=== PATIENT | male | born 1970 | race African-American/Black ===

== ENCOUNTER 2018-02-03 09:57 | Inpatient (IN) | payer MEDICAID ==
[~2018-02-03] VITALS: Ht 170.2 cm; Wt 79.4 kg
--- NOTE | 2018-02-03 10:49 | Emergency Room Report ---
History of Present Illness General Chief Complaint: Lower Extremity Injury Source: Patient Present Illness HPI Patient initially presents for complaints of pain to the left knee 2 days ago he was getting out of a car when he turned He felt a pop in the left knee However while here the patient also reports that he has had swelling in the left calf area over the past 3 weeks He reports he had extensive blood work and x-ray imaging recently at [facility] Denies any chest pain or shortness of breath Denies any other fall or other trauma Allergies: Coded Allergies: PENICILLINS (Verified Allergy, Unknown, 02/03/18) Patient History Past Medical History: see triage record Pertinent Family History: none Reviewed Nursing Documentation: PMH: Agreed; PSxH: Agreed Nursing Documentation-PMH Past Medical History: No Stated History Review of Systems All Other Systems: negative except mentioned in HPI Physical Exam Vital Signs Date Time Temp Pulse Resp B/P (MAP) Pulse Ox O2 Delivery O2 Flow Rate FiO2 02/03/18 10:06 98.7 93 18 142/96 97 Room Air 98.8 Sp02 EP Interpretation: reviewed, normal General Appearance: well appearing, no apparent distress Head: normocephalic, atraumatic Eyes: bilateral eye PERRL, bilateral eye EOMI ENT: normal pharynx, no angioedema Neck: supple Respiratory: lungs clear, normal breath sounds Cardiovascular #1: regular rate, rhythm Gastrointestinal: non tender, soft Musculoskeletal: back normal, other - Some tenderness palpated to the left knee , no obvious effusion, swelling is noted with dependent edema to the left ankle calf Is nontender Neurologic: alert, oriented x3, responsive Skin: other - As above Lymphatic: no adenopathy Medical Decision Making Diagnostic Impression: Primary Impression: DVT (deep venous thrombosis) ER Course Multiple differentials considered Given the patient's swelling in the leg ultrasound was obtained It does show evidence of posterior tibial blood clot this is a deep vein However given the distal aspect below the knee Treatment is controversial given the patient's lack of any obvious appropriate outpatient follow-up Lovenox was provided and patient admitted for further inpatient care and consultation Labs Test 02/03/18 12:13 White Blood Count 6.2 K/UL (4.8-10.8) Red Blood Count 4.64 M/UL (4.70-6.10) Hemoglobin 13.1 G/DL (14.2-18.0) Hematocrit 38.5 % (42.0-52.0) Mean Corpuscular Volume 83 FL (80-99) Mean Corpuscular Hemoglobin 28.3 PG (27.0-31.0) Mean Corpuscular Hemoglobin Concent 34.1 G/DL (32.0-36.0) Red Cell Distribution Width 11.9 % (11.6-14.8) Platelet Count 217 K/UL (150-450) Mean Platelet Volume 7.3 FL (6.5-10.1) Neutrophils (%) (Auto) 75.1 % (45.0-75.0) Lymphocytes (%) (Auto) 16.9 % (20.0-45.0) Monocytes (%) (Auto) 6.2 % (1.0-10.0) Eosinophils (%) (Auto) 1.1 % (0.0-3.0) Basophils (%) (Auto) 0.7 % (0.0-2.0) Prothrombin Time 10.6 SEC (9.30-11.50) Prothromb Time International Ratio 1.0 (0.9-1.1) Activated Partial Thromboplast Time 29 SEC (23-33) Sodium Level 139 MMOL/L (136-145) Potassium Level 4.5 MMOL/L (3.5-5.1) Chloride Level 105 MMOL/L (98-107) Carbon Dioxide Level 26 MMOL/L (21-32) Anion Gap 8 mmol/L (5-15) Blood Urea Nitrogen 13 mg/dL (7-18) Creatinine 1.1 MG/DL (0.55-1.30) Estimat Glomerular Filtration Rate > 60 mL/min (>60) Glucose Level 98 MG/DL (74-106) Calcium Level 9.3 MG/DL (8.5-10.1) Rhythm Strip Diag. Results EP Interpretation: yes Rate: 77 Rhythm: NSR, no PVC's, no ectopy Other X-Ray Diagnostic Results Other X-Ray Diagnostic Results : X-Ray ordered: Left knee # of Views/Limited Vs Complete: 3 View Indication: Pain EP Interpretation: Yes Interpretation: no dislocation, no soft tissue swelling, no fractures Impression: No acute disease Electronically Signed by: Saranya Dockery, DO CT/MRI/US Diagnostic Results CT/MRI/US Diagnostic Results : Impression venous ultrasound: evidence of DVT left posterior tibial vein Last Vital Signs Date Time Temp Pulse Resp B/P (MAP) Pulse Ox O2 Delivery O2 Flow Rate FiO2 02/03/18 10:06 98.7 93 18 142/96 97 Room Air 98.8 Status: improved Disposition: ADMITTED INPATIENT Condition: Serious Referrals: NOT CHOSEN IPA/,REFERRING (PCP) Saranya Dockery DO February 03, 2018 10:49
[2018-02-03] MEDS ORDERED: Enoxaparin 80mg Inj SUBQ ONE (12:00)
[2018-02-03 12:25] LABS: BASOPHILS % (AUTO) 0.7 % (0.0-2.0); EOSINOPHILS % (AUTO) 1.1 % (0.0-3.0); HEMATOCRIT 38.5 % (42.0-52.0); HEMOGLOBIN 13.1 G/DL (14.2-18.0); LYMPHOCYTES % (AUTO) 16.9 % (20.0-45.0); MEAN CORPUSCULAR VOLUME 83 FL (80-99); MONOCYTES % (AUTO) 6.2 % (1.0-10.0); NEUTROPHILS % (AUTO) 75.1 % (45.0-75.0); PLATELET COUNT 217 K/UL (150-450); RED BLOOD COUNT 4.64 M/UL (4.70-6.10); RED CELL DISTRIBUTION WIDTH 11.9 % (11.6-14.8); WHITE BLOOD COUNT 6.2 K/UL (4.8-10.8)
[2018-02-03 12:33] LABS: ANION GAP 8 mmol/L (5-15); BLOOD UREA NITROGEN 13 mg/dL (7-18); CALCIUM 9.3 MG/DL (8.5-10.1); CARBON DIOXIDE 26 MMOL/L (21-32); CHLORIDE 105 MMOL/L (98-107); CREATININE 1.1 MG/DL (0.55-1.30); POTASSIUM 4.5 MMOL/L (3.5-5.1); SODIUM 139 MMOL/L (136-145)
[2018-02-03] MEDS ORDERED: NAPROXEN500 M2 ORAL (13:08)
[2018-02-03] MEDS ORDERED: CYCLOBENZAPRINE10 MG ORAL (13:08)
[2018-02-03] MEDS ORDERED: TYLENOL EXTRA500 MG ORAL (13:08)
[2018-02-03] MEDS ORDERED: METHOCARBAMOL500 MG ORAL (13:08)
[2018-02-03 13:27] VITALS: BP 132/86
[2018-02-03 16:00] VITALS: BP 150/86
[2018-02-03 20:00] VITALS: BP 137/86
[2018-02-03] MEDS: Miralax 17gm pkt ORAL SCH (22:04)
[2018-02-03] MEDS: Enoxaparin 80mg Inj SUBQ SCH (22:05)
[2018-02-04 04:00] VITALS: BP 129/80
[2018-02-04 08:00] VITALS: BP 136/87
[2018-02-04] MEDS: Enoxaparin 80mg Inj SUBQ SCH ×2 (08:28→20:56)
[2018-02-04 12:00] VITALS: BP 128/86
--- NOTE | 2018-02-04 15:00 | History and Physical Report ---
DATE OF ADMISSION: 02/03/2018 TIME: 2 p.m. CONSULTANTS: 1. Mitchell Soriano M.D. 2. Cecil Salguero M.D. CHIEF COMPLAINT: Left leg DVT. BRIEF HISTORY: This is a 47-year-old male, who lives at home, presents with left leg swelling and pain for three weeks increasingly, came to [place], diagnosed with left leg DVT, admitted to medical floor for further treatment. Currently, calm in bed, complaining of slight left leg pain. No complaint. REVIEW OF SYSTEMS: No chest pain. No shortness of breath. No nausea, vomiting, or diarrhea. PAST MEDICAL HISTORY: Nothing. PAST SURGICAL HISTORY: Hemorrhoidectomy. MEDICATIONS: Include Lovenox, MiraLAX, Dulcolax, and Tylenol. ALLERGIES: Penicillin. SOCIAL HISTORY: No smoke. Occasional alcohol. No intravenous drug abuse. FAMILY HISTORY: Noncontributory. PHYSICAL EXAMINATION: GENERAL: Calm in bed, oriented x3, in no acute distress. VITAL SIGNS: Temperature 97, pulse 82, respirations 21, and blood pressure 120/86. CARDIOVASCULAR: No murmurs. LUNGS: Distant and clear. ABDOMEN: Bowel sounds positive. Nontender. Nondistended. EXTREMITIES: No cyanosis, clubbing, or edema. Left calf slightly tender. No swelling. No redness. NEUROLOGIC: The patient moves all extremities slightly weak. LABORATORY DATA: Labs at this time show hemoglobin 13.1, otherwise CBC is normal. BMP shows they are normal. INR is 1.0. PTT 29. ASSESSMENT: Left leg DVT and anemia. PLAN: 1. Continue premeds. 2. Anticoagulate. 3. CBC and BMP in the morning. 4. Check INR and PTT per Hematology. 5. We will continue to follow this patient. Jarret Ge D.O. DR: KEN JOB#: [id number] CC:
[2018-02-04 16:00] VITALS: BP 126/78
[2018-02-04 20:00] VITALS: BP 135/83
[2018-02-04] MEDS: Miralax 17gm pkt ORAL SCH (20:52)
[2018-02-05] VITALS: BP 140/87
--- NOTE | 2018-02-05 00:15 | Consultation ---
DATE OF CONSULTATION: 02/03/2018 NOTE: POOR AUDIO HEMATOLOGY/ONCOLOGY CONSULTATION ATTENDING PHYSICIAN: Jarret Ge D.O. REASON FOR CONSULTATION: Management of lower extremity DVT. IDENTIFICATION DATA: Dear Dr. Jarret Ge: The patient is a pleasant 47-year-old male with past medical history significant for history of leg swelling, who has had recent blood work completed. At this time, presents with leg ultrasound, which shows DVT. Hematology/Oncology Service consulted as well as Pulmonary team. He fell off on his left knee DVT. The patient is currently on Lovenox 100 mg b.i.d dosing. PAST MEDICAL HISTORY: As noted above. PAST SURGICAL HISTORY: None reported. ALLERGIES: No known drug allergies besides penicillin. FAMILY HISTORY: Noncontributory. REVIEW OF SYSTEMS: CONSTITUTIONAL: No fevers, chills, or night sweats. SKIN: No rashes, bumps, or itching. HEENT: No headache, hearing, or vision change. BREASTS: No lumps, pain, or discharge. PULMONARY: No cough, sputum, or shortness of breath. GASTROINTESTINAL: No nausea, vomiting, or diarrhea. GENITOURINARY: No dysuria, frequency, or urgency. MUSCULOSKELETAL: No joint swelling, muscle pain, or trauma. PHYSICAL EXAMINATION: VITAL SIGNS: Reviewed. GENERAL: No distress. PULMONARY: Decreased breath sounds. CARDIOVASCULAR: Regular rate. No S3 or S4. ABDOMEN: Soft, nontender, and nondistended. EXTREMITIES: Sometimes the left knee. Moderate effusion is noted. LABORATORY AND DIAGNOSTIC DATA: CBC shows hemoglobin platelet count 217,000. ASSESSMENT AND RECOMMENDATIONS: 1. Left lower extremity deep venous thrombosis. 2. Left posterior deep venous thrombosis. This is deep vein, however, is distal below the knee. Currently, the patient has been restarted on Lovenox b.i.d. dosing. Consider change to Coumadin once . 3. Anemia due to underlying chronic disease. Continue to closely monitor. 4. Left lower extremity pain due to underlying deep venous thrombosis. 5. Hypertension. Systolic blood pressure goal is less than 140. 6. . I appreciate the consultation. Mitchell Selma Soriano DR: Airam JOB#: [id number] CC:
[2018-02-05 04:00] VITALS: BP 114/80
--- NOTE | 2018-02-05 07:15 | General Progress Note ---
Subjective Date patient seen: February 04, 2018 Constitutional: Denies: no symptoms, chills, diaphoresis, fever, malaise, weakness, other HEENT: Denies: no symptoms, eye pain, blurred vision, tearing, double vision, ear pain, ear discharge, nose pain, nose congestion, throat pain, throat swelling, mouth pain, mouth swelling, other Cardiovascular: Denies: no symptoms, chest pain, edema, irregular heart rate, lightheadedness, palpitations, syncope, other Respiratory: Denies: no symptoms, cough, orthopnea, shortness of breath, SOB with excertion, SOB at rest, sputum, stridor, wheezing, other Gastrointestinal/Abdominal: Denies: no symptoms, abdomen distended, abdominal pain, black stools, tarry stools, blood in stool, constipated, diarrhea, difficulty swallowing, nausea, poor appetite, poor fluid intake, rectal bleeding , vomiting, other Genitourinary: Denies: no symptoms, burning, discharge, frequency, flank pain, hematuria, incontinence, pain, urgency, other Neurologic/Psychiatric: Denies: no symptoms, anxiety, depressed, emotional problems, headache, numbness, paresthesia, pre-existing deficit, seizure, tingling, tremors, weakness, other Endocrine: Denies: no symptoms, excessive sweating, flushing, intolerance to cold, intolerance to heat, increased hunger, increased thirst, increased urine, unexplained weight gain, unexplained weight loss, other Hematologic/Lymphatic: Denies: no symptoms, anemia, easy bleeding, easy bruising, other Allergies: Coded Allergies: PENICILLINS (Verified Allergy, Unknown, 02/03/18) Subjective ASSESSMENT AND RECOMMENDATIONS: 1. Left lower extremity deep venous thrombosis of the left posterior deep venous thrombosis. This is deep vein, however, is distal below the knee. --> Currently, the patient has been restarted on Lovenox b.i.d. dosing. Consider change to Coumadin or apixaban depending on insurance --> Will d/w casework supervisor 3. Anemia due to underlying chronic disease. Continue to closely monitor. 4. Left lower extremity pain due to underlying deep venous thrombosis. 5. Hypertension. Systolic blood pressure goal is less than 140. --> improved Objective Last 24 Hour Vital Signs Date Time Temp Pulse Resp B/P (MAP) Pulse Ox O2 Delivery O2 Flow Rate FiO2 02/05/18 04:00 98.1 82 20 114/80 97 98.1 02/05/18 00:00 98.9 77 20 140/87 99 98.9 02/04/18 20:00 98.6 86 20 135/83 99 98.6 02/04/18 16:00 98.1 87 20 126/78 99 Room Air 98.1 02/04/18 12:00 97.5 82 21 128/86 99 Room Air 97.5 02/04/18 08:00 97.5 93 20 136/87 98 Room Air 97.5 Intake and Output 02/04/18 02/05/18 19:00 07:00 Intake Total 800 ml 660 ml Balance 800 ml 660 ml Intake Oral 800 ml 660 ml # Voids 3 Height (Feet): 5 Height (Inches): 7.00 Weight (Pounds): 175 Mitchell Soriano MD February 05, 2018 07:15
[2018-02-05 08:00] VITALS: BP 134/89
[2018-02-05] MEDS: Enoxaparin 80mg Inj SUBQ SCH ×2 (08:53→20:59)
[2018-02-05 09:38] LABS: BASOPHILS % (AUTO) 0.8 % (0.0-2.0); EOSINOPHILS % (AUTO) 3.3 % (0.0-3.0); HEMATOCRIT 38.4 % (42.0-52.0); HEMOGLOBIN 13.4 G/DL (14.2-18.0); LYMPHOCYTES % (AUTO) 24.4 % (20.0-45.0); MEAN CORPUSCULAR VOLUME 83 FL (80-99); MONOCYTES % (AUTO) 5.6 % (1.0-10.0); NEUTROPHILS % (AUTO) 65.9 % (45.0-75.0); PLATELET COUNT 236 K/UL (150-450); RED BLOOD COUNT 4.65 M/UL (4.70-6.10); WHITE BLOOD COUNT 5.2 K/UL (4.8-10.8)
[2018-02-05 09:50] LABS: ANION GAP 8 mmol/L (5-15); BLOOD UREA NITROGEN 13 mg/dL (7-18); CALCIUM 9.4 MG/DL (8.5-10.1); CARBON DIOXIDE 26 MMOL/L (21-32); CHLORIDE 103 MMOL/L (98-107); CREATININE 1.2 MG/DL (0.55-1.30); POTASSIUM 4.1 MMOL/L (3.5-5.1); SODIUM 137 MMOL/L (136-145)
[2018-02-05 12:00] VITALS: BP 130/84
--- NOTE | 2018-02-05 15:06 | General Progress Note ---
Assessment/Plan Problem List: (1) Injury of lower extremity ICD Codes: S89.90XA - Unspecified injury of unspecified lower leg, initial encounter SNOMED: 087212554 (2) DVT (deep venous thrombosis) ICD Codes: I82.409 - Acute embolism and thrombosis of unspecified deep veins of unspecified lower extremity SNOMED: 233857029 (3) Acute deep vein thrombosis ICD Codes: I82.409 - Acute embolism and thrombosis of unspecified deep veins of unspecified lower extremity SNOMED: 057273215953975 Status: stable, progressing, tolerating diet Assessment/Plan o2 prn pain control anticoag heme f/u cbc bmp am Subjective Constitutional: Reports: weakness Allergies: Coded Allergies: PENICILLINS (Verified Allergy, Unknown, 02/03/18) All Systems: reviewed and negative except above Subjective sl l calf pain Objective Last 24 Hour Vital Signs Date Time Temp Pulse Resp B/P (MAP) Pulse Ox O2 Delivery O2 Flow Rate FiO2 02/05/18 12:00 97.1 79 16 130/84 98 Room Air 97.1 02/05/18 08:00 97.9 88 16 134/89 97 Room Air 97.9 02/05/18 04:00 98.1 82 20 114/80 97 98.1 02/05/18 00:00 98.9 77 20 140/87 99 98.9 02/04/18 20:00 98.6 86 20 135/83 99 98.6 02/04/18 16:00 98.1 87 20 126/78 99 Room Air 98.1 Intake and Output 02/04/18 02/05/18 19:00 07:00 Intake Total 800 ml 660 ml Balance 800 ml 660 ml Intake Oral 800 ml 660 ml # Voids 3 Laboratory Tests 02/05/18 07:10: White Blood Count 5.2, Red Blood Count 4.65L, Hemoglobin 13.4L, Hematocrit 38.4L , Mean Corpuscular Volume 83, Mean Corpuscular Hemoglobin 28.8, Mean Corpuscular Hemoglobin Concent 34.9, Red Cell Distribution Width 12.0, Platelet Count 236, Mean Platelet Volume 7.4, Neutrophils (%) (Auto) 65.9, Lymphocytes (% ) (Auto) 24.4, Monocytes (%) (Auto) 5.6, Eosinophils (%) (Auto) 3.3H, Basophils (%) (Auto) 0.8, Sodium Level 137, Potassium Level 4.1, Chloride Level 103, Carbon Dioxide Level 26, Anion Gap 8, Blood Urea Nitrogen 13, Creatinine 1.2, Estimat Glomerular Filtration Rate > 60, Glucose Level 114H, Calcium Level 9.4 Height (Feet): 5 Height (Inches): 7.00 Weight (Pounds): 175 General Appearance: alert EENT: normal ENT inspection Neck: normal alignment Cardiovascular: normal peripheral pulses, normal rate, regular rhythm Respiratory/Chest: chest wall non-tender, lungs clear, normal breath sounds Abdomen: normal bowel sounds, non tender, soft Extremities: normal inspection Edema: no edema noted Arm (L), no edema noted Arm (R), no edema noted Leg (L), no edema noted Leg (R), no edema noted Pedal (L), no edema noted Pedal (R), no edema noted Generalized Neurologic: responsive, motor weakness Skin: normal pigmentation, warm/dry Objective le l calf tender CHATO MARSHALL February 05, 2018 15:06
[2018-02-05 16:00] VITALS: BP 146/95
[2018-02-05 20:00] VITALS: BP 132/97
[2018-02-05] MEDS: Miralax 17gm pkt ORAL SCH (20:49)
--- NOTE | 2018-02-05 23:39 | General Progress Note ---
Assessment/Plan Assessment/Plan ASSESSMENT AND RECOMMENDATIONS: #. Left lower extremity deep venous thrombosis of the left posterior deep venous thrombosis. --> This is deep vein, however, is distal below the knee. --> Currently, the patient has been restarted on Lovenox b.i.d. dosing. --> Consider change to Coumadin or apixaban depending on insurance --> Will d/w case finishing machine adjuster #. Anemia due to underlying chronic disease. Continue to closely monitor. --> H/H stable. --> Blood transfusion not required unless symptomatic or drops below 7 #. Left lower extremity pain due to underlying deep venous thrombosis. #. Hypertension. Systolic blood pressure goal is less than 140. --> improved Subjective Date patient seen: February 05, 2018 Constitutional: Denies: no symptoms, chills, diaphoresis, fever, malaise, weakness, other HEENT: Denies: no symptoms, eye pain, blurred vision, tearing, double vision, ear pain, ear discharge, nose pain, nose congestion, throat pain, throat swelling, mouth pain, mouth swelling, other Cardiovascular: Denies: no symptoms, chest pain, edema, irregular heart rate, lightheadedness, palpitations, syncope, other Respiratory: Denies: no symptoms, cough, orthopnea, shortness of breath, SOB with excertion, SOB at rest, sputum, stridor, wheezing, other Gastrointestinal/Abdominal: Denies: no symptoms, abdomen distended, abdominal pain, black stools, tarry stools, blood in stool, constipated, diarrhea, difficulty swallowing, nausea, poor appetite, poor fluid intake, rectal bleeding , vomiting, other Genitourinary: Denies: no symptoms, burning, discharge, frequency, flank pain, hematuria, incontinence, pain, urgency, other Neurologic/Psychiatric: Denies: no symptoms, anxiety, depressed, emotional problems, headache, numbness, paresthesia, pre-existing deficit, seizure, tingling, tremors, weakness, other Endocrine: Denies: no symptoms, excessive sweating, flushing, intolerance to cold, intolerance to heat, increased hunger, increased thirst, increased urine, unexplained weight gain, unexplained weight loss, other Allergies: Coded Allergies: PENICILLINS (Verified Allergy, Unknown, 02/03/18) Subjective H/H stable. No acute events. Objective Last 24 Hour Vital Signs Date Time Temp Pulse Resp B/P (MAP) Pulse Ox O2 Delivery O2 Flow Rate FiO2 02/05/18 20:00 98.4 91 20 132/97 97 98.4 02/05/18 16:00 98.6 92 20 146/95 99 Room Air 98.6 02/05/18 12:00 97.1 79 16 130/84 98 Room Air 97.1 02/05/18 08:00 97.9 88 16 134/89 97 Room Air 97.9 02/05/18 04:00 98.1 82 20 114/80 97 98.1 02/05/18 00:00 98.9 77 20 140/87 99 98.9 Intake and Output 02/04/18 02/05/18 19:00 07:00 Intake Total 800 ml 660 ml Balance 800 ml 660 ml Intake Oral 800 ml 660 ml # Voids 3 Laboratory Tests 02/05/18 07:10: White Blood Count 5.2, Red Blood Count 4.65L, Hemoglobin 13.4L, Hematocrit 38.4L , Mean Corpuscular Volume 83, Mean Corpuscular Hemoglobin 28.8, Mean Corpuscular Hemoglobin Concent 34.9, Red Cell Distribution Width 12.0, Platelet Count 236, Mean Platelet Volume 7.4, Neutrophils (%) (Auto) 65.9, Lymphocytes (% ) (Auto) 24.4, Monocytes (%) (Auto) 5.6, Eosinophils (%) (Auto) 3.3H, Basophils (%) (Auto) 0.8, Sodium Level 137, Potassium Level 4.1, Chloride Level 103, Carbon Dioxide Level 26, Anion Gap 8, Blood Urea Nitrogen 13, Creatinine 1.2, Estimat Glomerular Filtration Rate > 60, Glucose Level 114H, Calcium Level 9.4 Height (Feet): 5 Height (Inches): 7.00 Weight (Pounds): 175 General Appearance: no apparent distress EENT: normal ENT inspection Cardiovascular: normal rate, regular rhythm Respiratory/Chest: lungs clear, normal breath sounds Abdomen: non tender, soft Mitchell Soriano MD February 05, 2018 23:39
[2018-02-06] VITALS: BP 135/87
[2018-02-06 04:00] VITALS: BP 121/78
[2018-02-06 08:00] VITALS: BP 129/80
[2018-02-06] MEDS: Enoxaparin 80mg Inj SUBQ SCH (08:29)
[2018-02-06 08:34] LABS: BASOPHILS % (AUTO) 0.6 % (0.0-2.0); HEMATOCRIT 38.4 % (42.0-52.0); HEMOGLOBIN 12.9 G/DL (14.2-18.0); LYMPHOCYTES % (AUTO) 29.2 % (20.0-45.0); MEAN CORPUSCULAR VOLUME 84 FL (80-99); NEUTROPHILS % (AUTO) 59.3 % (45.0-75.0); PLATELET COUNT 222 K/UL (150-450); RED BLOOD COUNT 4.58 M/UL (4.70-6.10); RED CELL DISTRIBUTION WIDTH 12.4 % (11.6-14.8); WHITE BLOOD COUNT 4.5 K/UL (4.8-10.8)
[2018-02-06 08:54] LABS: ANION GAP 7 mmol/L (5-15); BLOOD UREA NITROGEN 14 mg/dL (7-18); CALCIUM 9.5 MG/DL (8.5-10.1); CARBON DIOXIDE 28 MMOL/L (21-32); CHLORIDE 104 MMOL/L (98-107); CREATININE 1.1 MG/DL (0.55-1.30); POTASSIUM 4.4 MMOL/L (3.5-5.1); SODIUM 139 MMOL/L (136-145)
[2018-02-06 12:00] VITALS: BP 125/75
--- NOTE | 2018-02-06 14:36 | General Progress Note ---
Assessment/Plan Problem List: (1) Injury of lower extremity ICD Codes: S89.90XA - Unspecified injury of unspecified lower leg, initial encounter SNOMED: 514449212 (2) DVT (deep venous thrombosis) ICD Codes: I82.409 - Acute embolism and thrombosis of unspecified deep veins of unspecified lower extremity SNOMED: 463532975 (3) Acute deep vein thrombosis ICD Codes: I82.409 - Acute embolism and thrombosis of unspecified deep veins of unspecified lower extremity SNOMED: 423125390651351 Status: stable, progressing, tolerating diet Assessment/Plan o2 prn pain control anticoag heme f/u dc if clear Subjective Constitutional: Reports: weakness Allergies: Coded Allergies: PENICILLINS (Verified Allergy, Unknown, 02/03/18) All Systems: reviewed and negative except above Subjective sl l calf pain Objective Last 24 Hour Vital Signs Date Time Temp Pulse Resp B/P (MAP) Pulse Ox O2 Delivery O2 Flow Rate FiO2 02/06/18 12:00 98.1 84 21 125/75 98 Room Air 98.1 02/06/18 08:00 97.2 78 20 129/80 100 Room Air 97.2 02/06/18 04:00 98.5 83 20 121/78 98 98.5 02/06/18 00:00 98.2 89 20 135/87 98 98.2 02/05/18 20:00 98.4 91 20 132/97 97 98.4 02/05/18 16:00 98.6 92 20 146/95 99 Room Air 98.6 Intake and Output 02/05/18 02/06/18 19:00 07:00 Intake Total 1000 ml 420 ml Balance 1000 ml 420 ml Intake Oral 1000 ml 420 ml # Voids 5 Laboratory Tests 02/06/18 07:00: White Blood Count 4.5L, Red Blood Count 4.58L, Hemoglobin 12.9L, Hematocrit 38.4L, Mean Corpuscular Volume 84, Mean Corpuscular Hemoglobin 28.2, Mean Corpuscular Hemoglobin Concent 33.6, Red Cell Distribution Width 12.4, Platelet Count 222, Mean Platelet Volume 7.2, Neutrophils (%) (Auto) 59.3, Lymphocytes (% ) (Auto) 29.2, Monocytes (%) (Auto) 6.0, Eosinophils (%) (Auto) 5.0H, Basophils (%) (Auto) 0.6, Sodium Level 139, Potassium Level 4.4, Chloride Level 104, Carbon Dioxide Level 28, Anion Gap 7, Blood Urea Nitrogen 14, Creatinine 1.1, Estimat Glomerular Filtration Rate > 60, Glucose Level 113H, Calcium Level 9.5 Height (Feet): 5 Height (Inches): 7.00 Weight (Pounds): 175 General Appearance: alert EENT: normal ENT inspection Neck: normal alignment Cardiovascular: normal peripheral pulses, normal rate, regular rhythm Respiratory/Chest: chest wall non-tender, lungs clear, normal breath sounds Abdomen: normal bowel sounds, non tender, soft Extremities: normal inspection Edema: no edema noted Arm (L), no edema noted Arm (R), no edema noted Leg (L), no edema noted Leg (R), no edema noted Pedal (L), no edema noted Pedal (R), no edema noted Generalized Neurologic: responsive, motor weakness Skin: normal pigmentation, warm/dry Objective le l calf tender CHATO MARSHALL February 06, 2018 14:36
[2018-02-06] MEDS ORDERED: XARELTO10 MG ORAL ×2 (15:49)
[2018-02-06 15:59] VITALS: BP 137/87
--- NOTE | 2018-02-06 23:05 | General Progress Note ---
Assessment/Plan Assessment/Plan ASSESSMENT AND RECOMMENDATIONS: #. Left lower extremity deep venous thrombosis of the left posterior deep venous thrombosis. --> This is deep vein, however, is distal below the knee. --> Currently, the patient has been restarted on Lovenox b.i.d. dosing. --> Consider change to Coumadin or apixaban depending on insurance --> Will d/w case packer and sealer. Monitor closely. #. Anemia due to underlying chronic disease. Continue to closely monitor. --> H/H stable. --> Blood transfusion not required unless symptomatic or drops below 7 #. Left lower extremity pain due to underlying deep venous thrombosis. #. Hypertension. Systolic blood pressure goal is less than 140. --> improved DC planning. Subjective Date patient seen: February 06, 2018 Constitutional: Denies: no symptoms, chills, diaphoresis, fever, malaise, weakness, other HEENT: Denies: no symptoms, eye pain, blurred vision, tearing, double vision, ear pain, ear discharge, nose pain, nose congestion, throat pain, throat swelling, mouth pain, mouth swelling, other Cardiovascular: Denies: no symptoms, chest pain, edema, irregular heart rate, lightheadedness, palpitations, syncope, other Respiratory: Denies: no symptoms, cough, orthopnea, shortness of breath, SOB with excertion, SOB at rest, sputum, stridor, wheezing, other Gastrointestinal/Abdominal: Denies: no symptoms, abdomen distended, abdominal pain, black stools, tarry stools, blood in stool, constipated, diarrhea, difficulty swallowing, nausea, poor appetite, poor fluid intake, rectal bleeding , vomiting, other Genitourinary: Denies: no symptoms, burning, discharge, frequency, flank pain, hematuria, incontinence, pain, urgency, other Neurologic/Psychiatric: Denies: no symptoms, anxiety, depressed, emotional problems, headache, numbness, paresthesia, pre-existing deficit, seizure, tingling, tremors, weakness, other Hematologic/Lymphatic: Reports: anemia Allergies: Coded Allergies: PENICILLINS (Verified Allergy, Unknown, 02/03/18) Subjective H/H stable. No acute medical distress. Pending discharge today. Objective Last 24 Hour Vital Signs Date Time Temp Pulse Resp B/P (MAP) Pulse Ox O2 Delivery O2 Flow Rate FiO2 02/06/18 15:59 98.2 92 21 137/87 96 Room Air 98.2 02/06/18 12:00 98.1 84 21 125/75 98 Room Air 98.1 02/06/18 08:00 97.2 78 20 129/80 100 Room Air 97.2 02/06/18 04:00 98.5 83 20 121/78 98 98.5 02/06/18 00:00 98.2 89 20 135/87 98 98.2 Intake and Output 02/05/18 02/06/18 19:00 07:00 Intake Total 1000 ml 420 ml Balance 1000 ml 420 ml Intake Oral 1000 ml 420 ml # Voids 5 Laboratory Tests 02/06/18 07:00: White Blood Count 4.5L, Red Blood Count 4.58L, Hemoglobin 12.9L, Hematocrit 38.4L, Mean Corpuscular Volume 84, Mean Corpuscular Hemoglobin 28.2, Mean Corpuscular Hemoglobin Concent 33.6, Red Cell Distribution Width 12.4, Platelet Count 222, Mean Platelet Volume 7.2, Neutrophils (%) (Auto) 59.3, Lymphocytes (% ) (Auto) 29.2, Monocytes (%) (Auto) 6.0, Eosinophils (%) (Auto) 5.0H, Basophils (%) (Auto) 0.6, Sodium Level 139, Potassium Level 4.4, Chloride Level 104, Carbon Dioxide Level 28, Anion Gap 7, Blood Urea Nitrogen 14, Creatinine 1.1, Estimat Glomerular Filtration Rate > 60, Glucose Level 113H, Calcium Level 9.5 Height (Feet): 5 Height (Inches): 7.00 Weight (Pounds): 175 General Appearance: no apparent distress EENT: normal ENT inspection Neck: normal alignment, supple Cardiovascular: normal rate, regular rhythm Respiratory/Chest: chest wall non-tender, lungs clear Abdomen: normal bowel sounds, non tender Mitchell Soriano MD February 06, 2018 23:05
--- NOTE | 2018-02-07 16:21 | Discharge Summary ---
Discharge Summary Hospital Course Date of Admission February 03, 2018 at 12:36 Date of Discharge February 06, 2018 at 17:15 Admitting Diagnosis ACUTE DVT HPI Vernon Espinosa is a 47 year old male who was admitted on February 03, 2018 at 12:36 for Acute Deep Vein Thrombosis Hospital Course [id number] Discharge Discharge Disposition Patient was discharged to Home (01) Vidya Gomez NP February 07, 2018 16:21
--- NOTE | 2018-02-08 04:30 | Discharge Summary 2 SIG ---
DATE OF ADMISSION: 02/03/2018 DATE OF DISCHARGE: 02/06/2018 SHADE BANDER: Mitchell Soriano M.D. HOSPITAL COURSE: The patient is a 47-year-old male, who lives at home, presented to ED complaining of left leg swelling and pain for three weeks that has been increasing. He denied chest pain or shortness of breath. Denied any fall or trauma. He stated he was getting out of the car and when he turned, felt a pop in the left knee pain. On evaluation at ED, blood work was stable. X-ray of the left knee showed no dislocation, no soft tissue swelling, and no fractures. Venous ultrasound showed evidence of DVT on the left posterior tibial vein. He was then admitted for evaluation of acute DVT. He was given Lovenox subcutaneous. He was seen by link trainer operator. Deep vein, however, is distal [id number]. He had anemia, however, H and H was stable. He was eventually cleared for discharge home. Advised to take Xarelto 15 mg b.i.d. for 21 days, then 20 mg daily. After, he was discharged home. FINAL DIAGNOSES: 1. Acute deep venous thrombosis on the left leg. 2. Anemia due to underlying chronic disease. 3. Lower extremity pain due to underlying deep venous thrombosis. 4. Hypertension. DISPOSITION: The patient was discharged home. DISCHARGE MEDICATIONS: Refer to medication list. DISCHARGE INSTRUCTIONS: Follow up with PCP in a week. Jarret Ge D.O. I have been assigned to dictate discharge summary on this account and I was not involved in the patient's management. Vidya Gomez N.P. DR: TIMMY JOB#: [id number] CC:
--- NOTE | 2018-02-08 15:32 | Diagnostic Imaging Report ---
Indication: Pain 3 views of the left knee were obtained. Findings: No acute fracture, malalignment, or joint effusion are identified. Joint space is relatively well-maintained. Impression: Negative for acute injury
== END 2018-02-06 17:15 | disposition home or self-care (01) | DRG 197 ==
LOC: EMR 10:40 → 4E 12:36 → EDBEDREQ 12:39
DX: I82.4Z2 Acute embolism and thrombosis of unspecified deep veins of left distal lower extremity (principal); I10 Essential (primary) hypertension; D63.8 Anemia in other chronic diseases classified elsewhere; Z88.0 Allergy status to penicillin
CPT/HCPCS: 36415; 80048; 82140; 82378; 85025; 85300; 85303; 85305; 85610; 85613; 85730; 86147; 93971; 99285

== ENCOUNTER 2018-03-29 10:24 | Inpatient (IN) | payer MEDICAID ==
[~2018-03-29] VITALS: Ht 170.2 cm; Wt 77.1 kg
[~2018-03-29 10:24] MED LIST: CYCLOBENZAPRINE10 MG ORAL; METHOCARBAMOL500 MG ORAL; NAPROXEN500 M2 ORAL; TYLENOL EXTRA500 MG ORAL; XARELTO10 MG ORAL
[2018-03-29] MEDS ORDERED: LACTULOSE20 GM/301 ORAL (10:38)
[2018-03-29] MEDS ORDERED: VITAMIN D1000 UNI1 ORAL (10:38)
[2018-03-29 10:39] VITALS: BP 146/87
--- NOTE | 2018-03-29 11:32 | Emergency Room Report ---
History of Present Illness General Chief Complaint: Pain Source: Patient Present Illness HPI 47-year-old male presents ED complaining of left leg pain. Started one day ago. Notes history of DVT in that leg. Is currently on Xarelto. States he is compliant with the medication. Pain is 6 out of 10, cramping, nonradiating. Denies any recent injury. No other aggravating relieving factors. Denies any other associated symptoms Allergies: Coded Allergies: PENICILLINS (Verified Allergy, Unknown, 02/03/18) Patient History Past Medical History: none Past Surgical History: none Pertinent Family History: none Social History: Denies: smoking, alcohol use, drug use Immunizations: UTD Reviewed Nursing Documentation: PMH: Agreed; PSxH: Agreed Nursing Documentation-PMH Past Medical History: No History, Except For Hx Cardiac Problems: No - left leg blood clott Hx Cancer: No Hx Neurological Problems: No Review of Systems All Other Systems: negative except mentioned in HPI Physical Exam Vital Signs Date Time Temp Pulse Resp B/P (MAP) Pulse Ox O2 Delivery O2 Flow Rate FiO2 03/29/18 10:31 98.1 89 18 146/87 99 Room Air 98.1 Sp02 EP Interpretation: reviewed, normal General Appearance: no apparent distress, alert, GCS 15, non-toxic Head: normocephalic Eyes: bilateral eye normal inspection, bilateral eye PERRL ENT: normal ENT inspection Neck: normal inspection Respiratory: normal inspection Cardiovascular #1: normal inspection Gastrointestinal: normal inspection Rectal: deferred Genitourinary: no CVA tenderness Musculoskeletal: calf tenderness Neurologic: alert, oriented x3, responsive, motor strength/tone normal, sensory intact, speech normal Psychiatric: judgement/insight normal, memory normal, mood/affect normal, no suicidal/homicidal ideation Skin: normal color, no rash, warm/dry, well hydrated Lymphatic: normal inspection Medical Decision Making Diagnostic Impression: Primary Impression: Acute deep vein thrombosis Qualified Codes: I82.4Y2 - Acute embolism and thrombosis of unspecified deep veins of left proximal lower extremity ER Course Hospital Course 47-year-old male presents ED with left leg pain and swelling. Differential diagnoses include: DVT, cellulitis, contusion, abscess Clinical course Patient placed on stretcher after initial history and physical I ordered labs, pain medication and DVT ultrasound. Labs reviewed-noted leukocytosis, hb/hct stable, electrolytes ok, INR 1.2 Ultrasound shows acute dvt in proximal segments of posterior tibial veins Patient currently on Xarelto. Not short of breath. We will withhold heparin or Lovenox at this time. Dr. Soriano consulted. patient will be admitted to Dr Joo Fierro. I feel this is a highly complex case requiring extensive working including EKG/Rhythm strip, Xray/CT/US, Blood/urine lab work, repeat exams while in ED, and administration of strong opiates/narcotics for pain control, admission to hospital or close patient follow up. Diagnosis - DVT admitted to floor in serious condition Labs Test 03/29/18 11:50 White Blood Count 7.6 K/UL (4.8-10.8) Red Blood Count 5.23 M/UL (4.70-6.10) Hemoglobin 13.9 G/DL (14.2-18.0) Hematocrit 42.9 % (42.0-52.0) Mean Corpuscular Volume 82 FL (80-99) Mean Corpuscular Hemoglobin 26.6 PG (27.0-31.0) Mean Corpuscular Hemoglobin Concent 32.5 G/DL (32.0-36.0) Red Cell Distribution Width 12.6 % (11.6-14.8) Platelet Count 225 K/UL (150-450) Mean Platelet Volume 7.4 FL (6.5-10.1) Neutrophils (%) (Auto) 82.3 % (45.0-75.0) Lymphocytes (%) (Auto) 11.1 % (20.0-45.0) Monocytes (%) (Auto) 5.0 % (1.0-10.0) Eosinophils (%) (Auto) 1.1 % (0.0-3.0) Basophils (%) (Auto) 0.5 % (0.0-2.0) Prothrombin Time 12.7 SEC (9.30-11.50) Prothromb Time International Ratio 1.2 (0.9-1.1) Activated Partial Thromboplast Time 36 SEC (23-33) Sodium Level 139 MMOL/L (136-145) Potassium Level 3.7 MMOL/L (3.5-5.1) Chloride Level 102 MMOL/L (98-107) Carbon Dioxide Level 29 MMOL/L (21-32) Anion Gap 8 mmol/L (5-15) Blood Urea Nitrogen 10 mg/dL (7-18) Creatinine 1.2 MG/DL (0.55-1.30) Estimat Glomerular Filtration Rate > 60 mL/min (>60) Glucose Level 60 MG/DL (74-106) Calcium Level 8.9 MG/DL (8.5-10.1) Total Bilirubin 0.3 MG/DL (0.2-1.0) Aspartate Amino Transf (AST/SGOT) 10 U/L (15-37) Alanine Aminotransferase (ALT/SGPT) 19 U/L (12-78) Alkaline Phosphatase 99 U/L (46-116) Total Protein 8.7 G/DL (6.4-8.2) Albumin 3.6 G/DL (3.4-5.0) Globulin 5.1 g/dL Albumin/Globulin Ratio 0.7 (1.0-2.7) CT/MRI/US Diagnostic Results CT/MRI/US Diagnostic Results : Imaging Test Ordered: Doppler US Impression subacute to acute DVT in proximal segments of posterior tibial veins Last Vital Signs Date Time Temp Pulse Resp B/P (MAP) Pulse Ox O2 Delivery O2 Flow Rate FiO2 03/29/18 10:39 98.1 18 146/87 99 Room Air 98.1 03/29/18 10:31 89 Status: improved Disposition: ADMITTED INPATIENT Condition: Serious Referrals: NOT CHOSEN IPA/,REFERRING (PCP) Pedro Zarate MD Mar 29, 2018 11:32
[2018-03-29 12:00] VITALS: BP 149/89
[2018-03-29 12:12] LABS: BASOPHILS % (AUTO) 0.5 % (0.0-2.0); EOSINOPHILS % (AUTO) 1.1 % (0.0-3.0); HEMATOCRIT 42.9 % (42.0-52.0); HEMOGLOBIN 13.9 G/DL (14.2-18.0); LYMPHOCYTES % (AUTO) 11.1 % (20.0-45.0); MEAN CORPUSCULAR VOLUME 82 FL (80-99); NEUTROPHILS % (AUTO) 82.3 % (45.0-75.0); PLATELET COUNT 225 K/UL (150-450); RED BLOOD COUNT 5.23 M/UL (4.70-6.10); RED CELL DISTRIBUTION WIDTH 12.6 % (11.6-14.8); WHITE BLOOD COUNT 7.6 K/UL (4.8-10.8)
[2018-03-29 12:19] LABS: ANION GAP 8 mmol/L (5-15); BLOOD UREA NITROGEN 10 mg/dL (7-18); CALCIUM 8.9 MG/DL (8.5-10.1); CARBON DIOXIDE 29 MMOL/L (21-32); CHLORIDE 102 MMOL/L (98-107); CREATININE 1.2 MG/DL (0.55-1.30); POTASSIUM 3.7 MMOL/L (3.5-5.1); SODIUM 139 MMOL/L (136-145)
[2018-03-29 12:22] LABS: INR 1.2 (0.9-1.1)
[2018-03-29 12:30] LABS: ALANINE AMINOTRANSFERASE 19 U/L (12-78); ALBUMIN 3.6 G/DL (3.4-5.0); ALBUMIN/GLOBULIN RATIO 0.7 (1.0-2.7); ALKALINE PHOSPHATASE 99 U/L (46-116); ASPARTATE AMINO TRANSFERASE 10 U/L (15-37); BILIRUBIN,TOTAL 0.3 MG/DL (0.2-1.0)
[2018-03-29] MEDS ORDERED: Mylanta II UD 30ml ORAL PRN (15:00)
[2018-03-29] MEDS ORDERED: Morphine Sulfate 2mg/ml Inj IVP PRN (15:00)
[2018-03-29] MEDS ORDERED: LORazepam Inj 2mg/ml 1ml IV PRN (15:00)
[2018-03-29] MEDS ORDERED: Lactulose 20gm/30ml UDC ORAL PRN (15:15)
[2018-03-29 16:00] VITALS: BP 116/75
[2018-03-29 20:00] VITALS: BP 124/84
[2018-03-29] MEDS ORDERED: Zolpidem 5mg tab ORAL PRN (21:00)
[2018-03-29] MEDS ORDERED: Miralax 17gm pkt ORAL PRN (21:00)
--- NOTE | 2018-03-29 22:01 | History and Physical Report ---
DATE OF ADMISSION: 03/29/2018 TIME: At 3 p.m. CONSULTANTS: 1. Cecil Salguero M.D. 2. Mitchell Soriano M.D. CHIEF COMPLAINT: Left leg swelling, pain, DVT. BRIEF HISTORY: This is a 47-year-old male, who lives at home, presents with increased leg pain since last night and also swelling. The patient noticed this morning that it is getting worse, came to [place], diagnosed with left lower extremity DVT and being admitted to medical floor for further treatment. Currently, calm in bed. No complaint. No chest pain. No shortness of breath. No nausea, vomiting, or diarrhea. Last episode similar was about a month ago where he was started treatment and was taking Xarelto. PAST MEDICAL HISTORY: DVT one month ago. PAST SURGICAL HISTORY: None. MEDICATIONS: I will obtain list shortly. ALLERGIES: Penicillin. SOCIAL HISTORY: No smoking. Positive alcohol. No intravenous drug abuse. FAMILY HISTORY: Noncontributory. PHYSICAL EXAMINATION: GENERAL: Calm in bed, oriented x3, in no acute distress. VITAL SIGNS: Temperature is 98 degrees, pulse 93, respiratory rate 22, and blood pressure 139/88. CARDIOVASCULAR: No murmur. LUNGS: Distant and clear. ABDOMEN: Bowel sounds positive. Nontender. Nondistended. EXTREMITIES: No cyanosis, clubbing, or edema. There is minimal swelling of the left calf, slightly tender. No warmth noted. NEUROLOGIC: The patient moves all extremities, slightly weak. LABORATORY DATA: Labs at this time show CBC is normal. BMP show glucose 60, AST 10, otherwise normal. INR is 1.2 and PTT 36. ASSESSMENT: History of DVT. PLAN: 1. Continue premedications. 2. Anticoagulate. 3. IV fluids. 4. Dietary. 5. Resume home medications. 6. Dr. Salguero and Dr. Soriano to consult. 7. We will continue to follow this patient. Jarret Ge D.O. DR: SLY JOB#: [id number] CC:
--- NOTE | 2018-03-29 22:10 | Consultation ---
History of Present Illness General Date patient seen: Mar 29, 2018 Chief Complaint: Pain Present Illness HPI 47-year-old male presents ED complaining of left leg pain. Started one day ago. Notes history of DVT in that leg. Is currently on Xarelto. States he is compliant with the medication. Pain is 6 out of 10, cramping, nonradiating. Denies any recent injury. No other aggravating relieving factors. Denies any other associated symptoms Allergies: Coded Allergies: PENICILLINS (Verified Allergy, Unknown, 02/03/18) Medication History Scheduled Cholecalciferol (Vitamin D3)* (Vitamin D*), 2,000 UNITS ORAL DAILY, (Reported) Cyclobenzaprine Hcl* (Flexeril*), 10 MG ORAL THREE TIMES A DAY, (Reported) Enoxaparin Sodium (Lovenox), 120 MG SUBQ DAILY, (Reported) Naproxen* (Naproxen*), 500 MG ORAL TWICE A DAY, (Reported) Rivaroxaban (Xarelto*), 15 MG ORAL BID, (Reported) Warfarin Sod* (Warfarin Sod*), 5 MG ORAL DAILY, (Reported) Scheduled PRN Acetaminophen* (Tylenol Extra Strength*), 500 MG ORAL Q8H PRN for Prn Headache/ Temp > 101, (Reported) Methocarbamol* (Methocarbamol*), 500 MG ORAL BID PRN for For Pain, (Reported) Miscellaneous Medications Lactulose (Lactulose*), 30 ML ORAL, (Reported) Discontinued Medications Rivaroxaban (Xarelto*), 20 MG ORAL DAILY, (Reported) Discontinued Reason: discontinued med Patient History Healthcare decision maker Resuscitation status Full Code Advanced Directive on File Review of Systems All Other Systems: negative except mentioned in HPI Physical Exam General Appearance: WD/WN Lines, tubes and drains: peripheral HEENT: normocephalic Neck: non-tender, normal alignment Breasts: no masses Cardiovascular/Chest: normal peripheral pulses Abdomen: non tender, soft Last 24 Hour Vital Signs Date Time Temp Pulse Resp B/P (MAP) Pulse Ox O2 Delivery O2 Flow Rate FiO2 03/29/18 20:00 99.0 83 19 124/84 99 Room Air 99.0 03/29/18 16:00 99.3 85 22 116/75 97 Room Air 99.3 03/29/18 13:44 92 22 139/88 100 Room Air 03/29/18 12:00 94 16 149/89 99 Room Air 03/29/18 10:39 98.1 18 146/87 99 Room Air 98.1 03/29/18 10:31 98.1 89 18 146/87 99 Room Air 98.1 Laboratory Tests Test 03/29/18 11:50 White Blood Count 7.6 K/UL (4.8-10.8) Red Blood Count 5.23 M/UL (4.70-6.10) Hemoglobin 13.9 G/DL (14.2-18.0) L Hematocrit 42.9 % (42.0-52.0) Mean Corpuscular Volume 82 FL (80-99) Mean Corpuscular Hemoglobin 26.6 PG (27.0-31.0) L Mean Corpuscular Hemoglobin Concent 32.5 G/DL (32.0-36.0) Red Cell Distribution Width 12.6 % (11.6-14.8) Platelet Count 225 K/UL (150-450) Mean Platelet Volume 7.4 FL (6.5-10.1) Neutrophils (%) (Auto) 82.3 % (45.0-75.0) H Lymphocytes (%) (Auto) 11.1 % (20.0-45.0) L Monocytes (%) (Auto) 5.0 % (1.0-10.0) Eosinophils (%) (Auto) 1.1 % (0.0-3.0) Basophils (%) (Auto) 0.5 % (0.0-2.0) Prothrombin Time 12.7 SEC (9.30-11.50) H Prothromb Time International Ratio 1.2 (0.9-1.1) H Activated Partial Thromboplast Time 36 SEC (23-33) H Sodium Level 139 MMOL/L (136-145) Potassium Level 3.7 MMOL/L (3.5-5.1) Chloride Level 102 MMOL/L (98-107) Carbon Dioxide Level 29 MMOL/L (21-32) Anion Gap 8 mmol/L (5-15) Blood Urea Nitrogen 10 mg/dL (7-18) Creatinine 1.2 MG/DL (0.55-1.30) Estimat Glomerular Filtration Rate > 60 mL/min (>60) Glucose Level 60 MG/DL (74-106) L Calcium Level 8.9 MG/DL (8.5-10.1) Total Bilirubin 0.3 MG/DL (0.2-1.0) Aspartate Amino Transf (AST/SGOT) 10 U/L (15-37) L Alanine Aminotransferase (ALT/SGPT) 19 U/L (12-78) Alkaline Phosphatase 99 U/L (46-116) Total Protein 8.7 G/DL (6.4-8.2) H Albumin 3.6 G/DL (3.4-5.0) Globulin 5.1 g/dL Albumin/Globulin Ratio 0.7 (1.0-2.7) L Height (Feet): 5 Height (Inches): 7.00 Weight (Pounds): 170 Medications Current Medications Medications (Trade) Dose Ordered Sig/Mickie Route PRN Reason Start Time Stop Time Status Last Admin Dose Admin Acetaminophen (Tylenol) 650 mg Q4H PRN ORAL fever 03/29/18 15:00 04/28/18 14:59 Al Hydroxide/Mg Hydroxide (Mylanta II) 30 ml Q6H PRN ORAL dyspepsia 03/29/18 15:00 04/28/18 14:59 Dextrose (Dextrose 50%) STAT PRN IV Hypoglycemia 03/29/18 15:00 04/28/18 14:59 Lactulose (Cephulac) 20 gm DAILY PRN ORAL Constipation 03/29/18 15:15 04/28/18 15:14 Lorazepam (Ativan 2mg/ml 1ml) 0.5 mg Q4H PRN IV For Anxiety 03/29/18 15:00 04/05/18 14:59 Morphine Sulfate (Morphine Sulfate) 1 mg Q4H PRN IVP For Pain 03/29/18 15:00 04/05/18 14:59 Ondansetron HCl (Zofran) 4 mg Q6H PRN IVP Nausea & Vomiting 03/29/18 15:00 04/28/18 14:59 Polyethylene Glycol (Miralax) 17 gm HSPRN PRN ORAL Constipation 03/29/18 21:00 04/28/18 20:59 Rivaroxaban (Xarelto) 20 mg DAILY ORAL 03/30/18 09:00 04/29/18 08:59 Zolpidem Tartrate (Ambien) 5 mg HSPRN PRN ORAL Insomnia 03/29/18 21:00 04/05/18 20:59 Assessment/Plan Problem List: (1) Acute deep vein thrombosis ICD Codes: I82.409 - Acute embolism and thrombosis of unspecified deep veins of unspecified lower extremity SNOMED: 409171491397147 Qualifiers: Qualified Codes: I82.4Y2 - Acute embolism and thrombosis of unspecified deep veins of left proximal lower extremity Assessment/Plan anticoagulants symptomatic treatment hematology evaluation Cecil Salguero MD Mar 29, 2018 22:10
[2018-03-30 00:17] VITALS: BP 120/80
[2018-03-30 04:00] VITALS: BP 128/81
[2018-03-30 07:21] LABS: BASOPHILS % (AUTO) 0.5 % (0.0-2.0); EOSINOPHILS % (AUTO) 2.3 % (0.0-3.0); HEMATOCRIT 38.2 % (42.0-52.0); HEMOGLOBIN 13.2 G/DL (14.2-18.0); LYMPHOCYTES % (AUTO) 15.9 % (20.0-45.0); MEAN CORPUSCULAR VOLUME 83 FL (80-99); MONOCYTES % (AUTO) 7.3 % (1.0-10.0); NEUTROPHILS % (AUTO) 73.9 % (45.0-75.0); PLATELET COUNT 198 K/UL (150-450); RED BLOOD COUNT 4.63 M/UL (4.70-6.10); RED CELL DISTRIBUTION WIDTH 12.8 % (11.6-14.8); WHITE BLOOD COUNT 5.3 K/UL (4.8-10.8)
[2018-03-30 07:31] LABS: ALANINE AMINOTRANSFERASE 17 U/L (12-78); ALBUMIN 3.1 G/DL (3.4-5.0); ALBUMIN/GLOBULIN RATIO 0.7 (1.0-2.7); ALKALINE PHOSPHATASE 83 U/L (46-116); ANION GAP 3 mmol/L (5-15); ASPARTATE AMINO TRANSFERASE 12 U/L (15-37); BILIRUBIN,TOTAL 0.3 MG/DL (0.2-1.0); BLOOD UREA NITROGEN 8 mg/dL (7-18); CALCIUM 8.9 MG/DL (8.5-10.1); CARBON DIOXIDE 30 MMOL/L (21-32); CHLORIDE 104 MMOL/L (98-107); CHOLESTEROL 174 MG/DL (< 200); CREATININE 1.2 MG/DL (0.55-1.30); HDL CHOLESTEROL 39 MG/DL (40-60); POTASSIUM 4.2 MMOL/L (3.5-5.1); SODIUM 137 MMOL/L (136-145); TRIGLYCERIDES 87 MG/DL (30-150)
[2018-03-30 08:00] VITALS: BP 131/63
[2018-03-30] MEDS: Xarelto 10mg tab ORAL SCH (08:15)
--- NOTE | 2018-03-30 08:52 | General Progress Note ---
Assessment/Plan Problem List: (1) Injury of lower extremity ICD Codes: S89.90XA - Unspecified injury of unspecified lower leg, initial encounter SNOMED: 021701034 (2) Acute deep vein thrombosis ICD Codes: I82.409 - Acute embolism and thrombosis of unspecified deep veins of unspecified lower extremity SNOMED: 615521172163963 Qualifiers: Qualified Codes: I82.4Y2 - Acute embolism and thrombosis of unspecified deep veins of left proximal lower extremity Status: unchanged Assessment/Plan anticoag pain control cbc bmp am Subjective Constitutional: Reports: weakness Allergies: Coded Allergies: PENICILLINS (Verified Allergy, Unknown, 02/03/18) All Systems: reviewed and negative except above Subjective calm in bed Objective Last 24 Hour Vital Signs Date Time Temp Pulse Resp B/P (MAP) Pulse Ox O2 Delivery O2 Flow Rate FiO2 03/30/18 08:00 98.2 78 20 131/63 99 Room Air 98.2 03/30/18 04:00 98.6 75 19 128/81 99 Room Air 98.6 03/30/18 00:17 98.9 82 19 120/80 99 Room Air 98.9 03/29/18 20:00 99.0 83 19 124/84 99 Room Air 99.0 03/29/18 16:00 99.3 85 22 116/75 97 Room Air 99.3 03/29/18 13:44 92 22 139/88 100 Room Air 03/29/18 12:00 94 16 149/89 99 Room Air 03/29/18 10:39 98.1 18 146/87 99 Room Air 98.1 03/29/18 10:31 98.1 89 18 146/87 99 Room Air 98.1 Intake and Output 03/29/18 03/30/18 19:00 07:00 Intake Total 480 ml 450 ml Balance 480 ml 450 ml Intake Oral 480 ml 450 ml # Voids 2 Laboratory Tests 03/29/18 11:50: White Blood Count 7.6, Red Blood Count 5.23, Hemoglobin 13.9L, Hematocrit 42.9, Mean Corpuscular Volume 82, Mean Corpuscular Hemoglobin 26.6L, Mean Corpuscular Hemoglobin Concent 32.5, Red Cell Distribution Width 12.6, Platelet Count 225, Mean Platelet Volume 7.4, Neutrophils (%) (Auto) 82.3H, Lymphocytes (%) (Auto) 11.1L, Monocytes (%) (Auto) 5.0, Eosinophils (%) (Auto) 1.1, Basophils (%) (Auto ) 0.5, Prothrombin Time 12.7H, Prothromb Time International Ratio 1.2H, Activated Partial Thromboplast Time 36H, Sodium Level 139, Potassium Level 3.7, Chloride Level 102, Carbon Dioxide Level 29, Anion Gap 8, Blood Urea Nitrogen 10 , Creatinine 1.2, Estimat Glomerular Filtration Rate > 60, Glucose Level 60L, Calcium Level 8.9, Total Bilirubin 0.3, Aspartate Amino Transf (AST/SGOT) 10L, Alanine Aminotransferase (ALT/SGPT) 19, Alkaline Phosphatase 99, Total Protein 8.7H, Albumin 3.6, Globulin 5.1, Albumin/Globulin Ratio 0.7L 03/30/18 05:45: White Blood Count 5.3, Red Blood Count 4.63L, Hemoglobin 13.2L, Hematocrit 38.2L , Mean Corpuscular Volume 83, Mean Corpuscular Hemoglobin 28.5, Mean Corpuscular Hemoglobin Concent 34.6, Red Cell Distribution Width 12.8, Platelet Count 198, Mean Platelet Volume 7.7, Neutrophils (%) (Auto) 73.9, Lymphocytes (% ) (Auto) 15.9L, Monocytes (%) (Auto) 7.3, Eosinophils (%) (Auto) 2.3, Basophils (%) (Auto) 0.5, Sodium Level 137, Potassium Level 4.2, Chloride Level 104, Carbon Dioxide Level 30, Anion Gap 3L, Blood Urea Nitrogen 8, Creatinine 1.2, Estimat Glomerular Filtration Rate > 60, Glucose Level 101, Calcium Level 8.9, Total Bilirubin 0.3, Aspartate Amino Transf (AST/SGOT) 12L, Alanine Aminotransferase (ALT/SGPT) 17, Alkaline Phosphatase 83, Total Protein 7.8, Albumin 3.1L, Globulin 4.7, Albumin/Globulin Ratio 0.7L, Triglycerides Level 87 , Cholesterol Level 174, LDL Cholesterol 128H, HDL Cholesterol 39L, Cholesterol/ HDL Ratio 4.5H, Thyroid Stimulating Hormone (TSH) 0.759 Height (Feet): 5 Height (Inches): 7.00 Weight (Pounds): 170 General Appearance: alert EENT: normal ENT inspection Neck: normal alignment Cardiovascular: normal peripheral pulses, normal rate, regular rhythm Respiratory/Chest: chest wall non-tender, lungs clear, normal breath sounds Abdomen: normal bowel sounds, non tender, soft Extremities: normal inspection Edema: no edema noted Arm (L), no edema noted Arm (R), no edema noted Leg (L), no edema noted Leg (R), no edema noted Pedal (L), no edema noted Pedal (R), no edema noted Generalized Neurologic: responsive, motor weakness Skin: normal pigmentation, warm/dry Jarret Ge DO Mar 30, 2018 08:52
[2018-03-30 12:00] VITALS: BP 118/67
[2018-03-30 16:00] VITALS: BP 121/89
[2018-03-30 20:00] VITALS: BP 119/74
[2018-03-31] VITALS: BP 121/87
--- NOTE | 2018-03-31 01:45 | Consultation ---
DATE OF CONSULTATION: 03/30/2018 NOTE: POOR AUDIO HEMATOLOGY/ONCOLOGY CONSULTATION CONSULTING PHYSICIAN: Mitchell Soriano M.D. REQUESTING PHYSICIAN: Jarret Ge D.O. REASON FOR CONSULTATION: Evaluation of deep vein thrombosis. IDENTIFYING DATA: Dear Dr. Jarret Ge, The patient is a pleasant 47-year-old male who presents left lower extremity DVT. Hematology Service was consulted. The patient required anticoagulation, recently was diagnosed with DVT currently continues to be on Xarelto 20 mg daily. Imaging has been reviewed, compared to prior scan, the report at this time is available. The patient has acute thrombus and left calf pain. Imaging within normal limits. The patient has some proximal posterior tibial vein DVT. Prior imaging reviewed from 02/03/2018 and . The patient continue to tolerate well. PAST MEDICAL HISTORY: DVT history one month ago. PAST SURGICAL HISTORY: None noted. MEDICATIONS: . ALLERGIES: Penicillin. SOCIAL HISTORY: No alcohol or tobacco use at this time. Does have history of alcohol before. FAMILY HISTORY: Noncontributory. REVIEW OF SYSTEMS: Otherwise negative. PHYSICAL EXAMINATION: VITAL SIGNS: Reviewed. GENERAL: No distress. LUNGS: Decreased breath sounds. CARDIOVASCULAR: Regular rate. No S3 or S4. ABDOMEN: Soft. Nontender. Nondistended. EXTREMITIES: A 1+ edema. LABORATORY AND DIAGNOSTIC DATA: Reviewed. , hemoglobin 13.3, and platelet count 198,000. INR 1.2. BUN 58 and creatinine 1.2. ASSESSMENT AND RECOMMENDATIONS: 1. Deep vein thrombosis of the left lower extremity, potentially secondary to either poor compliance and/or the patient has not been consistent with the use of anticoagulants. At this time, continue Xarelto . Obtain patient's has been reviewed. Antithrombin III normal, protein C and protein S normal, prothrombin gene mutation normal, anticardiolipin IgM is negative. . 2. Anemia due to underlying of chronic disease. Continue to closely monitor. 3. Left lower extremity pain due to deep vein thrombosis, on anticoagulation. I appreciate the consultation. Mitchell Soriano M.D. DR: NIKA JOB#: [id number] CC:
[2018-03-31 04:00] VITALS: BP 124/88
[2018-03-31 07:10] LABS: BASOPHILS % (AUTO) 0.8 % (0.0-2.0); EOSINOPHILS % (AUTO) 4.2 % (0.0-3.0); HEMATOCRIT 39.7 % (42.0-52.0); HEMOGLOBIN 13.2 G/DL (14.2-18.0); LYMPHOCYTES % (AUTO) 22.3 % (20.0-45.0); MEAN CORPUSCULAR VOLUME 83 FL (80-99); MONOCYTES % (AUTO) 6.2 % (1.0-10.0); NEUTROPHILS % (AUTO) 66.5 % (45.0-75.0); PLATELET COUNT 210 K/UL (150-450); RED BLOOD COUNT 4.79 M/UL (4.70-6.10); RED CELL DISTRIBUTION WIDTH 12.7 % (11.6-14.8); WHITE BLOOD COUNT 4.2 K/UL (4.8-10.8)
[2018-03-31 07:18] LABS: ANION GAP 5 mmol/L (5-15); BLOOD UREA NITROGEN 10 mg/dL (7-18); CALCIUM 9.1 MG/DL (8.5-10.1); CARBON DIOXIDE 29 MMOL/L (21-32); CHLORIDE 104 MMOL/L (98-107); CREATININE 1.2 MG/DL (0.55-1.30); POTASSIUM 3.6 MMOL/L (3.5-5.1); SODIUM 138 MMOL/L (136-145)
[2018-03-31 08:00] VITALS: BP 135/83
[2018-03-31] MEDS: Xarelto 10mg tab ORAL SCH (08:59)
--- NOTE | 2018-03-31 09:02 | General Progress Note ---
Assessment/Plan Problem List: (1) Injury of lower extremity ICD Codes: S89.90XA - Unspecified injury of unspecified lower leg, initial encounter SNOMED: [id number] (2) Acute deep vein thrombosis ICD Codes: I82.409 - Acute embolism and thrombosis of unspecified deep veins of unspecified lower extremity SNOMED: 373426147090978 Qualifiers: Qualified Codes: I82.4Y2 - Acute embolism and thrombosis of unspecified deep veins of left proximal lower extremity Status: stable, progressing, tolerating diet Assessment/Plan anticoag pain control dc plan if clear Subjective Allergies: Coded Allergies: PENICILLINS (Verified Allergy, Unknown, 02/03/18) All Systems: reviewed and negative except above Subjective calm in bed Objective Last 24 Hour Vital Signs Date Time Temp Pulse Resp B/P (MAP) Pulse Ox O2 Delivery O2 Flow Rate FiO2 03/31/18 04:00 98.2 78 20 124/88 99 Room Air 98.2 03/31/18 00:00 97.7 77 20 121/87 100 Room Air 97.7 03/30/18 20:00 98.8 76 20 119/74 99 Room Air 98.8 03/30/18 16:00 98.0 79 20 121/89 100 Room Air 98.0 03/30/18 12:00 98.5 78 20 118/67 100 Room Air 98.5 Intake and Output 03/30/18 03/31/18 19:00 07:00 Intake Total 600 ml 760 ml Balance 600 ml 760 ml Intake Oral 600 ml 760 ml # Voids 3 Laboratory Tests 03/31/18 05:30: White Blood Count 4.2L, Red Blood Count 4.79, Hemoglobin 13.2L, Hematocrit 39.7L , Mean Corpuscular Volume 83, Mean Corpuscular Hemoglobin 27.5, Mean Corpuscular Hemoglobin Concent 33.2, Red Cell Distribution Width 12.7, Platelet Count 210, Mean Platelet Volume 7.8, Neutrophils (%) (Auto) 66.5, Lymphocytes (% ) (Auto) 22.3, Monocytes (%) (Auto) 6.2, Eosinophils (%) (Auto) 4.2H, Basophils (%) (Auto) 0.8, Sodium Level 138, Potassium Level 3.6, Chloride Level 104, Carbon Dioxide Level 29, Anion Gap 5, Blood Urea Nitrogen 10, Creatinine 1.2, Estimat Glomerular Filtration Rate > 60, Glucose Level 112H, Calcium Level 9.1 Height (Feet): 5 Height (Inches): 7.00 Weight (Pounds): 170 General Appearance: lethargic EENT: normal ENT inspection Neck: normal alignment Cardiovascular: normal peripheral pulses, normal rate, regular rhythm Respiratory/Chest: chest wall non-tender, lungs clear, normal breath sounds Abdomen: normal bowel sounds, non tender, soft Extremities: normal inspection Edema: no edema noted Arm (L), no edema noted Arm (R), no edema noted Leg (L), no edema noted Leg (R), no edema noted Pedal (L), no edema noted Pedal (R), no edema noted Generalized Neurologic: responsive, motor weakness Skin: normal pigmentation, warm/dry Jarret Ge DO Mar 31, 2018 09:02
--- NOTE | 2018-03-31 09:50 | General Progress Note ---
Assessment/Plan Assessment/Plan ASSESSMENT AND RECOMMENDATIONS: 1. 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 --> coumadin and lovenox as outpatient and prescript inr goal 2-3 2. Anemia due to underlying of chronic disease. Continue to closely monitor. 3. Left lower extremity pain due to deep vein thrombosis, on anticoagulation. 4. DC today Subjective Allergies: Coded Allergies: PENICILLINS (Verified Allergy, Unknown, 02/03/18) All Systems: reviewed and negative except above Subjective no events, no fev, chills Objective Last 24 Hour Vital Signs Date Time Temp Pulse Resp B/P (MAP) Pulse Ox O2 Delivery O2 Flow Rate FiO2 03/31/18 08:00 97.2 74 18 135/83 99 Room Air 97.2 03/31/18 04:00 98.2 78 20 124/88 99 Room Air 98.2 03/31/18 00:00 97.7 77 20 121/87 100 Room Air 97.7 03/30/18 20:00 98.8 76 20 119/74 99 Room Air 98.8 03/30/18 16:00 98.0 79 20 121/89 100 Room Air 98.0 03/30/18 12:00 98.5 78 20 118/67 100 Room Air 98.5 Intake and Output 03/30/18 03/31/18 19:00 07:00 Intake Total 600 ml 760 ml Balance 600 ml 760 ml Intake Oral 600 ml 760 ml # Voids 3 Laboratory Tests 03/31/18 05:30: White Blood Count 4.2L, Red Blood Count 4.79, Hemoglobin 13.2L, Hematocrit 39.7L , Mean Corpuscular Volume 83, Mean Corpuscular Hemoglobin 27.5, Mean Corpuscular Hemoglobin Concent 33.2, Red Cell Distribution Width 12.7, Platelet Count 210, Mean Platelet Volume 7.8, Neutrophils (%) (Auto) 66.5, Lymphocytes (% ) (Auto) 22.3, Monocytes (%) (Auto) 6.2, Eosinophils (%) (Auto) 4.2H, Basophils (%) (Auto) 0.8, Sodium Level 138, Potassium Level 3.6, Chloride Level 104, Carbon Dioxide Level 29, Anion Gap 5, Blood Urea Nitrogen 10, Creatinine 1.2, Estimat Glomerular Filtration Rate > 60, Glucose Level 112H, Calcium Level 9.1 Height (Feet): 5 Height (Inches): 7.00 Weight (Pounds): 170 General Appearance: no apparent distress EENT: TMs normal Neck: supple Cardiovascular: regular rhythm Respiratory/Chest: normal breath sounds Abdomen: soft Extremities: non-tender Edema: 1+ Leg (L), 1+ Leg (R) Edema: mild edema Neurologic: alert Skin: warm/dry Mitchell Soriano MD Mar 31, 2018 09:50
[2018-03-31 11:04] LABS: INR 1.1 (0.9-1.1)
[2018-03-31] MEDS: Enoxaparin 120 mg inj SUBQ SCH (11:28)
[2018-03-31 12:00] VITALS: BP 131/72
[2018-03-31 16:00] VITALS: BP 135/84
[2018-03-31] MEDS ORDERED: Warfarin Sodium 5mg ORAL SCH (17:00)
[2018-03-31 20:00] VITALS: BP 119/89
[2018-04-01] VITALS: BP 135/77
[2018-04-01 04:00] VITALS: BP 132/78
[2018-04-01 08:00] VITALS: BP 122/84
[2018-04-01] MEDS ORDERED: Isovue-300 100ml vial INJ PRN ×2 (08:45)
[2018-04-01] MEDS: Enoxaparin 120 mg inj SUBQ SCH (09:44)
--- NOTE | 2018-04-01 10:06 | Diagnostic Imaging Report ---
APPROVED REPORT CPT Code: 26226 Past History DVT :Left LEFT LEG: Venous imaging reveals acute thrombus in the calf vein (proximal posterior tibial). Imaging also reveals patency of the common femoral, popliteal and calf veins (anterior tibial and peroneal). The greater saphenous vein is also within normal limits. Dr. Zarate was notified of abnormal results at 1200 hours.
--- NOTE | 2018-04-01 10:06 | Diagnostic Imaging Report ---
APPROVED REPORT CPT Code: 45081 Present Symptoms Comments: R/O DVT Past History DVT :Left LEFT LEG: Venous imaging reveals a patent deep venous system. There is no evidence of thrombus within the femoral, popliteal or tibial segments. The greater saphenous vein is also within normal limits. Doppler indicates normal spontaneous flow within these segments.
--- NOTE | 2018-04-01 11:21 | General Progress Note ---
Assessment/Plan Status: stable Assessment/Plan ASSESSMENT AND RECOMMENDATIONS: 1. 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 --> coumadin and lovenox as outpatient and prescript inr goal 2-3 2. Anemia due to underlying of chronic disease. Continue to closely monitor. 3. Left lower extremity pain due to deep vein thrombosis, on anticoagulation. Subjective Date patient seen: Apr 01, 2018 ROS Limited/Unobtainable: Yes Allergies: Coded Allergies: PENICILLINS (Verified Allergy, Unknown, 02/03/18) All Systems: reviewed and negative except above Subjective No acute events. Pt a/o x4. Vitals are stable. Objective Last 24 Hour Vital Signs Date Time Temp Pulse Resp B/P (MAP) Pulse Ox O2 Delivery O2 Flow Rate FiO2 04/01/18 08:00 99.0 77 20 122/84 99 99.0 04/01/18 04:00 97.3 79 20 132/78 97 Room Air 97.3 04/01/18 00:00 97.5 80 20 135/77 97 Room Air 97.5 03/31/18 20:00 97.2 79 20 119/89 97 Room Air 97.2 03/31/18 16:00 97.3 77 20 135/84 99 Room Air 97.3 03/31/18 12:00 97.3 19 131/72 97 Room Air 97.3 Intake and Output 03/31/18 04/01/18 19:00 07:00 Intake Total 240 ml 730 ml Balance 240 ml 730 ml Intake Oral 240 ml 730 ml # Voids 4 3 Laboratory Tests 04/01/18 06:00: Prothrombin Time 10.4, Prothromb Time International Ratio 1.0, Lactate Dehydrogenase 132, Alpha Fetoprotein [Pending], Carcinoembryonic Antigen [ Pending] Height (Feet): 5 Height (Inches): 7.00 Weight (Pounds): 170 General Appearance: no apparent distress, alert EENT: PERRL/EOMI Neck: normal alignment, supple Cardiovascular: normal rate Respiratory/Chest: normal breath sounds, no respiratory distress Abdomen: normal bowel sounds, soft Kleynberg,Mitchell L. MD Apr 01, 2018 11:21
--- NOTE | 2018-04-01 11:44 | General Progress Note ---
Assessment/Plan Problem List: (1) Injury of lower extremity ICD Codes: S89.90XA - Unspecified injury of unspecified lower leg, initial encounter SNOMED: 452744913 (2) Acute deep vein thrombosis ICD Codes: I82.409 - Acute embolism and thrombosis of unspecified deep veins of unspecified lower extremity SNOMED: 949081215196452 Qualifiers: Qualified Codes: I82.4Y2 - Acute embolism and thrombosis of unspecified deep veins of left proximal lower extremity Status: stable, progressing Assessment/Plan anticoag pain control dc if clear Subjective Constitutional: Reports: weakness Allergies: Coded Allergies: PENICILLINS (Verified Allergy, Unknown, 02/03/18) All Systems: reviewed and negative except above Subjective calm in bed Objective Last 24 Hour Vital Signs Date Time Temp Pulse Resp B/P (MAP) Pulse Ox O2 Delivery O2 Flow Rate FiO2 04/01/18 08:00 99.0 77 20 122/84 99 99.0 04/01/18 04:00 97.3 79 20 132/78 97 Room Air 97.3 04/01/18 00:00 97.5 80 20 135/77 97 Room Air 97.5 03/31/18 20:00 97.2 79 20 119/89 97 Room Air 97.2 03/31/18 16:00 97.3 77 20 135/84 99 Room Air 97.3 03/31/18 12:00 97.3 19 131/72 97 Room Air 97.3 Intake and Output 03/31/18 04/01/18 19:00 07:00 Intake Total 240 ml 730 ml Balance 240 ml 730 ml Intake Oral 240 ml 730 ml # Voids 4 3 Laboratory Tests 04/01/18 06:00: Prothrombin Time 10.4, Prothromb Time International Ratio 1.0, Lactate Dehydrogenase 132, Alpha Fetoprotein [Pending], Carcinoembryonic Antigen [ Pending] Height (Feet): 5 Height (Inches): 7.00 Weight (Pounds): 170 General Appearance: alert EENT: normal ENT inspection Neck: normal alignment Cardiovascular: normal peripheral pulses, normal rate, regular rhythm Respiratory/Chest: chest wall non-tender, lungs clear, normal breath sounds Abdomen: normal bowel sounds, non tender, soft Extremities: normal inspection Edema: no edema noted Arm (L), no edema noted Arm (R), no edema noted Leg (L), no edema noted Leg (R), no edema noted Pedal (L), no edema noted Pedal (R), no edema noted Generalized Neurologic: responsive, motor weakness Skin: normal pigmentation, warm/dry Jarret Ge DO Apr 01, 2018 11:44
[2018-04-01 12:00] VITALS: BP 133/92
[2018-04-01] MEDS ORDERED: WARFARIN SODIUM5 MG ORAL (12:13)
[2018-04-01] MEDS ORDERED: LOVENOX120 MG/0.8 SUBQ (12:14)
--- NOTE | 2018-04-01 13:39 | Pulmonology Progress Note ---
Assessment/Plan Problems: (1) Acute deep vein thrombosis Assessment/Plan f/u hematology recommendations dc planning Subjective ROS Limited/Unobtainable: No Constitutional: Reports: no symptoms HEENT: Repors: no symptoms Respiratory: Reports: no symptoms Allergies: Coded Allergies: PENICILLINS (Verified Allergy, Unknown, 02/03/18) Objective Last 24 Hour Vital Signs Date Time Temp Pulse Resp B/P (MAP) Pulse Ox O2 Delivery O2 Flow Rate FiO2 04/01/18 12:00 97.4 78 20 133/92 97 Room Air 97.4 78 04/01/18 08:00 99.0 77 20 122/84 99 99.0 04/01/18 04:00 97.3 79 20 132/78 97 Room Air 97.3 04/01/18 00:00 97.5 80 20 135/77 97 Room Air 97.5 03/31/18 20:00 97.2 79 20 119/89 97 Room Air 97.2 03/31/18 16:00 97.3 77 20 135/84 99 Room Air 97.3 Intake and Output 03/31/18 04/01/18 19:00 07:00 Intake Total 240 ml 730 ml Balance 240 ml 730 ml Intake Oral 240 ml 730 ml # Voids 4 3 General Appearance: WD/WN HEENT: normocephalic Respiratory/Chest: chest wall non-tender, lungs clear Cardiovascular: normal peripheral pulses, normal rate Abdomen: normal bowel sounds, soft, non tender Extremities: no cyanosis Neurologic/Psychiatric: distribution supervisor II-XII grossly normal Lymphatic: no neck adenopathy Laboratory Tests 04/01/18 06:00: Prothrombin Time 10.4, Prothromb Time International Ratio 1.0, Lactate Dehydrogenase 132, Alpha Fetoprotein [Pending], Carcinoembryonic Antigen [ Pending] Current Medications Medications (Trade) Dose Ordered Sig/Mickie Route PRN Reason Start Time Stop Time Status Last Admin Dose Admin Acetaminophen (Tylenol) 650 mg Q4H PRN ORAL fever 03/29/18 15:00 04/28/18 14:59 Al Hydroxide/Mg Hydroxide (Mylanta II) 30 ml Q6H PRN ORAL dyspepsia 03/29/18 15:00 04/28/18 14:59 Dextrose (Dextrose 50%) STAT PRN IV Hypoglycemia 03/29/18 15:00 04/28/18 14:59 Enoxaparin Sodium (Lovenox) 120 mg DAILY SUBQ 03/31/18 11:00 04/30/18 10:59 04/01/18 09:44 Iopamidol (Isovue-300 100ml) 100 ml NOW PRN INJ Radiology Procedure 04/01/18 08:45 04/03/18 08:35 Lactulose (Cephulac) 20 gm DAILY PRN ORAL Constipation 03/29/18 15:15 04/28/18 15:14 Lorazepam (Ativan 2mg/ml 1ml) 0.5 mg Q4H PRN IV For Anxiety 03/29/18 15:00 04/05/18 14:59 Morphine Sulfate (Morphine Sulfate) 1 mg Q4H PRN IVP For Pain 03/29/18 15:00 04/05/18 14:59 Ondansetron HCl (Zofran) 4 mg Q6H PRN IVP Nausea & Vomiting 03/29/18 15:00 04/28/18 14:59 Polyethylene Glycol (Miralax) 17 gm HSPRN PRN ORAL Constipation 03/29/18 21:00 04/28/18 20:59 Warfarin Sodium (Coumadin per pharmacy) 1 ea DAILY PRN MISC Per rx protocol 03/31/18 12:30 04/30/18 12:29 Warfarin Sodium (Coumadin) 7.5 mg COUMADIN ORAL 04/01/18 17:00 04/01/18 18:01 Zolpidem Tartrate (Ambien) 5 mg HSPRN PRN ORAL Insomnia 03/29/18 21:00 04/05/18 20:59 Cecil Salguero MD Apr 01, 2018 13:39
[2018-04-01 16:00] VITALS: BP 131/74
--- NOTE | 2018-04-01 16:49 | Diagnostic Imaging Report ---
Indication: Chest and abdominal pain Technique: Continuous helical transaxial imaging of the chest, abdomen and pelvis was obtained from the lung bases to the pubic symphysis during intravenous contrast administration. Multiple phases of enhancement obtained. Coronal 2-D reformats were also obtained. Study obtained in a Siemens sensation [address] Automatic Exposure Control was utilized. Total Dose length Product (DLP): [address] Dose Index Volume (CTDIvol): 20.38 mGy Comparison: None Findings: Small patch of the density at the peripheral margin left lower lobe likely atelectasis. Lungs are clear otherwise. No pleural effusion identified. No pneumothorax or abnormal fluid collections or adenopathy identified. Aorta is unremarkable. Heart is unremarkable. Axilla appear clear bilaterally. Calcified granuloma noted within the spleen. Gallbladder, liver, pancreas, adrenal glands, kidneys are unremarkable. The appendix is normal. No free fluid, free air identified. There is no evidence of bowel obstruction. The bladder is mostly nondistended. IMPRESSION: Calcified splenic granuloma. Small patch of atelectasis versus scarring at the left lung base. Normal appendix The CT scanner at [facility] is accredited by the [employer] and the scans are performed using dose optimization techniques as appropriate to a performed exam including Automatic Exposure control.
[2018-04-01] MEDS ORDERED: Warfarin Sodium 7.5mg ORAL SCH (17:00)
--- NOTE | 2018-04-02 13:30 | Discharge Summary ---
Discharge Summary Discharge Summary _ DATE OF ADMISSION: 03/29/2018 DATE OF DISCHARGE: 04/01/2018 REASON FOR ADMISSION: 47 years old male with past medical history of DVT , on Xarelto, presented to emergency room complaining of left low leg pain for one day. Patient reported being compliant with medication. Pain described as cramping,nonradiating, 6 out of 10 on a scale 1-10 Patient denied any recent injury or trauma to the leg. Vital signs were stable. Venous duplex revealed acute thrombosis in the calf vein( proximal posterior tibial) left leg. . Patient admitted for further management with diagnosis of acute DVT left lower extremity CONSULTANTS: pulmonary Dr. Salguero wood setter/oncologist Dr. Soriano [facility] COURSE: Patient admitted to medical surgical floor. Hematology and pulmonology consults were requested. Patient was started on Lovenox and Coumadin to bridge INR to therapeutic window. Director Of Teenage Activities closely followed. Per wood setter, DVT potentially secondary to either poor compliance versus the fact that he drives long distances. Hypercoagulability profile revealed normal antithrombin III ,protein C and protein S normal ,prothrombin gene mutation normal, anticardiolipin IgM negative. INR still subtherapeutic. Director Of Teenage Activities recommended continue Coumadin and Lovenox as outpatient to reach therapeutic INR. Patient with mild anemia likely due to underlying chronic disease. Counts were closely monitored with goal to keep hemoglobin above 7. Prior to discharge hemoglobin 13.2 hematocrit 39.7. Pain management provided. Supplemental oxygen provided as needed to keep pulse oximetry above 92% . Pulse oximetry stable on room air. CT of the chest, abdomen, and pelvis was essentially unremarkable except noted calcified splenic granuloma. Patient was clinically improving. pain controlled. No shortness of breath. Patient was stable for discharge home. Continue Lovenox and Coumadin to bridge IN to therapeutic window 2-3 . Follow-up with the primary care provider/wood setter in few days . FINAL DIAGNOSES: Acute deep vein thrombosis of the lower lower extremity Anemia of underlying chronic disease Left lower extremity pain, secondary to acute DVT DISCHARGE MEDICATIONS: See Medication Reconciliation list. DISCHARGE INSTRUCTIONS: Patient was discharged home onLvenox and Coumadin. Follow-up with the primary care provider/wood setter in few days . I have been assigned to dictate discharge summary for this account. I was not involved in the patient's management. Jeannette Jones NP Apr 02, 2018 13:30
== END 2018-04-01 18:50 | disposition home or self-care (01) | DRG 197 ==
LOC: EMR 11:11 → 4E 11:46 → EDBEDREQ 12:48
DX: I82.442 Acute embolism and thrombosis of left tibial vein (principal); D63.8 Anemia in other chronic diseases classified elsewhere; Z88.0 Allergy status to penicillin; Z79.01 Long term (current) use of anticoagulants; M79.662 Pain in left lower leg
CPT/HCPCS: 36415; 71260; 74177; 80048; 80053; 80061; 82105; 82378; 83615; 84443; 85025; 85610; 85730; 93971; 99285

== ENCOUNTER 2018-09-21 12:08 | Emergency (ER) | payer MEDICAID ==
[~2018-09-21] VITALS: Ht 170.2 cm; Wt 77.1 kg
[~2018-09-21 12:08] MED LIST changes: +LACTULOSE20 GM/301 ORAL; +LOVENOX120 MG/0.8 SUBQ; +VITAMIN D1000 UNI1 ORAL; +WARFARIN SODIUM5 MG ORAL
[2018-09-21] MEDS ORDERED: ROBAXIN-750750 MG PO (12:33)
[2018-09-21] MEDS ORDERED: TYLENOL EXTRA500 MG ORAL (12:33)
[2018-09-21 12:43] VITALS: BP 148/85
--- NOTE | 2018-09-21 17:43 | Emergency Room Report ---
History of Present Illness General Chief Complaint: Neck Pain Source: Patient Present Illness HPI Patient is a 47-year-old male presenting for left sided neck pain which began 2 days prior after sleeping. He states that pain has gradually become worse and is now a 9 out of 10 dull ache. Pain radiates from the left neck to the left shoulder. Worse with arm and neck movements. He denies any injury to the area. He has not tried any pain medications for this yet. He denies any other symptoms including nausea, vomiting, fever, chills, photophobia, rash, SOB, CP He denies recent travel Allergies: Coded Allergies: PENICILLINS (Verified Allergy, Unknown, 09/21/18) Patient History Past Medical History: see triage record Pertinent Family History: none Reviewed Nursing Documentation: PMH: Agreed; PSxH: Agreed Nursing Documentation-PM Past Medical History: No Stated History Hx Cardiac Problems: No Hx Cancer: No Hx Gastrointestinal Problems: No Hx Neurological Problems: No Review of Systems All Other Systems: negative except mentioned in HPI Physical Exam Vital Signs Date Time Temp Pulse Resp B/P (MAP) Pulse Ox O2 Delivery O2 Flow Rate FiO2 09/21/18 12:14 98.1 91 18 152/96 96 Room Air Sp02 EP Interpretation: reviewed, normal General Appearance: no apparent distress, alert, GCS 15, non-toxic Head: normocephalic, atraumatic ENT: hearing grossly normal, normal pharynx, no angioedema, normal voice Neck: full range of motion, no meningismus, no bony tend, tender - L trapezius Respiratory: chest non-tender, lungs clear, normal breath sounds, speaking full sentences Cardiovascular #1: regular rate, rhythm, no edema Musculoskeletal: normal inspection, normal range of motion, tender - TTP over the L trapezius Neurologic: alert, oriented x3, responsive, motor strength/tone normal, sensory intact, speech normal Psychiatric: judgement/insight normal, memory normal, mood/affect normal, no suicidal/homicidal ideation Skin: normal color, no rash, warm/dry, well hydrated Medical Decision Making PA Attestation Dr. Dockery is my supervising physician. Patient management was discussed with my supervising physician Diagnostic Impression: Primary Impression: Trapezius muscle strain Qualified Codes: S46.812A - Strain of other muscles, fascia and tendons at shoulder and upper arm level, left arm, initial encounter ER Course Patient is a 47-year-old male presenting for left sided neck pain which began 2 days prior after sleeping. Ddx considered include but not limited to sprain/strain, muscle spasm, meningitis, among others PE: Afebrile. NAD There is tenderness to palpation over the left trapezius. No midline cervical tenderness or step-offs. Left trapezius muscle is hardened to touch. Full active range of motion of the neck is intact. Negative kernig and Brudzinski sign The patient is driving so he will not be able to take first dose of medication here. He is given prescription for muscle relaxer and pain medication. He is told to use heat therapy at home. He is told to follow-up with his primary doctor as soon as possible. ER precautions given including if he develops fever, continue to worsening pain , neck stiffness Last Vital Signs Date Time Temp Pulse Resp B/P (MAP) Pulse Ox O2 Delivery O2 Flow Rate FiO2 09/21/18 12:43 98.1 87 18 148/85 99 Room Air Status: improved Disposition: HOME, SELF-CARE Condition: Improved Scripts Acetaminophen* (TYLENOL EXTRA STRENGTH*) 500 Mg Tablet 500 MG ORAL Q8H PRN for Prn Headache/Temp > 101, #30 TAB 0 Refills Prov: JIMMY FROST.Kathrine 09/21/18 Methocarbamol* (ROBAXIN-750*) 750 Mg Tablet 750 MG PO TID, #21 TAB 0 Refills Prov: JIMMY FROST.A. 09/21/18 Referrals: NOT CHOSEN IPA/MD,REFERRING (PCP) Patient Instructions: Heat Therapy, Muscle Strain Additional Instructions: I discussed my findings with the patient. All questions and concerns have been answered. Treatment and medication compliance have been addressed. I advised the patient that they need to follow up with PMD in 3-5 days. Return to ED if pain remains or worsens, numbness or tingling occurs, new rash is noticed, fever is noticed, or if needed for any reason. Patient verbalized understanding of discharge instructions. JIMMY FROST Sep 21, 2018 17:43
== END 2018-09-21 12:43 | disposition home or self-care (01) ==
LOC: EMR 12:38
DX: S46.812A Strain of other muscles, fascia and tendons at shoulder and upper arm level, left arm, initial encounter (principal); Y93.84 Activity, sleeping
CPT/HCPCS: 99283

== ENCOUNTER 2018-09-25 09:21 | Emergency (ER) | payer MEDICAID ==
[~2018-09-25] VITALS: Ht 170.2 cm; Wt 77.1 kg
[~2018-09-25 09:21] MED LIST changes: +ROBAXIN-750750 MG PO
[2018-09-25 09:26] VITALS: BP 148/88
[2018-09-25] MEDS ORDERED: COUMADIN7.5 MG ORAL (09:30)
--- NOTE | 2018-09-25 09:55 | Emergency Room Report ---
History of Present Illness General Chief Complaint: Neck Pain Source: Patient Present Illness HPI Patient is a 47-year-old male presented after increased neck pain. Patient reports having increased difficulty moving his neck. This had occurred for several days. Patient had prior similar symptoms in the past. He is previously been on anticoagulation with Coumadin for deep venous thrombosis. Patient was noted to have Allergies: Coded Allergies: PENICILLINS (Verified Allergy, Unknown, 09/21/18) Patient History Past Medical History: see triage record Reviewed Nursing Documentation: PMH: Agreed; PSxH: Agreed Nursing Documentation-PMH Past Medical History: No History, Except For Hx Cardiac Problems: No - blood clott Hx Cancer: No Hx Gastrointestinal Problems: No Hx Neurological Problems: No Review of Systems All Other Systems: negative except mentioned in HPI Physical Exam Vital Signs Date Time Temp Pulse Resp B/P (MAP) Pulse Ox O2 Delivery O2 Flow Rate FiO2 09/25/18 09:26 98.8 108 18 148/88 98 Sp02 EP Interpretation: reviewed, normal General Appearance: normal inspection, well appearing, no apparent distress, alert, GCS 15 Head: atraumatic ENT: normal ENT inspection, hearing grossly normal, normal voice Neck: normal inspection, full range of motion, supple, no bony tend Respiratory: normal inspection, lungs clear, normal breath sounds, no respiratory distress, no retraction, no wheezing Cardiovascular #1: regular rate, rhythm, no edema Gastrointestinal: normal inspection, normal bowel sounds, non tender, soft, no guarding, no hernia Genitourinary: no CVA tenderness Musculoskeletal: normal inspection, back normal, normal range of motion Neurologic: normal inspection, alert, responsive, speech normal Psychiatric: normal inspection, judgement/insight normal, mood/affect normal Skin: normal inspection, normal color, no rash Medical Decision Making Diagnostic Impression: Primary Impression: Torticollis, acute ER Course Patient presented for neck pain. Differential diagnosis included vertebral artery dissection, myocardial infarction, cervical fracture, arthritis, spondylolithises. Because of complexity of imaging studies were ordered. CT of cervical spine was ordered due to patient's anticoagulation history. CT read by radiology showed no evidence of acute hematoma or fracture or malalignment. Patient was given prescription for muscle relaxant. The patient is advised to follow up with primary care doctor in 1-2 days. Patient is advised to return if any worsening condition or if any changes in status that are concerning. This report is dictated with [employer] camera repairman software which may occasionally lead to discrepancies related to use of this software. Last Vital Signs Date Time Temp Pulse Resp B/P (MAP) Pulse Ox O2 Delivery O2 Flow Rate FiO2 09/25/18 09:26 98.8 18 148/88 98 09/25/18 09:26 108 Status: improved Disposition: HOME, SELF-CARE Condition: Stable Scripts Diazepam* (VALIUM*) 5 Mg Tablet 5 MG ORAL TID PRN for spasm, #30 TAB 0 Refills Prov: Olivier Beltre MD 09/25/18 Referrals: NON PHYSICIAN (PCP) Olivier Beltre MD Sep 25, 2018 09:55
--- NOTE | 2018-09-25 10:42 | Diagnostic Imaging Report ---
Indication: Pain Technique: CT cervical spine was performed utilizing automated exposure control without intravenous contrast material. Axial sagittal coronal images were generated. CT dose: Total DLP 537.13 mGycm; CTDI vol 21.06 mGy Comparison: None Findings: No acute cervical spine fractures identified. There is mild nonspecific straightening of the cervical lordosis. No evidence of spondylolisthesis. Vertebral body heights are maintained. Mild degenerative changes with small osteophytes at multiple levels as well as small disc bulges. These results in mild indentation of the thecal sac in the lower cervical spine without focus of severe central canal stenosis. No CT evidence of obvious foraminal narrowing. Please note that the cord, disks and nerve roots are better evaluated on MRI, which can be obtained for more sensitive evaluation as clinically indicated. There is nonspecific thickening of the tectorial membrane/posterior longitudinal ligament. No definite epidural fluid collection. No paraspinal soft tissue abnormality is appreciated. Imaged thyroid unremarkable. Imaged lung apices grossly clear. Imaged mastoid air cells and paranasal sinuses are grossly clear. Impression: Mild degenerative change of the cervical spine without evidence of acute fracture. The CT scanner at [facility] is accredited by the [employer] and the scans are performed using protocols designed to limit radiation exposure to as low as reasonably achievable to attain images of sufficient resolution adequate for diagnostic evaluation.
[2018-09-25] MEDS ORDERED: VALIUM5 MG ORAL (11:11)
[2018-09-25 11:18] VITALS: BP 139/80
== END 2018-09-25 11:18 | disposition home or self-care (01) ==
LOC: EMR 09:51
DX: M54.2 Cervicalgia (principal); Z88.0 Allergy status to penicillin
CPT/HCPCS: 72125; 99284

== ENCOUNTER 2018-11-26 18:23 | Emergency (ER) | payer MEDICAID ==
[~2018-11-26] VITALS: Ht 170.2 cm; Wt 74.8 kg
[~2018-11-26 18:23] MED LIST changes: +COUMADIN7.5 MG ORAL; +VALIUM5 MG ORAL
[2018-11-26 18:35] VITALS: BP 151/83
--- NOTE | 2018-11-26 18:35 | NUR ---
ED Nurse Note: PT WALKED IN TO ER TODAY FROM HOME. AOX4. PT C/O NOT BEING ABLE TO HAVE REGULAR BOWEL MOVEMENTS AFTER HAVING COLONOSCOPY ON 11/01/18. PT CANNOT RECALL LAST BM. PT STATES HE IS STILL ABLE TO PASS STOOL BUT NOT REGULARLY AND MUCH BEFORE. ABDOMEN NONDISTENDED AND NONTENDER TO PALPATION. PT DENIES ABDOMINAL PAIN. ACTIVE BOWEL SOUNDS IN ALL QUADRANTS.
--- NOTE | 2018-11-26 19:05 | NUR ---
ED Nurse Note: REPORT GIVEN TO JENNIE MULLINS RN
[2018-11-26 19:25] LABS: EOSINOPHILS % (AUTO) 0.2 % (0.0-3.0); HEMATOCRIT 31.1 % (42.0-52.0); HEMOGLOBIN 10.3 G/DL (14.2-18.0); MEAN CORPUSCULAR VOLUME 80 FL (80-99); NEUTROPHILS % (AUTO) 76.7 % (45.0-75.0); PLATELET COUNT 230 K/UL (150-450); RED CELL DISTRIBUTION WIDTH 13.1 % (11.6-14.8); WHITE BLOOD COUNT 8.3 K/UL (4.8-10.8)
[2018-11-26 19:35] LABS: ANION GAP 8 mmol/L (5-15); BLOOD UREA NITROGEN 12 mg/dL (7-18); CALCIUM 9.1 MG/DL (8.5-10.1); CARBON DIOXIDE 29 MMOL/L (21-32); CHLORIDE 98 MMOL/L (98-107); CREATININE 1.2 MG/DL (0.55-1.30); POTASSIUM 3.5 MMOL/L (3.5-5.1); SODIUM 135 MMOL/L (136-145)
[2018-11-26 19:40] LABS: ALANINE AMINOTRANSFERASE 21 U/L (12-78); ALBUMIN 2.7 G/DL (3.4-5.0); ALBUMIN/GLOBULIN RATIO 0.5 (1.0-2.7); ALKALINE PHOSPHATASE 85 U/L (46-116); ASPARTATE AMINO TRANSFERASE 17 U/L (15-37); BILIRUBIN,TOTAL 0.3 MG/DL (0.2-1.0)
[2018-11-26] MEDS ORDERED: Isovue-370 150ml vial INJ PRN (19:45)
--- NOTE | 2018-11-26 20:45 | NUR ---
ED Nurse Note: Urine collected; sent down to lab. Ultra sound at bedside.
[2018-11-26 21:14] LABS: APPEARANCE,URINE CLEAR; BILIRUBIN, URINE NEGATIVE (NEGATIVE); COLOR,URINE PALE YELLOW; GLUCOSE, URINE (UA) NEGATIVE (NEGATIVE); KETONES,URINE NEGATIVE (NEGATIVE); LEUKOCYTE ESTERASE ,URINE NEGATIVE (NEGATIVE); NITRITE,URINE NEGATIVE (NEGATIVE); PH,URINE 7 (4.5-8.0); PROTEIN,URINE 1+ (NEGATIVE); UROBILINOGEN,URINE 1 MG/DL (0.0-1.0)
--- NOTE | 2018-11-26 21:27 | NUR ---
ED Nurse Note: PT PTT drawn; sent down to lab.
[2018-11-26] MEDS ORDERED: Albuterol ud Inhalation HHN ONE (21:45)
[2018-11-26 21:54] LABS: INR 1.4 (0.9-1.1)
--- NOTE | 2018-11-26 22:08 | Emergency Room Report ---
History of Present Illness General Chief Complaint: General Complaint Source: Patient Present Illness HPI This patient complains of allover fatigue and body aches. He also states that he has had a cough and a sensation of shortness of breath. He denies recent illness. Denies fever or chills. He does note that he has a history of left lower extremity DVT. He states that as of August 2018 the DVT had resolved. He is still on Coumadin. He denies chest pain. He denies sputum production. He states that when he coughs he has pain into his head. He has no other complaints. Allergies: Coded Allergies: PENICILLINS (Verified Allergy, Unknown, 09/21/18) Patient History Past Medical History: see triage record, other - Hx of DVT in LLE Social History: Denies: smoking, alcohol use, drug use Reviewed Nursing Documentation: PMH: Agreed; PSxH: Agreed Nursing Documentation-PMH Past Medical History: No History, Except For Hx Cardiac Problems: No - blood clott Hx Cancer: No Hx Gastrointestinal Problems: No Hx Neurological Problems: No Review of Systems All Other Systems: negative except mentioned in HPI Physical Exam Vital Signs Date Time Temp Pulse Resp B/P (MAP) Pulse Ox O2 Delivery O2 Flow Rate FiO2 11/26/18 18:30 102.4 106 20 133/87 96 Room Air 11/26/18 21:57 21 Sp02 EP Interpretation: reviewed, normal General Appearance: no apparent distress, alert, GCS 15, non-toxic Head: normocephalic, atraumatic Eyes: bilateral eye normal inspection, bilateral eye PERRL ENT: hearing grossly normal, normal pharynx, no angioedema, normal voice Neck: full range of motion, supple/symm/no masses Respiratory: chest non-tender, lungs clear, normal breath sounds, no respiratory distress, no retraction, no accessory muscle use, speaking full sentences Cardiovascular #1: regular rate, rhythm, no edema Gastrointestinal: normal bowel sounds, non tender, soft, non-distended, no guarding, no rebound Rectal: deferred Musculoskeletal: back normal, gait/station normal, normal range of motion, non- tender Neurologic: alert, oriented x3, responsive, motor strength/tone normal, sensory intact, speech normal Psychiatric: judgement/insight normal, memory normal, mood/affect normal, no suicidal/homicidal ideation Skin: normal color, no rash, warm/dry, well hydrated Medical Decision Making Diagnostic Impression: Primary Impression: Influenza Additional Impression: Viral syndrome ER Course This patient has a clinical presentation consistent with viral syndrome. Patient overall is nontoxic with no evidence of pneumonia on chest x-ray. There does not appear to be any emergency complications. I did obtain a CTA of the chest and an ultrasound of the left lower extremity given the patient's history of DVT. These were both clear. There is no evidence of PE on CTA and there is no DVT in the left lower extremity. This is very reassuring. The patient was febrile in the emergency department. I did not identify a bacterial etiology. I suspect this patient has a viral syndrome. Do not feel this patient needs admission at this time. The patient given close return precautions and followup instructions. Laboratory Tests Test 11/26/18 18:58 11/26/18 20:45 11/26/18 21:15 White Blood Count 8.3 K/UL (4.8-10.8) Red Blood Count 3.90 M/UL (4.70-6.10) L Hemoglobin 10.3 G/DL (14.2-18.0) L Hematocrit 31.1 % (42.0-52.0) L Mean Corpuscular Volume 80 FL (80-99) Mean Corpuscular Hemoglobin 26.4 PG (27.0-31.0) L Mean Corpuscular Hemoglobin Concent 33.1 G/DL (32.0-36.0) Red Cell Distribution Width 13.1 % (11.6-14.8) Platelet Count 230 K/UL (150-450) Mean Platelet Volume 6.1 FL (6.5-10.1) L Neutrophils (%) (Auto) 76.7 % (45.0-75.0) H Lymphocytes (%) (Auto) 12.0 % (20.0-45.0) L Monocytes (%) (Auto) 10.0 % (1.0-10.0) Eosinophils (%) (Auto) 0.2 % (0.0-3.0) Basophils (%) (Auto) 1.0 % (0.0-2.0) Sodium Level 135 MMOL/L (136-145) L Potassium Level 3.5 MMOL/L (3.5-5.1) Chloride Level 98 MMOL/L (98-107) Carbon Dioxide Level 29 MMOL/L (21-32) Anion Gap 8 mmol/L (5-15) Blood Urea Nitrogen 12 mg/dL (7-18) Creatinine 1.2 MG/DL (0.55-1.30) Estimate Glomerular Filtration Rate > 60 mL/min (>60) Glucose Level 102 MG/DL (74-106) Calcium Level 9.1 MG/DL (8.5-10.1) Total Bilirubin 0.3 MG/DL (0.2-1.0) Aspartate Amino Transferase (AST) 17 U/L (15-37) Alanine Aminotransferase (ALT) 21 U/L (12-78) Alkaline Phosphatase 85 U/L (46-116) Total Protein 8.0 G/DL (6.4-8.2) Albumin 2.7 G/DL (3.4-5.0) L Globulin 5.3 g/dL Albumin/Globulin Ratio 0.5 (1.0-2.7) L Urine Color Pale yellow Urine Appearance Clear Urine pH 7 (4.5-8.0) Urine Specific [place] 1.005 (1.005-1.035) Urine Protein 1+ (NEGATIVE) H Urine Glucose (UA) Negative (NEGATIVE) Urine Ketones Negative (NEGATIVE) Urine Blood 1+ (NEGATIVE) H Urine Nitrite Negative (NEGATIVE) Urine Bilirubin Negative (NEGATIVE) Urine Urobilinogen 1 MG/DL (0.0-1.0) H Urine Leukocyte Esterase Negative (NEGATIVE) Urine RBC 0-2 /HPF (0 - 0) H Urine WBC 0-2 /HPF (0 - 0) Urine Squamous Epithelial Cells None /LPF (NONE/OCC) Urine Bacteria None /HPF (NONE) Prothrombin Time 14.7 SEC (9.30-11.50) H Prothrombin Time INR 1.4 (0.9-1.1) H PTT 36 SEC (23-33) H Chest X-Ray Diagnostic Results Chest X-Ray Diagnostic Results : Chest X-Ray Ordered: Yes # of Views/Limited/Complete: 1 View Indication: Shortness of Breath Interpretation: no consolidation, no effusion, no pneumothorax, no acute cardiopulmonary disease Impression: No acute disease Electronically Signed by: Chelsea Colon DO CT/MRI/US Diagnostic Results CT/MRI/US Diagnostic Results : Imaging Test Ordered: CTA Chest Impression No central pulmonary embolus. No consolidation. Subpleural nodularity and scarring at the left lung base. Last Vital Signs Date Time Temp Pulse Resp B/P (MAP) Pulse Ox O2 Delivery O2 Flow Rate FiO2 11/26/18 21:57 102 19 100 Room Air 21 11/26/18 18:35 101.0 151/83 Status: improved Disposition: HOME, SELF-CARE Condition: Improved Scripts Docusate Sodium* (COLACE*) 100 Mg Capsule 100 MG ORAL TWICE A DAY, #20 CAP Prov: Olivier Beltre MD 11/27/18 Oseltamivir Phosphate (Tamiflu) 75 Mg Capsule 75 MG ORAL TWICE A DAY, #10 CAP Prov: Olivier Beltre MD 11/27/18 Referrals: NON PHYSICIAN (PCP) Chelsea Colon DO Nov 26, 2018 22:08
[2018-11-26] MEDS ORDERED: Acetaminophen 500mg (ES) tab ORAL ONE (22:15)
[2018-11-27] MEDS ORDERED: COLACE100 MG ORAL (00:41)
[2018-11-27] MEDS ORDERED: TAMIFLU75 MG ORAL (00:41)
[2018-11-27 00:44] VITALS: BP 116/69
[2018-11-27 01:00] VITALS: BP 116/69
--- NOTE | 2018-11-27 01:00 | NUR ---
ED Nurse Note: Patient cleared cleared for discharge per ERMD. AO4. NAD. VSS; temp 97.3. Patient given prescriptions and discharge instructions; verbalized understanding. IV and ID removed. Patient ambulated steady out of ED with all belongings.
--- NOTE | 2018-11-27 09:26 | Diagnostic Imaging Report ---
Indication: Chest pain Technique: Continuous helical transaxial imaging of the chest was obtained from the thoracic inlet to the upper abdomen during rapid intravenous contrast administration. Arterial phase of enhancement obtained. Coronal 2-D reformats were also obtained and maximum intensity projection images in multiple planes. Study obtained in a Siemens sensation [address] Automatic Exposure Control was utilized. Total Dose length Product (DLP): 778.[address] Dose Index Volume (CTDIvol): 25.79 mGy Comparison: None Findings: The pulmonary artery is well opacified and shows no filling defects. There is no adenopathy, pleural or pericardial effusions are identified. There is no aortic dissection or aneurysm identified within the chest. Small patchy density at the periphery of the left lung base demonstrated. This may be a small area of atelectasis or scarring. Visualized part of the upper abdomen is unremarkable. Impression: No evidence of pulmonary embolus, aortic dissection or aneurysm. Small focus of scarring versus atelectasis left lung base. [facility] has communicated the preliminary results to the Emergency Department. Their findings are largely concordant with this report. The CT scanner at [facility] is accredited by the [employer] and the scans are performed using dose optimization techniques as appropriate to a performed exam including Automatic Exposure control.
--- NOTE | 2018-11-27 09:54 | Diagnostic Imaging Report ---
Indication: Left lower extremity pain and swelling. Technique: Duplex Doppler imaging performed from the left common femoral vein to the popliteal vein. FINDINGS: Normal compressibility demonstrated from the common femoral vein to the popliteal vein. Respiratory phasicity and good augmentation demonstrated on waveform analysis. There is no evidence of thrombosis. IMPRESSION: No evidence of deep venous thrombosis within the left lower extremity.
--- NOTE | 2018-11-27 11:00 | Diagnostic Imaging Report ---
Indication: Cough Comparison: None A single view chest radiograph was obtained. Findings: Cardiomediastinal appearance is within normal limits for age. The lungs are clear. Pulmonary vascularity is appropriate. The diaphragmatic contour is smooth and costophrenic angles are sharp. No pleural effusions are identified. The bones are unremarkable. Impression: No acute findings
== END 2018-11-27 01:00 | disposition home or self-care (01) ==
LOC: EMR 18:51
DX: J11.1 Influenza due to unidentified influenza virus with other respiratory manifestations (principal); Z88.0 Allergy status to penicillin
CPT/HCPCS: 36415; 71045; 71275; 80053; 81003; 85025; 85610; 85730; 86710; 93971; 94640; 94664; 96360; 96361; 99284; Q9967

== ENCOUNTER 2018-12-15 15:28 | Emergency (ER) | payer MEDICAID ==
[~2018-12-15] VITALS: Ht 170.2 cm; Wt 72.6 kg
[~2018-12-15 15:28] MED LIST changes: +COLACE100 MG ORAL; +TAMIFLU75 MG ORAL
[2018-12-15] MEDS ORDERED: PRILOSEC OTC20 MG ORAL (15:42)
--- NOTE | 2018-12-15 15:55 | Emergency Room Report ---
History of Present Illness General Chief Complaint: Flu Like Symptoms Source: Patient Present Illness HPI Patient presents with 4-5 days of cough. He's also felt weak. He's been taking fluids. Before coming in his took his heart rate was 126. He has had fevers, somewhat controlled by Tylenol. He took some Tylenol before coming in and he is doing better at this time. Denies any vomiting or nausea. He hasn 't heard himself wheezing. He also has a headache. The pain is 3/10, throbbing , generalized, not radiating. No neck stiffness. The patient was diagnosed with influenza here this year. He was treated for that. (Review shows Influenza swab was negative.) It feels similar although he doesn't have a sore throat at this time. Stools loose - liquid - no melena. Patient has a history of DVT and is on Coumadin at this time. No recent leg pain or edema. (Anticardiolipin IGM was intermediate in past. 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 Nursing Documentation: PMH: Agreed; PSxH: Agreed Nursing Documentation-PMH Past Medical History: No History, Except For Hx Cardiac Problems: Yes - DVT Hx Hypertension: No Hx Pacemaker: No Hx Asthma: No Hx COPD: No Hx Diabetes: No Hx Cancer: No Hx Gastrointestinal Problems: No Hx Dialysis: No History Of Psychiatric Problem: No Hx Neurological Problems: No Hx Cerebrovascular Accident: No Hx Seizures: No Review of Systems All Other Systems: negative except mentioned in HPI Physical Exam Vital Signs Date Time Temp Pulse Resp B/P (MAP) Pulse Ox O2 Delivery O2 Flow Rate FiO2 12/15/18 15:36 98.4 97 14 118/80 96 Room Air Sp02 EP Interpretation: reviewed, normal General Appearance: well appearing, no apparent distress, GCS 15 Head: normocephalic Eyes: bilateral eye normal inspection, bilateral eye PERRL, bilateral eye EOMI ENT: moist mucus membranes, pharyngeal erythema Neck: supple Respiratory: lungs clear, normal breath sounds Cardiovascular #1: regular rate, rhythm, no edema Cardiovascular #2: 2+ radial (R) Gastrointestinal: normal inspection, normal bowel sounds, non tender, no mass, non-distended, scaphoid Musculoskeletal: back normal, gait/station normal, normal range of motion, no calf tenderness, Josemanuel's Sign negative Neurologic: alert, oriented x3, grossly normal Psychiatric: mood/affect normal Skin: normal inspection, warm/dry Medical Decision Making Diagnostic Impression: Primary Impression: Atypical pneumonia Additional Impressions: Bronchospasm Anticoagulation adequate ER Course Patient on Coumadin presents with upper respiratory symptomatology with fever and tachycardia at home. Differential includes pneumonia, bronchitis, viral syndrome, different strain of influenza others. Evaluation will be with EKG, chest x-ray and labs. The patient will be treated with IV hydration. He is denying any calf pain at this time. He just took Tylenol before coming in. EKG NSR and normal. CXR no infiltrate but inc perihilar morales. WBC elevated. INR 2.0. Mild renal insufficiency. Some improvement with breathing treatments. Given the clinical picture, diagnosis is atypical pneumonia. Azithromycin and prednisone given. Discussed treatment plan. Also advised that antibiotics might change INR - needs to have this rechecked. Patient stable for outpatient observation and treatment. Laboratory Tests Test 12/15/18 16:15 12/15/18 16:38 White Blood Count 11.2 K/UL (4.8-10.8) H Red Blood Count 4.05 M/UL (4.70-6.10) L Hemoglobin 10.7 G/DL (14.2-18.0) L Hematocrit 31.2 % (42.0-52.0) L Mean Corpuscular Volume 77 FL (80-99) L Mean Corpuscular Hemoglobin 26.4 PG (27.0-31.0) L Mean Corpuscular Hemoglobin Concent 34.3 G/DL (32.0-36.0) Red Cell Distribution Width 14.0 % (11.6-14.8) Platelet Count 196 K/UL (150-450) Mean Platelet Volume 5.9 FL (6.5-10.1) L Neutrophils (%) (Auto) 83.8 % (45.0-75.0) H Lymphocytes (%) (Auto) 7.5 % (20.0-45.0) L Monocytes (%) (Auto) 7.7 % (1.0-10.0) Eosinophils (%) (Auto) 0.1 % (0.0-3.0) Basophils (%) (Auto) 0.9 % (0.0-2.0) Prothrombin Time 20.4 SEC (9.30-11.50) H Prothrombin Time INR 2.0 (0.9-1.1) H Sodium Level 132 MMOL/L (136-145) L Potassium Level 3.5 MMOL/L (3.5-5.1) Chloride Level 96 MMOL/L (98-107) L Carbon Dioxide Level 29 MMOL/L (21-32) Anion Gap 7 mmol/L (5-15) Blood Urea Nitrogen 14 mg/dL (7-18) Creatinine 1.4 MG/DL (0.55-1.30) H Estimate Glomerular Filtration Rate > 60 mL/min (>60) Glucose Level 105 MG/DL (74-106) Calcium Level 9.3 MG/DL (8.5-10.1) Total Bilirubin 0.6 MG/DL (0.2-1.0) Aspartate Amino Transferase (AST) 18 U/L (15-37) Alanine Aminotransferase (ALT) 24 U/L (12-78) Alkaline Phosphatase 77 U/L (46-116) Troponin I 0.048 ng/mL (0.000-0.056) Pro-B-Type Natriuretic Peptide 69 pg/mL (0-125) Total Protein 8.3 G/DL (6.4-8.2) H Albumin 2.9 G/DL (3.4-5.0) L Globulin 5.4 g/dL Albumin/Globulin Ratio 0.5 (1.0-2.7) L Urine Color Yellow Urine Appearance Clear Urine pH 5 (4.5-8.0) Urine Specific [place] 1.015 (1.005-1.035) Urine Protein 2+ (NEGATIVE) H Urine Glucose (UA) Negative (NEGATIVE) Urine Ketones Negative (NEGATIVE) Urine Blood 4+ (NEGATIVE) H Urine Nitrite Negative (NEGATIVE) Urine Bilirubin Negative (NEGATIVE) Urine Urobilinogen 1 MG/DL (0.0-1.0) H Urine Leukocyte Esterase Negative (NEGATIVE) Urine RBC 5-10 /HPF (0 - 0) H Urine WBC 2-4 /HPF (0 - 0) Urine Squamous Epithelial Cells None /LPF (NONE/OCC) Urine Amorphous Sediment Few /LPF (NONE) H Urine Bacteria Few /HPF (NONE) Microbiology Date/Time Source Procedure Growth Status 12/15/18 16:25 Nasal Nares Influenza Types A,B Antigen (ROCIO) - Final Complete EKG Diagnostic Results Rate: normal Rhythm: NSR ST Segments: no acute changes Rhythm Strip Diag. Results EP Interpretation: yes Rhythm: NSR, no PVC's, no ectopy Chest X-Ray Diagnostic Results Chest X-Ray Diagnostic Results : Chest X-Ray Ordered: Yes # of Views/Limited/Complete: 1 View Indication: Other EP Interpretation: Yes Interpretation: no consolidation, no effusion, no pneumothorax, other - inc perihilar morales Impression: Other Electronically Signed by: Electronically signed by Wild Millan MD Last Vital Signs Date Time Temp Pulse Resp B/P (MAP) Pulse Ox O2 Delivery O2 Flow Rate FiO2 12/15/18 19:11 98.4 92 19 125/83 99 Room Air 21 Status: improved Disposition: HOME, SELF-CARE Condition: Improved Scripts Albuterol Sulfate* (ALBUTEROL SULFATE MDI*) 8.5 Gm Hfa.aer.ad 2 PUFF INH Q6H, #1 EA 0 Refills Prov: Wild Millan MD 12/15/18 Azithromycin* (ZITHROMAX*) 250 Mg Tablet 250 MG ORAL DAILY, #4 TAB Prov: Wild Millan MD 12/15/18 Guaifenesin/Codeine Phos* (ROBITUSSIN AC*) 118 Ml Liquid 5 ML ORAL Q6H PRN for For Cough, #118 ML 0 Refills Prov: Wild Millan MD 12/15/18 Prednisone* (PREDNISONE*) 20 Mg Tablet 40 MG ORAL DAILY, #6 TAB Prov: Wild Millan MD 12/15/18 Wild Millan MD Dec 15, 2018 15:55
[2018-12-15] MEDS ORDERED: Albuterol ud Inhalation HHN ONE (16:00)
[2018-12-15 16:06] VITALS: BP 118/80
--- NOTE | 2018-12-15 16:08 | NUR ---
ED Nurse Note:pt. 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
[2018-12-15 16:52] LABS: BASOPHILS % (AUTO) 0.9 % (0.0-2.0); EOSINOPHILS % (AUTO) 0.1 % (0.0-3.0); HEMATOCRIT 31.2 % (42.0-52.0); HEMOGLOBIN 10.7 G/DL (14.2-18.0); LYMPHOCYTES % (AUTO) 7.5 % (20.0-45.0); MEAN CORPUSCULAR VOLUME 77 FL (80-99); MONOCYTES % (AUTO) 7.7 % (1.0-10.0); NEUTROPHILS % (AUTO) 83.8 % (45.0-75.0); PLATELET COUNT 196 K/UL (150-450); RED BLOOD COUNT 4.05 M/UL (4.70-6.10); WHITE BLOOD COUNT 11.2 K/UL (4.8-10.8)
--- NOTE | 2018-12-15 17:00 | NUR ---
ED Nurse Note:orthostatic VS was taken and it's with in normal limits
[2018-12-15 17:13] LABS: APPEARANCE,URINE CLEAR; BILIRUBIN, URINE NEGATIVE (NEGATIVE); GLUCOSE, URINE (UA) NEGATIVE (NEGATIVE); KETONES,URINE NEGATIVE (NEGATIVE); LEUKOCYTE ESTERASE ,URINE NEGATIVE (NEGATIVE); NITRITE,URINE NEGATIVE (NEGATIVE); PH,URINE 5 (4.5-8.0); PROTEIN,URINE 2+ (NEGATIVE); UROBILINOGEN,URINE 1 MG/DL (0.0-1.0)
[2018-12-15 17:15] LABS: COLOR,URINE YELLOW
[2018-12-15 17:20] LABS: ANION GAP 7 mmol/L (5-15); BLOOD UREA NITROGEN 14 mg/dL (7-18); CALCIUM 9.3 MG/DL (8.5-10.1); CARBON DIOXIDE 29 MMOL/L (21-32); CHLORIDE 96 MMOL/L (98-107); CREATININE 1.4 MG/DL (0.55-1.30); POTASSIUM 3.5 MMOL/L (3.5-5.1); SODIUM 132 MMOL/L (136-145)
[2018-12-15 17:30] LABS: ALANINE AMINOTRANSFERASE 24 U/L (12-78); ALBUMIN 2.9 G/DL (3.4-5.0); ALBUMIN/GLOBULIN RATIO 0.5 (1.0-2.7); ALKALINE PHOSPHATASE 77 U/L (46-116); ASPARTATE AMINO TRANSFERASE 18 U/L (15-37); BILIRUBIN,TOTAL 0.6 MG/DL (0.2-1.0)
[2018-12-15] MEDS ORDERED: Azithromycin 250mg tab ORAL ONE (18:30)
[2018-12-15 19:10] VITALS: BP 125/83
[2018-12-15 19:11] VITALS: BP 125/83
--- NOTE | 2018-12-15 19:11 | NUR ---
ER DISCHARGE NOTE: Patient is cleared to be discharged per ERMD, pt is aox4, on room air, with stable vital signs. pt was given dc and prescription instructions, pt was able to verbalize understanding, pt id band and iv site removed without complications. pt is able to ambulate with steady gait. pt took all belongings.
[2018-12-15] MEDS ORDERED: GUAIFENESIN-CO118 M1 ORAL (19:27)
[2018-12-15] MEDS ORDERED: ZITHROMAX250 MG ORAL (19:27)
[2018-12-15] MEDS ORDERED: PREDNISONE20 MG ORAL (19:27)
[2018-12-15] MEDS ORDERED: ALBUTEROL SULF8.5 GM INH (19:31)
--- NOTE | 2018-12-16 12:10 | Diagnostic Imaging Report ---
Indication: Cough Technique: One view of the chest Comparison: 11/26/2018 Findings: Lungs and pleural spaces are clear. Heart size is normal. No significant interim change Impression: No acute process
== END 2018-12-15 19:11 | disposition home or self-care (01) ==
LOC: EMR 16:10
DX: J18.9 Pneumonia, unspecified organism (principal); J98.01 Acute bronchospasm; Z79.01 Long term (current) use of anticoagulants; R51 Headache; Z88.0 Allergy status to penicillin; Z86.718 Personal history of other venous thrombosis and embolism
CPT/HCPCS: 36415; 71045; 80053; 81003; 83880; 84484; 85025; 85610; 86710; 93005; 94640; 96360; 99284; J7512; Q0144

== ENCOUNTER 2019-05-11 04:04 | Emergency (ER) | payer MEDICAID ==
[~2019-05-11] VITALS: Ht 170.2 cm; Wt 73.9 kg
[~2019-05-11 04:04] MED LIST changes: +ALBUTEROL SULF8.5 GM INH; +GUAIFENESIN-CO118 M1 ORAL; +PREDNISONE20 MG ORAL; +PRILOSEC OTC20 MG ORAL; +ZITHROMAX250 MG ORAL
[2019-05-11 04:05] VITALS: BP 151/89
--- NOTE | 2019-05-11 04:22 | NUR ---
ED Nurse Note: PT WALKED IN C/O SEVER HEADACHE FOR 2 WEEKS WITH HX OF LUMBAR PUNCTURE, BLURRED VISION,MUSCLE ACHE, AND UNSTEADY GAIT. AAO X4, VSS, VERBAL, AND ALERT.
[2019-05-11] MEDS ORDERED: Ketorolac 30mg Inj IV ONE (04:30)
[2019-05-11] MEDS ORDERED: Metoclopramide 10mg/2ml Inj IVP ONE (04:30)
[2019-05-11] MEDS ORDERED: Dexamethasone 4mg/ml vial IVP ONE (04:30)
[2019-05-11] MEDS ORDERED: DiphenhydrAMINE 50mg/ml Inj IVP ONE (04:30)
--- NOTE | 2019-05-11 04:32 | Emergency Room Report ---
History of Present Illness General Chief Complaint: Headache Source: Patient Present Illness HPI This a 48-year-old male with recent history of sepsis and valley fever. He subsequently developed headache after getting a lumbar puncture. He received a blood patch that got better. Now has been having headache that is recurrent and been ongoing for about 2 weeks now. He went to the ER couple times already. He was just there yesterday. He said labs were unremarkable. CT head was negative. He was prescribed initially Fioricet and then [place]. Said is not helping. Pain is throbbing in nature. 10 out of 10. No focal deficit. No fever chills. Nothing made it better. Nothing made it worse. Has not seen a neurologist. Allergies: Coded Allergies: PENICILLINS (Verified Allergy, Unknown, 09/21/18) Patient History Past Medical History: see triage record, old chart reviewed Past Surgical History: other Pertinent Family History: none Social History: Denies: smoking Immunizations: other Reviewed Nursing Documentation: PMH: Agreed; PSxH: Agreed Nursing Documentation-PMH Hx Cardiac Problems: Yes - history of DVT left leg Hx Hypertension: No Hx Pacemaker: No Hx Asthma: No Hx COPD: No Hx Diabetes: No Hx Cancer: No Hx Gastrointestinal Problems: No Hx Dialysis: No Hx Neurological Problems: No Hx Cerebrovascular Accident: No Hx Seizures: No Review of Systems Eye: Denies: eye pain, blurred vision ENT: Denies: ear pain, nose congestion, throat swelling Respiratory: Denies: cough, shortness of breath Cardiovascular: Denies: chest pain, palpitations Gastrointestinal: Denies: abdominal pain, diarrhea, nausea, vomiting Musculoskeletal: Denies: back pain, joint pain Skin: Denies: rash Neurological: Reports: headache; Denies: numbness Endocrine: Denies: increased thirst, increased urine Hematologic/Lymphatic: Denies: easy bruising All Other Systems: negative except mentioned in HPI Physical Exam Vital Signs Date Time Temp Pulse Resp B/P (MAP) Pulse Ox O2 Delivery O2 Flow Rate FiO2 05/11/19 04:05 98.1 82 19 168/94 (118) 98 Room Air vitals with hypertension Sp02 EP Interpretation: reviewed, normal General Appearance: well appearing, no apparent distress, alert Head: normocephalic, atraumatic Eyes: bilateral eye PERRL, bilateral eye EOMI ENT: hearing grossly normal, normal pharynx Neck: full range of motion, supple, no meningismus Respiratory: chest non-tender, lungs clear, normal breath sounds Cardiovascular #1: regular rate, rhythm, no murmur Gastrointestinal: normal bowel sounds, non tender, no mass, no organomegaly, no bruit, non-distended Musculoskeletal: back normal, gait/station normal, normal range of motion Psychiatric: mood/affect normal Medical Decision Making Diagnostic Impression: Primary Impression: Headache Qualified Codes: R51 - Headache Additional Impression: Hypertension Qualified Codes: I10 - Essential (primary) hypertension ER Course Patient presents with headache. No evidence of meningitis, bleed, neoplastic process. He already had CT scan done yesterday. I see no need for repeat. His headache resolved after medication here. Blood pressure remained elevated however. We will put him on blood pressure medication. Last Vital Signs Date Time Temp Pulse Resp B/P (MAP) Pulse Ox O2 Delivery O2 Flow Rate FiO2 05/11/19 04:05 98.1 82 19 168/94 (118) 98 Room Air Status: improved Disposition: HOME, SELF-CARE Condition: Stable Scripts Sumatriptan Succinate* (IMITREX*) 50 Mg Tablet 50 MG ORAL DAILY PRN MIGRAINE for headache, #30 TAB Prov: Aleks Gregg MD 05/11/19 Amlodipine Besylate (Norvasc) 10 Mg Tablet 5 MG ORAL DAILY, #90 TAB Prov: Aleks Gregg MD 05/11/19 Amitriptyline HCl (ELAVIL*) 75 Mg Tablet 75 MG ORAL BEDTIME, #30 TAB Prov: Aleks Gregg MD 05/11/19 Referrals: NON PHYSICIAN (PCP) Patient Instructions: General Headache Without Cause Additional Instructions: Follow-up with your doctor within a week. You may need a referral to see a neurologist. Return if symptoms worsen. Aleks Gregg MD May 11, 2019 04:32
[2019-05-11 05:19] LABS: HEMATOCRIT 35.3 % (42.0-52.0); HEMOGLOBIN 11.5 G/DL (14.2-18.0); MEAN CORPUSCULAR VOLUME 79 FL (80-99); PLATELET COUNT 257 K/UL (150-450); RED BLOOD COUNT 4.46 M/UL (4.70-6.10); RED CELL DISTRIBUTION WIDTH 16.5 % (11.6-14.8); WHITE BLOOD COUNT 8.6 K/UL (4.8-10.8)
[2019-05-11 05:28] LABS: ANION GAP 4 mmol/L (5-15); BLOOD UREA NITROGEN 6 mg/dL (7-18); CALCIUM 9.6 MG/DL (8.5-10.1); CARBON DIOXIDE 32 MMOL/L (21-32); CHLORIDE 98 MMOL/L (98-107); POTASSIUM 3.4 MMOL/L (3.5-5.1); SODIUM 134 MMOL/L (136-145)
[2019-05-11] MEDS ORDERED: NORVASC10 MG ORAL (06:14)
[2019-05-11] MEDS ORDERED: IMITREX50 MG ORAL (06:14)
[2019-05-11] MEDS ORDERED: AMITRIPTYLINE75 MG ORAL (06:14)
[2019-05-11 06:25] VITALS: BP 158/99
== END 2019-05-11 06:25 | disposition home or self-care (01) ==
LOC: EMR 04:20
DX: R51 Headache (principal); I10 Essential (primary) hypertension; Z88.0 Allergy status to penicillin; Z86.718 Personal history of other venous thrombosis and embolism
CPT/HCPCS: 36415; 80048; 85007; 85025; 96361; 96374; 96375; 99284; J1100; J1200; J1885; J2765

== ENCOUNTER 2019-05-12 20:44 | Inpatient (IN) | payer MEDICAID ==
[~2019-05-12] VITALS: Ht 172.7 cm; Wt 74.4 kg
[~2019-05-12 20:44] MED LIST changes: +AMITRIPTYLINE75 MG ORAL; +IMITREX50 MG ORAL; +NORVASC10 MG ORAL
[2019-05-12 21:05] VITALS: BP 166/99
--- NOTE | 2019-05-12 21:05 | NUR ---
ED Nurse Note: patient ambulated to ed c/o dizziness and increasing headache x2 weeks. 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
--- NOTE | 2019-05-12 21:42 | NUR ---
ED Nurse Note: pt went to CT
--- NOTE | 2019-05-12 21:53 | Emergency Room Report ---
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 After that the patient was seen by infectious disease and had lumbar puncture performed Patient developed significant headaches after that And required a blood patch at [facility] reports that he was doing better for about 7 to 10 days after this however Several days ago again started having increased headaches Patient was seen here reports that he did have some relief with medications however this evening again the headache slowly started to progress denies any focal weakness denies any chest pain or shortness of breath Denies any lower extremity weakness Allergies: Coded Allergies: PENICILLINS (Verified Allergy, Unknown, 09/21/18) Patient History Past Medical History: see triage record Reviewed Nursing Documentation: PMH: Agreed; PSxH: Agreed Nursing Documentation-PMH Past Medical History: No History, Except For Hx Cardiac Problems: Yes - history of DVT left leg 2018 Hx Hypertension: No Hx Pacemaker: No Hx Asthma: No Hx COPD: No Hx Diabetes: No Hx Cancer: No Hx Gastrointestinal Problems: No Hx Dialysis: No Hx Neurological Problems: No Hx Cerebrovascular Accident: No Hx Seizures: No Review of Systems All Other Systems: negative except mentioned in HPI Physical Exam Vital Signs Date Time Temp Pulse Resp B/P (MAP) Pulse Ox O2 Delivery O2 Flow Rate FiO2 05/12/19 21:01 98.2 79 26 166/99 (121) 100 Room Air Sp02 EP Interpretation: reviewed, normal General Appearance: well appearing, no apparent distress Head: normocephalic, atraumatic Eyes: bilateral eye PERRL, bilateral eye EOMI ENT: hearing grossly normal, normal pharynx, TMs + canals normal, uvula midline Neck: full range of motion, supple, no meningismus, no bony tend Respiratory: lungs clear, normal breath sounds, no rhonchi, no respiratory distress, no retraction, no accessory muscle use Cardiovascular #1: normal peripheral pulses, regular rate, rhythm, no edema, no gallop, no JVD, no murmur Gastrointestinal: normal bowel sounds, non tender, soft, no mass, no organomegaly, non-distended, no guarding, no hernia, no pulsatile mass, no rebound Genitourinary: no CVA tenderness Musculoskeletal: normal inspection Neurologic: oriented x3, responsive, draft roller picker III-XII nml as tested, motor strength/ tone normal, sensory intact Psychiatric: mood/affect normal Skin: no rash Lymphatic: normal inspection, no adenopathy Medical Decision Making Diagnostic Impression: Primary Impression: Dizziness Additional Impressions: Malignant hypertension Headache ER Course Patient has a fairly complex medical history Multiple differentials are in consideration including but not limited to meningitis, viral syndrome Secondary pathology from previous LP, however this is less likely given the fact that the patient had blood patch and was asymptomatic for over [address] head does not show any acute disease patient's blood work is appropriate initial blood pressure was elevated and started to improve Given his multiple presentations and repeat evaluations Patient requires further inpatient care Labs Test 05/12/19 21:37 05/12/19 23:10 White Blood Count 7.1 K/UL (4.8-10.8) Red Blood Count 4.48 M/UL (4.70-6.10) Hemoglobin 11.7 G/DL (14.2-18.0) Hematocrit 34.8 % (42.0-52.0) Mean Corpuscular Volume 78 FL (80-99) Mean Corpuscular Hemoglobin 26.1 PG (27.0-31.0) Mean Corpuscular Hemoglobin Concent 33.5 G/DL (32.0-36.0) Red Cell Distribution Width 15.6 % (11.6-14.8) Platelet Count 266 K/UL (150-450) Mean Platelet Volume 6.0 FL (6.5-10.1) Neutrophils (%) (Auto) 78.9 % (45.0-75.0) Lymphocytes (%) (Auto) 13.2 % (20.0-45.0) Monocytes (%) (Auto) 6.6 % (1.0-10.0) Eosinophils (%) (Auto) 0.7 % (0.0-3.0) Basophils (%) (Auto) 0.6 % (0.0-2.0) Sodium Level 137 MMOL/L (136-145) Potassium Level 3.6 MMOL/L (3.5-5.1) Chloride Level 100 MMOL/L (98-107) Carbon Dioxide Level 30 MMOL/L (21-32) Anion Gap 7 mmol/L (5-15) Blood Urea Nitrogen 14 mg/dL (7-18) Creatinine 0.9 MG/DL (0.55-1.30) Estimat Glomerular Filtration Rate > 60 mL/min (>60) Glucose Level 112 MG/DL (74-106) Lactic Acid Level 1.30 mmol/L (0.4-2.0) Calcium Level 10.1 MG/DL (8.5-10.1) Total Bilirubin 0.3 MG/DL (0.2-1.0) Aspartate Amino Transf (AST/SGOT) 10 U/L (15-37) Alanine Aminotransferase (ALT/SGPT) 14 U/L (12-78) Alkaline Phosphatase 104 U/L (46-116) Total Creatine Kinase 38 U/L (26-308) Creatine Kinase MB < 0.5 NG/ML (0.0-3.6) Creatine Kinase MB Relative Index 1.3 Total Protein 9.1 G/DL (6.4-8.2) Albumin 3.6 G/DL (3.4-5.0) Globulin 5.5 g/dL Albumin/Globulin Ratio 0.7 (1.0-2.7) Lipase 160 U/L (73-393) Urine Color Pale yellow Urine Appearance Clear Urine pH 7 (4.5-8.0) Urine Specific [place] 1.010 (1.005-1.035) Urine Protein Negative (NEGATIVE) Urine Glucose (UA) Negative (NEGATIVE) Urine Ketones Negative (NEGATIVE) Urine Blood Negative (NEGATIVE) Urine Nitrite Negative (NEGATIVE) Urine Bilirubin Negative (NEGATIVE) Urine Urobilinogen Normal MG/DL (0.0-1.0) Urine Leukocyte Esterase Negative (NEGATIVE) Rhythm Strip Diag. Results EP Interpretation: yes Rate: 80 Rhythm: NSR, no PVC's, no ectopy Chest X-Ray Diagnostic Results Chest X-Ray Diagnostic Results : Chest X-Ray Ordered: Yes # of Views/Limited/Complete: 1 View Indication: Chest Pain EP Interpretation: Yes Interpretation: no consolidation, no effusion, no pneumothorax Impression: No acute disease Electronically Signed by: Saranya Dockery DO CT/MRI/US Diagnostic Results CT/MRI/US Diagnostic Results : Impression CT head no acute disease Last Vital Signs Date Time Temp Pulse Resp B/P (MAP) Pulse Ox O2 Delivery O2 Flow Rate FiO2 05/12/19 21:05 79 26 Room Air 05/12/19 21:05 98.2 166/99 100 Status: improved Disposition: ADMITTED INPATIENT Condition: Serious Saranya Dockery DO May 12, 2019 21:53
--- NOTE | 2019-05-12 21:59 | Diagnostic Imaging Report ---
CT HEAD WITHOUT CONTRAST INDICATION: Dizziness and headache Technique: Continuous helical CT scanning of the head was performed without intravenous contrast material. Axial and coronal 5 mm sections were generated. Radiation dose was minimized using automated exposure control DOSE: Total Dose Length Product - DLP 1344.[address] Dose Index - CTDIvol(s) 70.38 mGy. COMPARISON: None available FINDINGS: There is no acute intracranial hemorrhage, mass effect or cortical edema. The ventricles, cisterns and sulci are normal for age. Visualized mastoid air cells and paranasal sinuses are unremarkable. No focal lesions of the bony calvarium or soft tissues of the scalp are seen. IMPRESSION: No evidence of acute intracranial hemorrhage, mass effect or cortical edema. MRI may be obtained for more sensitive evaluation as clinically indicated. The CT scanner at [facility] is accredited by the [employer] and the scans are performed using protocols designed to limit radiation exposure to as low as reasonably achievable to attain images of sufficient resolution adequate for diagnostic evaluation.
[2019-05-12] MEDS ORDERED: Metoclopramide 10mg/2ml Inj IVP ONE (22:00)
[2019-05-12] MEDS ORDERED: Ketorolac 30mg Inj IV ONE (22:00)
[2019-05-12] MEDS ORDERED: DiphenhydrAMINE 50mg/ml Inj IVP ONE (22:00)
[2019-05-12 22:28] LABS: BASOPHILS % (AUTO) 0.6 % (0.0-2.0); EOSINOPHILS % (AUTO) 0.7 % (0.0-3.0); HEMATOCRIT 34.8 % (42.0-52.0); HEMOGLOBIN 11.7 G/DL (14.2-18.0); LYMPHOCYTES % (AUTO) 13.2 % (20.0-45.0); MEAN CORPUSCULAR VOLUME 78 FL (80-99); MONOCYTES % (AUTO) 6.6 % (1.0-10.0); NEUTROPHILS % (AUTO) 78.9 % (45.0-75.0); PLATELET COUNT 266 K/UL (150-450); RED BLOOD COUNT 4.48 M/UL (4.70-6.10); RED CELL DISTRIBUTION WIDTH 15.6 % (11.6-14.8); WHITE BLOOD COUNT 7.1 K/UL (4.8-10.8)
[2019-05-12 22:33] LABS: ANION GAP 7 mmol/L (5-15); BLOOD UREA NITROGEN 14 mg/dL (7-18); CALCIUM 10.1 MG/DL (8.5-10.1); CARBON DIOXIDE 30 MMOL/L (21-32); CHLORIDE 100 MMOL/L (98-107); CREATININE 0.9 MG/DL (0.55-1.30); POTASSIUM 3.6 MMOL/L (3.5-5.1); SODIUM 137 MMOL/L (136-145)
[2019-05-12 22:47] LABS: ALANINE AMINOTRANSFERASE 14 U/L (12-78); ALBUMIN 3.6 G/DL (3.4-5.0); ALBUMIN/GLOBULIN RATIO 0.7 (1.0-2.7); ALKALINE PHOSPHATASE 104 U/L (46-116); ASPARTATE AMINO TRANSFERASE 10 U/L (15-37); BILIRUBIN,TOTAL 0.3 MG/DL (0.2-1.0); CKMB < 0.5 NG/ML (0.0-3.6); CREATINE KINASE 38 U/L (26-308)
[2019-05-12] MEDS ORDERED: Morphine Sulfate 2mg/ml Inj(IV/IM USE ONLY) IVP PRN (23:00)
[2019-05-12] MEDS ORDERED: Miralax 17gm pkt ORAL PRN (23:00)
[2019-05-12] MEDS ORDERED: LORazepam Inj 2mg/ml 1ml IV PRN (23:00)
[2019-05-12] MEDS ORDERED: Zolpidem 5mg tab ORAL PRN (23:00)
--- NOTE | 2019-05-12 23:00 | NUR ---
ED Nurse Note: brother at bedside lokesh gaona [phone]
[2019-05-12 23:33] LABS: APPEARANCE,URINE CLEAR; BILIRUBIN, URINE NEGATIVE (NEGATIVE); COLOR,URINE PALE YELLOW; GLUCOSE, URINE (UA) NEGATIVE (NEGATIVE); KETONES,URINE NEGATIVE (NEGATIVE); LEUKOCYTE ESTERASE ,URINE NEGATIVE (NEGATIVE); NITRITE,URINE NEGATIVE (NEGATIVE); PH,URINE 7 (4.5-8.0); UROBILINOGEN,URINE NORMAL MG/DL (0.0-1.0)
[2019-05-12 23:35] VITALS: BP 153/95
[2019-05-12 23:35] LABS: PROTEIN,URINE NEGATIVE (NEGATIVE)
--- NOTE | 2019-05-12 23:49 | NUR ---
ED Nurse Note: TELEPHONE REPORT GIVEN TO RO QUEZADA
[2019-05-13] VITALS (7 sets, daily range): BP systolic 139–158; BP diastolic 92–100
--- NOTE | 2019-05-13 | NUR ---
NURSE NOTES: Pt received from ED, alert and oriented x4. In bed, locked, lowest position. PT placed ON WOOL WASHER FEEDER, running NSR. BP elevated. MD Salguero placed admitting orders, will follow. PT DENIES PAIN AT THIS TIME. PT SHOWS NO ACUTE SIGNS OF DISTRESS. PT BELONGINGS signed and accounted for upon transfer
--- NOTE | 2019-05-13 | NUR ---
ED Nurse Note: PT SENT UP WITH, RO SWANSON AND MILDRED EMT. PT ON WASTEWATER MANAGER. PT DENIES PAIN AT THIS TIME. PT SHOWS NO ACUTE SIGNS OF DISTRESS. PT BELONGINGS SENT UP WITH PT.
[2019-05-13 07:23] LABS: BASOPHILS % (AUTO) 0.6 % (0.0-2.0); EOSINOPHILS % (AUTO) 2.6 % (0.0-3.0); HEMOGLOBIN 11.1 G/DL (14.2-18.0); MEAN CORPUSCULAR VOLUME 80 FL (80-99); NEUTROPHILS % (AUTO) 68.8 % (45.0-75.0); PLATELET COUNT 228 K/UL (150-450); RED BLOOD COUNT 4.25 M/UL (4.70-6.10); RED CELL DISTRIBUTION WIDTH 16.7 % (11.6-14.8); WHITE BLOOD COUNT 5.4 K/UL (4.8-10.8)
[2019-05-13 07:43] LABS: ALANINE AMINOTRANSFERASE 10 U/L (12-78); ALBUMIN/GLOBULIN RATIO 0.6 (1.0-2.7); ALKALINE PHOSPHATASE 91 U/L (46-116); ANION GAP 8 mmol/L (5-15); ASPARTATE AMINO TRANSFERASE 9 U/L (15-37); BILIRUBIN,TOTAL 0.2 MG/DL (0.2-1.0); BLOOD UREA NITROGEN 12 mg/dL (7-18); CALCIUM 9.3 MG/DL (8.5-10.1); CARBON DIOXIDE 26 MMOL/L (21-32); CHLORIDE 105 MMOL/L (98-107); CHOLESTEROL 216 MG/DL (< 200); CREATININE 0.9 MG/DL (0.55-1.30); HDL CHOLESTEROL 47 MG/DL (40-60); POTASSIUM 3.5 MMOL/L (3.5-5.1); SODIUM 139 MMOL/L (136-145); TRIGLYCERIDES 126 MG/DL (30-150)
--- NOTE | 2019-05-13 08:01 | NUR ---
NURSE NOTES: Received from Marcia STARR. pT AO X4. Pt in bed awake and checking venous duplex. Bed locked in lowest position. Sinus rhythm noted on gambling monitor. C/o headache and 4-5/10 on pain scale. Will administer pain meds as ordered. No SOB noted. IV IN RAC 20G SL patent and asymptomatic. Will continue to plan of care.
--- NOTE | 2019-05-13 08:01 | NUR ---
HAND-OFF: Report given to RO Blsa.
[2019-05-13] MEDS ORDERED: NORVASC5 MG ORAL (11:30)
[2019-05-13] MEDS ORDERED: ACETAMINOPHEN-1 EAC1 ORAL (11:31)
--- NOTE | 2019-05-13 11:32 | History and Physical ---
History of Present Illness General Date patient seen: May 13, 2019 Reason for Hospitalization: Dizziness Present Illness HPI 48 year old male with hx of hypertension and apparently recent LP presented to ER to get checked out for his dizziness. His BP was mildly elevated. He is admitted for no Good reason at all. Allergies: Coded Allergies: PENICILLINS (Verified Allergy, Unknown, 09/21/18) Medication History Scheduled Amitriptyline HCl (Elavil*), 75 MG ORAL BEDTIME Amlodipine Besylate (Norvasc), 5 MG ORAL DAILY Sumatriptan Succinate* (Imitrex*), 50 MG ORAL DAILY PRN MIGRAINE Discontinued Medications Acetaminophen* (Tylenol Extra Strength*), 500 MG ORAL Q8H PRN for Prn Headache/ Temp > 101 Discontinued Reason: Therapy completed Albuterol Sulfate* (Albuterol Sulfate Mdi*), 2 PUFF INH Q6H Discontinued Reason: Therapy completed Azithromycin* (Zithromax*), 250 MG ORAL DAILY Discontinued Reason: Therapy completed Cholecalciferol (Vitamin D3)* (Vitamin D*), 2,000 UNITS ORAL DAILY, (Reported) Discontinued Reason: Therapy completed Docusate Sodium* (Colace*), 100 MG ORAL TWICE A DAY Discontinued Reason: Therapy completed Guaifenesin/Codeine Phos* (Robitussin Ac*), 5 ML ORAL Q6H PRN for For Cough Discontinued Reason: Therapy completed Lactulose (Lactulose*), 30 ML ORAL, (Reported) Discontinued Reason: Therapy completed Omeprazole Magnesium (Prilosec Otc), 20 MG ORAL DAILY, (Reported) Discontinued Reason: Therapy completed Oseltamivir Phosphate (Tamiflu), 75 MG ORAL TWICE A DAY Discontinued Reason: Therapy completed Prednisone* (Prednisone*), 40 MG ORAL DAILY Discontinued Reason: Therapy completed Warfarin Sod (Coumadin*), 7.5 MG ORAL DAILY, (Reported) Discontinued Reason: Therapy completed Warfarin Sod* (Warfarin Sod*), 2.5 MG ORAL THREE TIMES A WEEK, (Reported) Discontinued Reason: Therapy completed Patient History Healthcare decision maker SELF Resuscitation status Full Code Advanced Directive on File Past Medical/Surgical History Past Medical/Surgical History: (1) Headache (2) Viral syndrome Review of Systems All Other Systems: negative except mentioned in HPI Physical Exam General Appearance: WD/WN, no apparent distress Lines, tubes and drains: peripheral Neck: non-tender, normal alignment Respiratory/Chest: chest wall non-tender, lungs clear Breasts: no masses Cardiovascular/Chest: regular rhythm Abdomen: normal bowel sounds Genitourinary/Rectal: normal genital exam Last 24 Hour Vital Signs Date Time Temp Pulse Resp B/P (MAP) Pulse Ox O2 Delivery O2 Flow Rate FiO2 05/13/19 08:21 73 153/96 05/13/19 08:00 72 05/13/19 08:00 97.9 73 20 153/96 (115) 99 05/13/19 05:01 97.9 17 139/92 (108) 100 05/13/19 04:00 73 05/13/19 00:55 Room Air 05/13/19 00:00 98.7 74 22 157/96 99 Room Air 05/13/19 00:00 97.5 16 158/100 (119) 99 05/13/19 00:00 87 05/12/19 23:35 98.6 69 21 153/95 100 Room Air 05/12/19 22:44 98.2 05/12/19 21:05 79 26 Room Air 05/12/19 21:05 98.2 79 26 166/99 100 Room Air 05/12/19 21:01 98.2 79 26 166/99 (121) 100 Room Air Intake and Output 05/12/19 05/13/19 19:00 07:00 Intake Total 1000 ml Output Total 1 ml Balance 999 ml IV Total 1000 ml Output Urine Total 1 ml Laboratory Tests Test 05/12/19 21:37 05/12/19 23:10 05/13/19 06:05 White Blood Count 7.1 K/UL (4.8-10.8) 5.4 K/UL (4.8-10.8) Red Blood Count 4.48 M/UL (4.70-6.10) L 4.25 M/UL (4.70-6.10) L Hemoglobin 11.7 G/DL (14.2-18.0) L 11.1 G/DL (14.2-18.0) L Hematocrit 34.8 % (42.0-52.0) L 34.0 % (42.0-52.0) L Mean Corpuscular Volume 78 FL (80-99) L 80 FL (80-99) Mean Corpuscular Hemoglobin 26.1 PG (27.0-31.0) L 26.0 PG (27.0-31.0) L Mean Corpuscular Hemoglobin Concent 33.5 G/DL (32.0-36.0) 32.5 G/DL (32.0-36.0) Red Cell Distribution Width 15.6 % (11.6-14.8) H 16.7 % (11.6-14.8) H Platelet Count 266 K/UL (150-450) 228 K/UL (150-450) Mean Platelet Volume 6.0 FL (6.5-10.1) L 6.0 FL (6.5-10.1) L Neutrophils (%) (Auto) 78.9 % (45.0-75.0) H 68.8 % (45.0-75.0) Lymphocytes (%) (Auto) 13.2 % (20.0-45.0) L 19.0 % (20.0-45.0) L Monocytes (%) (Auto) 6.6 % (1.0-10.0) 9.0 % (1.0-10.0) Eosinophils (%) (Auto) 0.7 % (0.0-3.0) 2.6 % (0.0-3.0) Basophils (%) (Auto) 0.6 % (0.0-2.0) 0.6 % (0.0-2.0) Sodium Level 137 MMOL/L (136-145) 139 MMOL/L (136-145) Potassium Level 3.6 MMOL/L (3.5-5.1) 3.5 MMOL/L (3.5-5.1) Chloride Level 100 MMOL/L (98-107) 105 MMOL/L (98-107) Carbon Dioxide Level 30 MMOL/L (21-32) 26 MMOL/L (21-32) Anion Gap 7 mmol/L (5-15) 8 mmol/L (5-15) Blood Urea Nitrogen 14 mg/dL (7-18) 12 mg/dL (7-18) Creatinine 0.9 MG/DL (0.55-1.30) 0.9 MG/DL (0.55-1.30) Estimat Glomerular Filtration Rate > 60 mL/min (>60) > 60 mL/min (>60) Glucose Level 112 MG/DL (74-106) H 93 MG/DL (74-106) Lactic Acid Level 1.30 mmol/L (0.4-2.0) Calcium Level 10.1 MG/DL (8.5-10.1) 9.3 MG/DL (8.5-10.1) Total Bilirubin 0.3 MG/DL (0.2-1.0) 0.2 MG/DL (0.2-1.0) Aspartate Amino Transf (AST/SGOT) 10 U/L (15-37) L 9 U/L (15-37) L Alanine Aminotransferase (ALT/SGPT) 14 U/L (12-78) 10 U/L (12-78) L Alkaline Phosphatase 104 U/L (46-116) 91 U/L (46-116) Total Creatine Kinase 38 U/L (26-308) Creatine Kinase MB < 0.5 NG/ML (0.0-3.6) Creatine Kinase MB Relative Index 1.3 Total Protein 9.1 G/DL (6.4-8.2) H 7.8 G/DL (6.4-8.2) Albumin 3.6 G/DL (3.4-5.0) 3.0 G/DL (3.4-5.0) L Globulin 5.5 g/dL 4.8 g/dL Albumin/Globulin Ratio 0.7 (1.0-2.7) L 0.6 (1.0-2.7) L Lipase 160 U/L (73-393) Urine Color Pale yellow Urine Appearance Clear Urine pH 7 (4.5-8.0) Urine Specific [place] 1.010 (1.005-1.035) Urine Protein Negative (NEGATIVE) Urine Glucose (UA) Negative (NEGATIVE) Urine Ketones Negative (NEGATIVE) Urine Blood Negative (NEGATIVE) Urine Nitrite Negative (NEGATIVE) Urine Bilirubin Negative (NEGATIVE) Urine Urobilinogen Normal MG/DL (0.0-1.0) Urine Leukocyte Esterase Negative (NEGATIVE) Triglycerides Level 126 MG/DL (30-150) Cholesterol Level 216 MG/DL (< 200) H LDL Cholesterol 145 mg/dL (<100) H HDL Cholesterol 47 MG/DL (40-60) Cholesterol/HDL Ratio 4.6 (3.3-4.4) H Thyroid Stimulating Hormone (TSH) 2.555 uiU/mL (0.358-3.740) Height (Feet): 5 Height (Inches): 8.00 Weight (Pounds): 165 Medications Current Medications Medications (Trade) Dose Ordered Sig/Mickie Route PRN Reason Start Time Stop Time Status Last Admin Dose Admin Acetaminophen (Tylenol) 650 mg Q4H PRN ORAL fever 05/12/19 23:00 06/11/19 22:59 Amlodipine Besylate (Norvasc) 5 mg DAILY ORAL 05/13/19 09:00 06/12/19 08:59 05/13/19 08:21 Dextrose (Dextrose 50%) STAT PRN IV Hypoglycemia 05/12/19 23:00 06/11/19 22:59 Lorazepam (Ativan 2mg/ml 1ml) 0.5 mg Q4H PRN IV For Anxiety 05/12/19 23:00 05/19/19 22:59 Morphine Sulfate (Morphine Sulfate) 1 mg Q4H PRN IVP For Pain 05/12/19 23:00 05/19/19 22:59 05/13/19 08:22 Ondansetron HCl (Zofran) 4 mg Q6H PRN IVP Nausea & Vomiting 05/12/19 23:00 06/11/19 22:59 Polyethylene Glycol (Miralax) 17 gm HSPRN PRN ORAL Constipation 05/12/19 23:00 06/11/19 22:59 Zolpidem Tartrate (Ambien) 5 mg HSPRN PRN ORAL Insomnia 05/12/19 23:00 05/19/19 22:59 Assessment/Plan Problem List: (1) Uncontrolled hypertension ICD Codes: I10 - Essential (primary) hypertension SNOMED: 45458931, [id number] (2) Headache ICD Codes: R51 - Headache SNOMED: 87972245, [id number] Assessment/Plan: pts bp is around 150, can be fine tuned as outpatient. Cecil Salguero MD May 13, 2019 11:32
--- NOTE | 2019-05-13 11:36 | NUR ---
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 PT seen at [facility] 2 days ago for same reason. SI: Hypertensive malignancy/headache VS: BP: 166/99 HR: 79 RR 26 02 Sat 100% (RA) T: 98.2 NT: RBC 4.48 Total protein 9.1 AST/SGOT 10 CT head: negative IS: NS 1000ml Admitted to Telemetry Telemetry status DCP: Pending Hospital Stay
--- NOTE | 2019-05-13 12:16 | Diagnostic Imaging Report ---
Indication: Chest pain Technique: Single AP view of the chest. Comparison: Chest radiograph dated 12/15/2018 Findings: The cardiomediastinal silhouette is within normal limits. No new airspace consolidation. No pleural fluid. No pneumothorax. No acute osseous abnormality. IMPRESSION: No radiographic evidence of acute cardiopulmonary disease.
--- NOTE | 2019-05-13 12:25 | NUR ---
NURSE NOTES: Noted discharge order from Dr. Salguero but the pt still c/o headache / and does not want to discharge if headache and high bp not subsided. Dr. Salguero reported. Tylenol #3 1tab ordered for headache. and for bp 151/80 still okay to discharge home per dr. Salguero
[2019-05-13] MEDS ORDERED: Tylenol #3 tab (300mg/30mg) ORAL SCH (12:30)
--- NOTE | 2019-05-13 14:20 | NUR ---
NURSE NOTES: Patient still c/o headache 5/10 after Tylenol #[address] Salguero aware and Motrin 600mg pox1 ordered and carried out. His bp still 152/[address] Salguero it's okay to discharge home.
--- NOTE | 2019-05-13 17:00 | History and Physical Report ---
DATE OF ADMISSION: 05/12/2019 CONSULTANTS: 1. Bharat Thomas M.D. 2. Cecil Salguero M.D. CHIEF COMPLAINT: Headache and weakness. BRIEF HISTORY: This is a 48-year-old male, who lives at home, presented to [facility] last night with history of severe headache and weakness. He had nausea, but no vomiting. The patient is slightly weak all over and no chest pain or shortness of breath. The patient came to [facility], diagnosed with the above, admitted to telemetry for further care. Currently, slightly anxious in bed, complaining headache /, no complaint. REVIEW OF SYSTEMS: No chest pain. No shortness of breath. No nausea, vomiting, or diarrhea. PAST MEDICAL HISTORY: Nothing. PAST SURGICAL HISTORY: None. MEDICATIONS: Include ibuprofen, amlodipine, morphine, Zofran, zolpidem, lorazepam, ketorolac, and Reglan. ALLERGIES: Penicillin. SOCIAL HISTORY: No smoking. No alcohol. No intravenous drug abuse. FAMILY HISTORY: Noncontributory. PHYSICAL EXAMINATION: GENERAL: Calm in bed, oriented x3, in slight distress secondary to pain. VITAL SIGNS: Temperature 97 degrees, pulse 80, respirations 20, and blood pressure 153/97. CARDIOVASCULAR: No murmurs. LUNGS: Poor air exchange. ABDOMEN: Bowel sounds distant. EXTREMITIES: No cyanosis, clubbing, or edema. NEUROLOGIC: The patient moves all extremities, slightly weak. LABORATORY DATA: Labs, at this time, show hemoglobin 11, otherwise CBC is normal. BMP shows AST 9 and ALT 10, otherwise normal. Cholesterol is 216. Urinalysis is negative. ASSESSMENT: 1. Headache. 2. Weakness. 3. Anemia. 4. Hypertension. 5. Nausea. PLAN: 1. Pain control. 2. Antiemetics p.r.n. 3. Dietary followup. 4. Blood pressure control. 5. We will have Cardiology and Neurology, Dr. Vazquez and Dr. Thomas to evaluate. Jarret Ge D.O. DR: TIERNEY JOB#: [id number] CC:
--- NOTE | 2019-05-13 17:30 | NUR ---
NURSE NOTES: Pt still c/o headache 01/08 but he refused more pain meds for pain. Dr. Thomas came and cleared neurologically. Dr. Thomas ordered Motrin 400mg po TID PRN for headache for discharge meds.
[2019-05-13] MEDS ORDERED: IBUPROFEN400 MG ORAL ×2 (18:19→18:22)
--- NOTE | 2019-05-13 18:24 | Cardiology Progress Note ---
Assessment/Plan Assessment/Plan The patient is seen and examined, full consult note is dictated. Objective Last 24 Hour Vital Signs Date Time Temp Pulse Resp B/P (MAP) Pulse Ox O2 Delivery O2 Flow Rate FiO2 05/13/19 16:00 97.5 72 22 154/93 (113) 100 05/13/19 14:12 97.7 80 20 152/97 (115) 99 05/13/19 12:00 97.7 75 20 151/92 (111) 99 05/13/19 12:00 69 05/13/19 09:00 Room Air 05/13/19 08:21 73 153/96 05/13/19 08:00 72 05/13/19 08:00 97.9 73 20 153/96 (115) 99 05/13/19 05:01 97.9 17 139/92 (108) 100 05/13/19 04:00 73 05/13/19 00:55 Room Air 05/13/19 00:00 98.7 74 22 157/96 99 Room Air 05/13/19 00:00 97.5 16 158/100 (119) 99 05/13/19 00:00 87 05/12/19 23:35 98.6 69 21 153/95 100 Room Air 05/12/19 22:44 98.2 05/12/19 21:05 79 26 Room Air 05/12/19 21:05 98.2 79 26 166/99 100 Room Air 05/12/19 21:01 98.2 79 26 166/99 (121) 100 Room Air Intake and Output 05/12/19 05/13/19 19:00 07:00 Intake Total 1000 ml Output Total 1 ml Balance 999 ml IV Total 1000 ml Output Urine Total 1 ml Laboratory Tests Test 05/12/19 21:37 05/12/19 23:10 05/13/19 06:05 White Blood Count 7.1 K/UL (4.8-10.8) 5.4 K/UL (4.8-10.8) Red Blood Count 4.48 M/UL (4.70-6.10) L 4.25 M/UL (4.70-6.10) L Hemoglobin 11.7 G/DL (14.2-18.0) L 11.1 G/DL (14.2-18.0) L Hematocrit 34.8 % (42.0-52.0) L 34.0 % (42.0-52.0) L Mean Corpuscular Volume 78 FL (80-99) L 80 FL (80-99) Mean Corpuscular Hemoglobin 26.1 PG (27.0-31.0) L 26.0 PG (27.0-31.0) L Mean Corpuscular Hemoglobin Concent 33.5 G/DL (32.0-36.0) 32.5 G/DL (32.0-36.0) Red Cell Distribution Width 15.6 % (11.6-14.8) H 16.7 % (11.6-14.8) H Platelet Count 266 K/UL (150-450) 228 K/UL (150-450) Mean Platelet Volume 6.0 FL (6.5-10.1) L 6.0 FL (6.5-10.1) L Neutrophils (%) (Auto) 78.9 % (45.0-75.0) H 68.8 % (45.0-75.0) Lymphocytes (%) (Auto) 13.2 % (20.0-45.0) L 19.0 % (20.0-45.0) L Monocytes (%) (Auto) 6.6 % (1.0-10.0) 9.0 % (1.0-10.0) Eosinophils (%) (Auto) 0.7 % (0.0-3.0) 2.6 % (0.0-3.0) Basophils (%) (Auto) 0.6 % (0.0-2.0) 0.6 % (0.0-2.0) Sodium Level 137 MMOL/L (136-145) 139 MMOL/L (136-145) Potassium Level 3.6 MMOL/L (3.5-5.1) 3.5 MMOL/L (3.5-5.1) Chloride Level 100 MMOL/L (98-107) 105 MMOL/L (98-107) Carbon Dioxide Level 30 MMOL/L (21-32) 26 MMOL/L (21-32) Anion Gap 7 mmol/L (5-15) 8 mmol/L (5-15) Blood Urea Nitrogen 14 mg/dL (7-18) 12 mg/dL (7-18) Creatinine 0.9 MG/DL (0.55-1.30) 0.9 MG/DL (0.55-1.30) Estimat Glomerular Filtration Rate > 60 mL/min (>60) > 60 mL/min (>60) Glucose Level 112 MG/DL (74-106) H 93 MG/DL (74-106) Lactic Acid Level 1.30 mmol/L (0.4-2.0) Calcium Level 10.1 MG/DL (8.5-10.1) 9.3 MG/DL (8.5-10.1) Total Bilirubin 0.3 MG/DL (0.2-1.0) 0.2 MG/DL (0.2-1.0) Aspartate Amino Transf (AST/SGOT) 10 U/L (15-37) L 9 U/L (15-37) L Alanine Aminotransferase (ALT/SGPT) 14 U/L (12-78) 10 U/L (12-78) L Alkaline Phosphatase 104 U/L (46-116) 91 U/L (46-116) Total Creatine Kinase 38 U/L (26-308) Creatine Kinase MB < 0.5 NG/ML (0.0-3.6) Creatine Kinase MB Relative Index 1.3 Total Protein 9.1 G/DL (6.4-8.2) H 7.8 G/DL (6.4-8.2) Albumin 3.6 G/DL (3.4-5.0) 3.0 G/DL (3.4-5.0) L Globulin 5.5 g/dL 4.8 g/dL Albumin/Globulin Ratio 0.7 (1.0-2.7) L 0.6 (1.0-2.7) L Lipase 160 U/L (73-393) Urine Color Pale yellow Urine Appearance Clear Urine pH 7 (4.5-8.0) Urine Specific [place] 1.010 (1.005-1.035) Urine Protein Negative (NEGATIVE) Urine Glucose (UA) Negative (NEGATIVE) Urine Ketones Negative (NEGATIVE) Urine Blood Negative (NEGATIVE) Urine Nitrite Negative (NEGATIVE) Urine Bilirubin Negative (NEGATIVE) Urine Urobilinogen Normal MG/DL (0.0-1.0) Urine Leukocyte Esterase Negative (NEGATIVE) Triglycerides Level 126 MG/DL (30-150) Cholesterol Level 216 MG/DL (< 200) H LDL Cholesterol 145 mg/dL (<100) H HDL Cholesterol 47 MG/DL (40-60) Cholesterol/HDL Ratio 4.6 (3.3-4.4) H Thyroid Stimulating Hormone (TSH) 2.555 uiU/mL (0.358-3.740) Michael Vazquez MD May 13, 2019 18:24
--- NOTE | 2019-05-13 18:30 | Consultation ---
Consult Note Consult Note NEUROLOGY CONSULTATION: Full note dictated #[id number] 48-year-old, right-handed, black gentleman, with a relatively benign past history. Approximately 2 months ago he developed valley fever with a cough and generalized weakness. He was treated with fluconazole given for 2 months for it. When he was being evaluated for his illness a lumbar puncture was done and following the lumbar puncture he developed a low pressure headache. The low pressure headache did not go away with conservative treatment as a result of which a blood patch was placed. Then approximately 15 days ago he started to have progressively worsening headaches. The headaches would usually start off as neck tightness and then spread anteriorly to the forehead. At times the headache would be left-sided and at other times right-sided. He denies any associated nausea or vomiting. He also denies any other neurological symptoms. Yesterday his headache was much worse and as result of that he presented to the [facility] emergency room. His blood pressure was also significantly elevated when he was evaluated in the emergency room. ON EXAMINATION: G 1/4 cervical paraspinal muscle and trapezius spasm. Mild problems with memory. Cranial nerves normal. Motor examination normal. Sensory examination normal. Reflexes globally diminished. Coordination normal. Normal stance and gait. IMPRESSION: Recent coccidiomycosis Recent low pressure headache treated with blood patch. Present headaches seem to be muscle contraction headaches with possibly a component of hypertensive headaches. No significant neurological dysfunction. RECOMMENDATIONS: Ibuprofen 400 mg 3 times a day for the next 5 days. Blood pressure control in the equal to less than 120/80 range at all times. Bharat Thomas M.D., M.S.P.H. Bharat Thomas MD May 13, 2019 18:30
[2019-05-13] MEDS ORDERED: Losartan 25mg tab ORAL SCH ×2 (18:45→20:45)
--- NOTE | 2019-05-13 19:50 | NUR ---
NURSE NOTES: Received pt and report from RO Elizondo. Observed pt resting in bed with family member at bedside. Pt is ready for discharge. Belongings list checked and accounted. 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 Discharge paperwork and teachings completed by RO Elizondo. Will continue plan of care until pt discharge home.
--- NOTE | 2019-05-13 20:00 | NUR ---
HAND-OFF: Report given to Gena RN. Pt remains stable.
--- NOTE | 2019-05-13 20:15 | NUR ---
NURSE NOTES: Contacted Dr. Vazquez regarding pt's BP of 178/107. Dr. Vazquez ordered one time dose of Losartan 25mg PO now, Losartan 50mg PO daily, and Clonidine 0.1mg TID PRN for SBP >160
--- NOTE | 2019-05-13 20:18 | NUR ---
NURSE NOTES: Pt was ready for discharge and while walking to the elevator, pt felt dizzy. Made pt sit down and rechecked BP which was 178/107. Contacted Dr. Cui regarding pt's condition. Dr. cui cancelled discharged order and to contact Dr. Vazquez for orders.
--- NOTE | 2019-05-13 23:15 | Consultation ---
DATE OF CONSULTATION: 05/13/2019 NEUROLOGY CONSULTATION CONSULTING PHYSICIAN: Bharat Thomas M.D. REQUESTING PHYSICIAN: Jarret Ge D.O. HISTORY: Mr. Vernon Espinosa is a 48-year-old, right-handed, black gentleman, with a relatively benign past history. Approximately 2 months ago, he developed valley fever with a cough and generalized weakness. He was treated with fluconazole for approximately two months for it. While he was being evaluated for his illness, a lumbar puncture was done and following the lumbar puncture, he developed a low-pressure headache. The low-pressure headache did not go away with conservative treatment and as a result of which, a blood patch had to be placed. The lumbar puncture did not reveal any signs of meningitis. He did relatively well following his blood patch, but then approximately 15 days ago, he started to have progressively worsening headaches. The headaches would usually start of in the back of his head and neck in the form of tightness and would then spread anteriorly to his forehead. At times, the headaches would be left-sided and at other times, right-sided. From time to time, he would also have a generalized headache with some throbbing sensation. He denies any associated nausea or vomiting. He also denies any other neurological symptoms. He has not noticed any weakness, numbness, blurry vision, double vision, problems with speech, problems with language, or other neurological symptoms. On May 12, 2019, his headache was much worse and as a result of that, he presented to the [facility] emergency room. When he was evaluated in the emergency room, his blood pressure was significantly elevated. Since then, he has been started on treatment for blood pressure, but his blood pressures are still running in the 150s systolic. At this point in time, he does have mild generalized headache involving his occipital area more than his frontal area. He, however, does not have any change in his headache with change in his posture. 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 FAMILY HISTORY: High blood pressure runs in his family. His mother has significant high blood pressure. PERSONAL HISTORY: Home: He lives with his daughter. 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 Habits: He denies the use of alcohol, tobacco, or illicit drugs. PRESENT MEDICATIONS: Include Norvasc, Tylenol p.r.n., morphine p.r.n., MiraLAX p.r.n., Zofran p.r.n., Ambien p.r.n., and Ativan p.r.n. He did get ibuprofen earlier today. He also got Tylenol #3 earlier today. PHYSICAL EXAMINATION: GENERAL: He is a well-developed, well-nourished, pleasant black gentleman, lying in bed, in no acute distress. VITAL SIGNS: Pulse 72/minute, blood pressure 154/93 mmHg, respirations 22/minute, and temperature 97.5 degrees Fahrenheit. HEAD: Normocephalic and atraumatic. EENT: Examination benign. NECK: No neck rigidity was observed. He did have G 1/4 cervical paraspinal muscle and trapezius spasm. NEUROLOGICAL EXAMINATION: MENTAL STATUS EXAMINATION: He was awake and alert. He was oriented to person, place, and time with minimal hints. He was able to recall 3/3 words immediately after 1 minute, and after 3 minutes. He was able to remember presidents, Trump through [place]. His mathematical skills were fairly good. His visuospatial function was preserved. SPEECH: He had no dysarthria. LANGUAGE: He had no aphasia. CRANIAL NERVE EXAMINATION: II: The visual barajas were intact on confrontation testing. III, IV & : The external ocular movements were full and the pupils 3 mm in diameter, equal, round, regular, and reactive to light. V: He had normal facial sensations, and the temporales, masseters, and pterygoids functioned normally. VII: He had normal facial expressions and no facial asymmetry. VIII: He was able to hear well bilaterally and had no nystagmus. IX: The palate moved symmetrically on phonation. X: He had no hoarseness of voice. XI: The sternocleidomastoids and trapezii functioned normally. XII: The tongue was in the midline without any fasciculations or atrophy. MOTOR SYSTEM: The tone was normal in all four extremities. Examination of muscle mass revealed no focal wasting. Examination of power revealed G 5/5 power in all muscle groups tested. SENSORY EXAMINATION: He had intact sensations to pinprick, light touch, and graphesthesia. COORDINATION: He performed well on yqefvb-aj-jefe and cfwz-vh-lkqa testing. On Romberg test, he swayed, but did not fall to one side or the other. REFLEXES: 1+ and bilaterally symmetrical at the biceps, triceps, brachioradialis, and knees, trace+ at both ankles. The plantar responses were flexor bilaterally. STANCE: He had a normal stance. GAIT: He had a normal gait. DIAGNOSTIC IMPRESSION: 1. Mr. 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 A lumbar puncture at that time was benign, but following the lumbar puncture, he developed a low-pressure headache and had to be treated with a blood patch. Approximately 15 days ago, he started to have progressively worsening headaches. 2. On neurological examination at this time, he does have G 1/4 cervical paraspinal muscle and trapezius spasm, minimal memory problems, but the rest of his neurological examination is benign. His blood pressures, however, are significantly elevated. 3. A CT scan of the brain without contrast performed on May 12, 2019 is benign. 4. A CBC revealed that he is anemic with a hemoglobin of 11.1 G. His chemistry panel is relatively benign. His lipid panel reveals a dyslipidemia with a total cholesterol of 216 and LDL of 145. His TSH is normal at 2.55. His urinalysis is benign. 5. The patient's history, neurological examination, laboratory data, and imaging studies are most consistent with presently muscle contraction headaches with possibly a component of hypertensive headaches. RECOMMENDATIONS: 1. Agree with management thus far. 2. The patient's blood pressure should be brought down into the physiological range that is < 120/80 mmHg at all times. 3. He will be started on ibuprofen 400 mg three times a day for the next 5 days to help him with his muscle contraction headaches. 4. He was encouraged to see his Infectious Disease doctor to ascertain that his coccidioidomycosis has been fully treated. Thank you for entrusting me with the care of Mr. Espinosa. I shall follow him with you. Bharat Thomas M.D., M.S.P.H. DR: BERKLEY JOB#: [id number] JAXON
--- NOTE | 2019-05-13 23:30 | Consultation ---
DATE OF CONSULTATION: 05/13/2019 CARDIOLOGY CONSULTATION CONSULTING PHYSICIAN: Michael Vazquez M.D. REFERRING PHYSICIAN: Jarret Ge D.O. REASON FOR CONSULTATION: Management of hypertensive crisis. HISTORY OF PRESENT ILLNESS: The patient is a very unfortunate 48-year-old gentleman, who presents to the hospital for evaluation of headaches. Apparently, the patient [facility] fever. He had lumbar puncture performed in that facility and he claims that following the lumbar puncture, he had significant headache in the temporal area. Due to elevated blood pressure, he was given blood pressure patch, which he wore for about 7 days. However, he started to have a rebound blood pressure just about a couple of days ago. At the time of arrival to the hospital, the patient denied any chest pain or shortness of breath. He does not have any risk factors for coronary artery disease. Initial blood pressure at the time of arrival to this facility was 166/99 mmHg and heart rate of 79. A 12-lead electrocardiogram in the emergency department showed sinus rhythm at a rate of 66 with no acute ischemic features. There was no evidence of LVH. PAST MEDICAL HISTORY: Left leg DVT in 2018. Completed anticoagulation therapy for about a year. PAST SURGICAL HISTORY: None. ALLERGIES: Penicillin. FAMILY HISTORY: No premature coronary artery disease in the first-degree relatives. REVIEW OF SYSTEMS: A 12-system review done essentially negative except what is mentioned in the history of present illness. LIST OF MEDICATIONS AT HOME: Includes acetaminophen #3 one tablet q.4 hours p.r.n. pain for 10 days, Elavil 75 mg p.o. at bedtime, amlodipine 5 mg p.o. daily, ibuprofen 400 mg three times a day p.r.n. pain, and Imitrex 50 mg daily p.r.n. migraine headache. SOCIAL HISTORY: Denies any tobacco, alcohol, or illicit drug use. PHYSICAL EXAMINATION: VITAL SIGNS: Blood pressure was 166/99, respirations 26, pulse of 79, temperature 98.2 degrees Fahrenheit, and O2 saturation 100% on room air. GENERAL: This is a very unfortunate 48-year-old gentleman, in no apparent respiratory distress. Alert and oriented x4. HEENT: Atraumatic and normocephalic. Anicteric. Pupils are equal, round, and reactive to light and accommodation. Extraocular muscles intact. NECK: JVP is less than 5 cm. No carotid bruit. Carotid upstrokes 2+ bilaterally. CARDIOVASCULAR: Normal S1, S2. Regular rate and rhythm. No murmurs, gallops, or rubs. PMI is at fourth intercostal space in the midclavicular line. LUNGS: Clear to auscultation bilaterally. ABDOMEN: Soft, nontender, and nondistended. No hepatosplenomegaly. Positive bowel sounds. EXTREMITIES: No evidence of edema, clubbing, or cyanosis. IMAGING STUDIES: Chest x-ray showed no radiographic evidence of acute cardiopulmonary disease. CT of head, no evidence of intracranial pathology. LABORATORY FINDINGS: WBC 7.1, hemoglobin 11.7, hematocrit of 34.8, and platelet count is 266,000. Sodium 137, potassium is 3.6, chloride 100, bicarbonate 30, BUN of 14, creatinine 0.9, glucose 112, and calcium is 10.1. Total cholesterol is 216. LDL was 145. HDL of 47. ASSESSMENT/PLAN: This patient is a very unfortunate 48-year-old gentleman seen in Cardiology consultation. 1. Hypertension, stage II. I will agree with the amlodipine 5 mg daily. I would like to add losartan 25 mg p.o. daily as blood pressure is still elevated at 154/93 mmHg, which is stage II. I would like to order 2D echocardiography for assessment of cardiomyopathy evaluation of LVH and cardiac filling pressures. 2. Further diagnostic and therapeutic decision will be based on the results of 2D echocardiography. 3. History of left leg DVT. Completed 12 months of anticoagulation therapy. 4. Headaches most likely post LP, resolving. Continue Neurology followup. I would like to thank, Dr. Ge, for allowing me to participate in the care of this patient. Michael Vazquez M.D. DR: ALEC JOB#: [id number] CC:
[2019-05-14] VITALS: BP 141/90
--- NOTE | 2019-05-14 02:27 | NUR ---
NURSE NOTES: Still awaiting call from fiber locking supervisor at [facility]. Nurse order processing manager, Caro called and spoke to fiber locking supervisor, Bryce whom said to call back in 15 mins. Addendum: 05/14/19 at 0259 by Evelyn Gonzales Mai, RN WRONG PATIENT
[2019-05-14 04:00] VITALS: BP 135/89
[2019-05-14 07:23] LABS: BASOPHILS % (AUTO) 0.5 % (0.0-2.0); EOSINOPHILS % (AUTO) 3.7 % (0.0-3.0); HEMATOCRIT 35.1 % (42.0-52.0); HEMOGLOBIN 11.6 G/DL (14.2-18.0); LYMPHOCYTES % (AUTO) 22.3 % (20.0-45.0); MEAN CORPUSCULAR VOLUME 80 FL (80-99); MONOCYTES % (AUTO) 8.1 % (1.0-10.0); NEUTROPHILS % (AUTO) 65.4 % (45.0-75.0); PLATELET COUNT 263 K/UL (150-450); RED CELL DISTRIBUTION WIDTH 16.9 % (11.6-14.8); WHITE BLOOD COUNT 4.3 K/UL (4.8-10.8)
[2019-05-14 07:29] LABS: ANION GAP 8 mmol/L (5-15); BLOOD UREA NITROGEN 8 mg/dL (7-18); CALCIUM 9.6 MG/DL (8.5-10.1); CARBON DIOXIDE 30 MMOL/L (21-32); CHLORIDE 102 MMOL/L (98-107); POTASSIUM 3.3 MMOL/L (3.5-5.1); SODIUM 139 MMOL/L (136-145)
--- NOTE | 2019-05-14 07:51 | NUR ---
HAND-OFF: Report given to RO Underwood.
[2019-05-14 08:00] VITALS: BP_SYST 125; BP_SYST 154; BP_DIAS 90; BP_DIAS 94
[2019-05-14] MEDS ORDERED: Losartan 25mg tab ORAL SCH (09:00)
[2019-05-14] MEDS: Losartan 50mg tab ORAL SCH (10:12)
--- NOTE | 2019-05-14 10:29 | General Progress Note ---
Assessment/Plan Problem List: (1) Headache ICD Codes: R51 - Headache SNOMED: 95242807, [id number] (2) Uncontrolled hypertension ICD Codes: I10 - Essential (primary) hypertension SNOMED: 49844252, [id number] Status: stable, progressing Assessment/Plan: bp pain control cbc bmp am dc plan Subjective Constitutional: Reports: weakness Allergies: Coded Allergies: PENICILLINS (Verified Allergy, Unknown, 09/21/18) All Systems: reviewed and negative except above Subjective sl head ache Objective Last 24 Hour Vital Signs Date Time Temp Pulse Resp B/P (MAP) Pulse Ox O2 Delivery O2 Flow Rate FiO2 05/14/19 10:15 75 154/94 05/14/19 10:12 154/94 05/14/19 08:00 98.4 75 20 154/94 (114) 100 05/14/19 04:00 66 05/14/19 04:00 97.3 72 20 135/89 (104) 100 05/14/19 00:00 67 05/14/19 00:00 97.3 73 18 141/90 (107) 100 05/13/19 21:10 158/89 05/13/19 21:00 Room Air 05/13/19 20:00 97.2 76 20 152/93 (112) 100 05/13/19 20:00 71 05/13/19 18:47 151/97 05/13/19 16:00 97.5 72 22 154/93 (113) 100 05/13/19 16:00 63 05/13/19 14:12 97.7 80 20 152/97 (115) 99 05/13/19 12:00 97.7 75 20 151/92 (111) 99 05/13/19 12:00 69 Intake and Output 05/13/19 05/14/19 19:00 07:00 Intake Total 490 ml 300 ml Balance 490 ml 300 ml Intake Oral 490 ml 300 ml # Voids 3 3 Laboratory Tests 05/14/19 06:21: White Blood Count 4.3L, Red Blood Count 4.40L, Hemoglobin 11.6L, Hematocrit 35.1L, Mean Corpuscular Volume 80, Mean Corpuscular Hemoglobin 26.4L, Mean Corpuscular Hemoglobin Concent 33.1, Red Cell Distribution Width 16.9H, Platelet Count 263, Mean Platelet Volume 6.5, Neutrophils (%) (Auto) 65.4, Lymphocytes (%) (Auto) 22.3, Monocytes (%) (Auto) 8.1, Eosinophils (%) (Auto) 3.7H, Basophils (%) (Auto) 0.5, Sodium Level 139, Potassium Level 3.3L, Chloride Level 102, Carbon Dioxide Level 30, Anion Gap 8, Blood Urea Nitrogen 8 , Creatinine 1.0, Estimat Glomerular Filtration Rate > 60, Glucose Level 121H, Calcium Level 9.6 Height (Feet): 5 Height (Inches): 8.00 Weight (Pounds): 164 General Appearance: alert EENT: normal ENT inspection Neck: normal alignment Cardiovascular: normal peripheral pulses, normal rate, regular rhythm Respiratory/Chest: chest wall non-tender, lungs clear, normal breath sounds Abdomen: normal bowel sounds, non tender, soft Extremities: normal inspection Edema: no edema noted Arm (L), no edema noted Arm (R), no edema noted Leg (L), no edema noted Leg (R), no edema noted Pedal (L), no edema noted Pedal (R), no edema noted Generalized Neurologic: responsive, motor weakness Skin: normal pigmentation, warm/dry Jarret Ge DO May 14, 2019 10:29
[2019-05-14] MEDS ORDERED: COZAAR50 MG ORAL (10:58)
--- NOTE | 2019-05-14 10:59 | Pulmonology Progress Note ---
Assessment/Plan Problems: (1) Uncontrolled hypertension (2) Headache Assessment/Plan BP better neuro saw him and ordered Motrin dc home with f/u with primary physician Subjective ROS Limited/Unobtainable: No Constitutional: Reports: no symptoms HEENT: Repors: no symptoms Cardiovascular: Reports: no symptoms Allergies: Coded Allergies: PENICILLINS (Verified Allergy, Unknown, 09/21/18) Objective Last 24 Hour Vital Signs Date Time Temp Pulse Resp B/P (MAP) Pulse Ox O2 Delivery O2 Flow Rate FiO2 05/14/19 10:15 75 154/94 05/14/19 10:12 154/94 05/14/19 08:00 98.4 75 20 154/94 (114) 100 05/14/19 04:00 66 05/14/19 04:00 97.3 72 20 135/89 (104) 100 05/14/19 00:00 67 05/14/19 00:00 97.3 73 18 141/90 (107) 100 05/13/19 21:10 158/89 05/13/19 21:00 Room Air 05/13/19 20:00 97.2 76 20 152/93 (112) 100 05/13/19 20:00 71 05/13/19 18:47 151/97 05/13/19 16:00 97.5 72 22 154/93 (113) 100 05/13/19 16:00 63 05/13/19 14:12 97.7 80 20 152/97 (115) 99 05/13/19 12:00 97.7 75 20 151/92 (111) 99 05/13/19 12:00 69 Intake and Output 05/13/19 05/14/19 19:00 07:00 Intake Total 490 ml 300 ml Balance 490 ml 300 ml Intake Oral 490 ml 300 ml # Voids 3 3 General Appearance: WD/WN HEENT: normocephalic, atraumatic Respiratory/Chest: chest wall non-tender, lungs clear, normal breath sounds Cardiovascular: normal peripheral pulses, normal rate Abdomen: normal bowel sounds, soft, non tender Genitourinary: normal external genitalia Skin: no lesions Neurologic/Psychiatric: revenue specialist II-XII grossly normal Lymphatic: no neck adenopathy Microbiology Date/Time Source Procedure Growth Status 05/12/19 21:37 Blood Blood Culture - Preliminary NO GROWTH AFTER 24 HOURS Resulted 05/12/19 21:20 Blood Blood Culture - Preliminary NO GROWTH AFTER 24 HOURS Resulted Laboratory Tests 05/14/19 06:21: White Blood Count 4.3L, Red Blood Count 4.40L, Hemoglobin 11.6L, Hematocrit 35.1L, Mean Corpuscular Volume 80, Mean Corpuscular Hemoglobin 26.4L, Mean Corpuscular Hemoglobin Concent 33.1, Red Cell Distribution Width 16.9H, Platelet Count 263, Mean Platelet Volume 6.5, Neutrophils (%) (Auto) 65.4, Lymphocytes (%) (Auto) 22.3, Monocytes (%) (Auto) 8.1, Eosinophils (%) (Auto) 3.7H, Basophils (%) (Auto) 0.5, Sodium Level 139, Potassium Level 3.3L, Chloride Level 102, Carbon Dioxide Level 30, Anion Gap 8, Blood Urea Nitrogen 8 , Creatinine 1.0, Estimat Glomerular Filtration Rate > 60, Glucose Level 121H, Calcium Level 9.6 Current Medications Medications (Trade) Dose Ordered Sig/Mickie Route PRN Reason Start Time Stop Time Status Last Admin Dose Admin Acetaminophen (Tylenol) 650 mg Q4H PRN ORAL fever 05/12/19 23:00 06/11/19 22:59 Amlodipine Besylate (Norvasc) 5 mg DAILY ORAL 05/13/19 09:00 06/12/19 08:59 05/14/19 10:15 Clonidine HCl (Catapres Tab) 0.1 mg Q8H PRN ORAL For High Blood Pressure 05/13/19 20:30 06/12/19 20:29 Dextrose (Dextrose 50%) STAT PRN IV Hypoglycemia 05/12/19 23:00 06/11/19 22:59 Lorazepam (Ativan 2mg/ml 1ml) 0.5 mg Q4H PRN IV For Anxiety 05/12/19 23:00 05/19/19 22:59 Losartan Potassium (Cozaar) 50 mg DAILY ORAL 05/14/19 09:00 06/13/19 08:59 05/14/19 10:12 Morphine Sulfate (Morphine Sulfate) 1 mg Q4H PRN IVP For Pain 05/12/19 23:00 05/19/19 22:59 05/13/19 08:22 Ondansetron HCl (Zofran) 4 mg Q6H PRN IVP Nausea & Vomiting 05/12/19 23:00 06/11/19 22:59 Polyethylene Glycol (Miralax) 17 gm HSPRN PRN ORAL Constipation 05/12/19 23:00 06/11/19 22:59 Zolpidem Tartrate (Ambien) 5 mg HSPRN PRN ORAL Insomnia 05/12/19 23:00 05/19/19 22:59 Cecil Salguero MD May 14, 2019 10:59
--- NOTE | 2019-05-14 11:00 | NUR ---
NURSE NOTES: DR CHANEY AT [facility] ,MADE AWARE AND NOTIFIED REGARDING K+ 3.3 , AND PT STILL C/O,S OF DIZZINESS. NO NEW ORDERS NOTED AT THIS TIME. PT HAVING 2-D ECHO AT THIS TIME. WILL CONT TO MONITOR.
[2019-05-14 12:00] VITALS: BP 145/95
--- NOTE | 2019-05-14 15:16 | NUR ---
P.T Note: P.T evaluation completed. Pt is currently functioning independently at baseline. Skilled P.T service is not needed at this time. Thank you for this referral.
[2019-05-14 16:00] VITALS: BP 160/98
--- NOTE | 2019-05-14 18:25 | Neurology Progress Note ---
Interim History Interim History Interim History Mr. Espinosa feels unwell. His discharge was cancelled yesterday as his BP was in the 170s systolic. His blood pressure is still running in the 150s systolic. He continues to have a predominantly occipital headache and neck pain. For some reason his Ibuprofen was discontinued. He denies any new neurologic problems. Review of Systems Neuro Review of Systems Benign. Objective Physical Exam Last Vital Signs Date Time Temp Pulse Resp B/P (MAP) Pulse Ox O2 Delivery O2 Flow Rate FiO2 05/14/19 16:00 97.2 62 18 160/98 (118) 97 05/14/19 09:00 Room Air Laboratory Tests Test 05/14/19 06:21 White Blood Count 4.3 K/UL (4.8-10.8) L Red Blood Count 4.40 M/UL (4.70-6.10) L Hemoglobin 11.6 G/DL (14.2-18.0) L Hematocrit 35.1 % (42.0-52.0) L Mean Corpuscular Volume 80 FL (80-99) Mean Corpuscular Hemoglobin 26.4 PG (27.0-31.0) L Mean Corpuscular Hemoglobin Concent 33.1 G/DL (32.0-36.0) Red Cell Distribution Width 16.9 % (11.6-14.8) H Platelet Count 263 K/UL (150-450) Mean Platelet Volume 6.5 FL (6.5-10.1) Neutrophils (%) (Auto) 65.4 % (45.0-75.0) Lymphocytes (%) (Auto) 22.3 % (20.0-45.0) Monocytes (%) (Auto) 8.1 % (1.0-10.0) Eosinophils (%) (Auto) 3.7 % (0.0-3.0) H Basophils (%) (Auto) 0.5 % (0.0-2.0) Sodium Level 139 MMOL/L (136-145) Potassium Level 3.3 MMOL/L (3.5-5.1) L Chloride Level 102 MMOL/L (98-107) Carbon Dioxide Level 30 MMOL/L (21-32) Anion Gap 8 mmol/L (5-15) Blood Urea Nitrogen 8 mg/dL (7-18) Creatinine 1.0 MG/DL (0.55-1.30) Estimat Glomerular Filtration Rate > 60 mL/min (>60) Glucose Level 121 MG/DL (74-106) H Calcium Level 9.6 MG/DL (8.5-10.1) Neurologic Exam Objective PHYSICAL EXAMINATION: GENERAL: He is a well-developed, well-nourished, pleasant black gentleman, sitting up in a chair, in no acute distress. HEAD: Normocephalic and atraumatic. EENT: Examination benign. NECK: No neck rigidity was observed. He did have G 1/4 cervical paraspinal muscle and trapezius spasm. NEUROLOGICAL EXAMINATION: MENTAL STATUS EXAMINATION: He was awake and alert. He was oriented to person, place, and time with minimal hints. He was able to recall 3/3 words immediately after 1 minute, and after 3 minutes. He was able to remember presidents, Trump through [place] Morris. His mathematical skills were fairly good. His visuospatial function was preserved. SPEECH: He had no dysarthria. LANGUAGE: He had no aphasia. CRANIAL NERVE EXAMINATION: II: The visual barajas were intact on confrontation testing. III, IV & : The external ocular movements were full and the pupils 3 mm in diameter, equal, round, regular, and reactive to light. V: He had normal facial sensations, and the temporales, masseters, and pterygoids functioned normally. VII: He had normal facial expressions and no facial asymmetry. VIII: He was able to hear well bilaterally and had no nystagmus. IX: The palate moved symmetrically on phonation. X: He had no hoarseness of voice. XI: The sternocleidomastoids and trapezii functioned normally. XII: The tongue was in the midline without any fasciculations or atrophy. MOTOR SYSTEM: The tone was normal in all four extremities. Examination of muscle mass revealed no focal wasting. Examination of power revealed G 5/5 power in all muscle groups tested. SENSORY EXAMINATION: He had intact sensations to pinprick, light touch, and graphesthesia. COORDINATION: He performed well on zezhdk-wm-nzis and kebx-ai-kema testing. On Romberg test, he swayed, but did not fall to one side or the other. REFLEXES: 1+ and bilaterally symmetrical at the biceps, triceps, brachioradialis, and knees, trace+ at both ankles. The plantar responses were flexor bilaterally. STANCE: He had a normal stance. GAIT: He had a normal gait. Impression/Recommendations Diagnostic Impression 1. Mr. 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 A lumbar puncture at that time was benign, but following the lumbar puncture, he developed a low-pressure headache and had to be treated with a blood patch. Approximately 15 days ago, he started to have progressively worsening headaches. 2. He feels unwell. His discharge was cancelled yesterday as his BP was in the 170s systolic. His blood pressure is still running in the 150s systolic. He continues to have a predominantly occipital headache and neck pain. For some reason his Ibuprofen was discontinued. He denies any new neurologic problems. 3. On neurological examination at this time, he does have G 1/4 cervical paraspinal muscle and trapezius spasm, minimal memory problems, but the rest of his neurological examination is benign. His blood pressures, however, are significantly elevated. 4. A CT scan of the brain without contrast performed on May 12, 2019 is benign. 5. A CBC revealed that he is anemic with a hemoglobin of 11.1 G. His chemistry panel is relatively benign. His lipid panel reveals a dyslipidemia with a total cholesterol of 216 and LDL of 145. His TSH is normal at 2.55. His urinalysis is benign. 6. The patient's history, neurological examination, laboratory data, and imaging studies are most consistent with presently muscle contraction headaches with possibly a component of hypertensive headaches. Recommendations 1. Continue present management. 2. The patient's blood pressure should be brought down into the physiological range that is < 120/80 mmHg at all times. 3. I will re-order ibuprofen 400 mg three times a day for the next 5 days to help him with his muscle contraction headaches. 4. He will also be started on Flexeril 10 mg q HS. 5. He was encouraged to see his Infectious Disease doctor to ascertain that his coccidioidomycosis has been fully treated. Bharat Thomas M.D., M.S.P.H. Bharat Thomas MD May 14, 2019 18:25
--- NOTE | 2019-05-14 19:35 | NUR ---
HAND-OFF: Report given to .MELISA STARR.
--- NOTE | 2019-05-14 19:45 | NUR ---
NURSE NOTES: Received pt from RO Underwood. Pt is awake and resting in bed. Tolerating room air. Bed locked in lowest position, bed locked, call light within reach. Will continue with plan of care.
[2019-05-14 20:00] VITALS: BP 154/96
[2019-05-14] MEDS ORDERED: Cyclobenzaprine 10mg Tab ORAL SCH (21:00)
[2019-05-15] VITALS: BP 139/89
[2019-05-15 04:00] VITALS: BP 133/81
[2019-05-15 07:24] LABS: ANION GAP 8 mmol/L (5-15); BLOOD UREA NITROGEN 6 mg/dL (7-18); CALCIUM 9.9 MG/DL (8.5-10.1); CARBON DIOXIDE 27 MMOL/L (21-32); CHLORIDE 102 MMOL/L (98-107); CREATININE 0.9 MG/DL (0.55-1.30); POTASSIUM 3.5 MMOL/L (3.5-5.1); SODIUM 137 MMOL/L (136-145)
[2019-05-15 07:29] LABS: BASOPHILS % (AUTO) 0.5 % (0.0-2.0); EOSINOPHILS % (AUTO) 3.8 % (0.0-3.0); HEMATOCRIT 36.6 % (42.0-52.0); LYMPHOCYTES % (AUTO) 20.7 % (20.0-45.0); MEAN CORPUSCULAR VOLUME 80 FL (80-99); MONOCYTES % (AUTO) 8.4 % (1.0-10.0); NEUTROPHILS % (AUTO) 66.7 % (45.0-75.0); PLATELET COUNT 246 K/UL (150-450); RED BLOOD COUNT 4.59 M/UL (4.70-6.10); RED CELL DISTRIBUTION WIDTH 16.6 % (11.6-14.8); WHITE BLOOD COUNT 4.1 K/UL (4.8-10.8)
--- NOTE | 2019-05-15 07:30 | NUR ---
HAND-OFF: Report given to RO Ramírez. Endorsed plan of care.
--- NOTE | 2019-05-15 07:35 | NUR ---
NURSE NOTES: Report received from RO Bobo. Patient AOx4. Sitting at bedside having breakfast. R AC 22g IV patent, flushed, SL. Bed on lowest position, side rails upx2, brakes engaged. Call light within easy reach. Teaching done regarding HTN.
[2019-05-15 08:00] VITALS: BP 141/89
[2019-05-15] MEDS: Losartan 50mg tab ORAL SCH (09:02)
--- NOTE | 2019-05-15 11:18 | Pulmonology Progress Note ---
Assessment/Plan Problems: (1) Uncontrolled hypertension (2) Headache Assessment/Plan BP better neuro saw him and ordered Motrin dc home with f/u with primary physician Subjective ROS Limited/Unobtainable: No Constitutional: Reports: no symptoms HEENT: Repors: no symptoms Respiratory: Reports: no symptoms Allergies: Coded Allergies: PENICILLINS (Verified Allergy, Unknown, 09/21/18) Objective Last 24 Hour Vital Signs Date Time Temp Pulse Resp B/P (MAP) Pulse Ox O2 Delivery O2 Flow Rate FiO2 05/15/19 09:02 141/89 05/15/19 09:02 68 141/89 05/15/19 08:00 68 05/15/19 08:00 98.2 75 18 141/89 (106) 100 05/15/19 04:00 67 05/15/19 04:00 98.0 67 18 133/81 (98) 98 05/15/19 00:00 98.1 62 18 139/89 (106) 99 05/15/19 00:00 62 05/14/19 21:00 Room Air 05/14/19 20:20 97.2 05/14/19 20:00 70 05/14/19 20:00 98.1 70 18 154/96 (115) 99 05/14/19 16:00 97.2 62 18 160/98 (118) 97 05/14/19 16:00 76 05/14/19 12:00 97.7 71 20 145/95 (112) 98 05/14/19 12:00 59 Intake and Output 05/14/19 05/15/19 19:00 07:00 Intake Total 240 ml Balance 240 ml Intake Oral 240 ml # Voids 2 2 General Appearance: WD/WN HEENT: normocephalic, atraumatic Respiratory/Chest: chest wall non-tender, lungs clear Cardiovascular: normal peripheral pulses, normal rate, regular rhythm Abdomen: normal bowel sounds, soft, non tender Extremities: no cyanosis, no clubbing Neurologic/Psychiatric: no motor/sensory deficits Lymphatic: no neck adenopathy Microbiology Date/Time Source Procedure Growth Status 05/12/19 21:37 Blood Blood Culture - Preliminary Staphylococcus Species Resulted 05/12/19 21:20 Blood Blood Culture - Preliminary NO GROWTH AFTER 24 HOURS Resulted Laboratory Tests 05/15/19 06:35: White Blood Count 4.1L, Red Blood Count 4.59L, Hemoglobin 12.0L, Hematocrit 36.6L, Mean Corpuscular Volume 80, Mean Corpuscular Hemoglobin 26.2L, Mean Corpuscular Hemoglobin Concent 32.9, Red Cell Distribution Width 16.6H, Platelet Count 246, Mean Platelet Volume 6.2L, Neutrophils (%) (Auto) 66.7, Lymphocytes (%) (Auto) 20.7, Monocytes (%) (Auto) 8.4, Eosinophils (%) (Auto) 3.8H, Basophils (%) (Auto) 0.5, Sodium Level 137, Potassium Level 3.5, Chloride Level 102, Carbon Dioxide Level 27, Anion Gap 8, Blood Urea Nitrogen 6L, Creatinine 0.9, Estimat Glomerular Filtration Rate > 60, Glucose Level 115H, Calcium Level 9.9 Current Medications Medications (Trade) Dose Ordered Sig/Mickie Route PRN Reason Start Time Stop Time Status Last Admin Dose Admin Acetaminophen (Tylenol) 650 mg Q4H PRN ORAL fever 05/12/19 23:00 06/11/19 22:59 Amlodipine Besylate (Norvasc) 5 mg DAILY ORAL 05/13/19 09:00 06/12/19 08:59 05/15/19 09:02 Clonidine HCl (Catapres Tab) 0.1 mg Q8H PRN ORAL For High Blood Pressure 05/13/19 20:30 06/12/19 20:29 Cyclobenzaprine HCl (Flexeril) 10 mg BEDTIME ORAL 05/14/19 21:00 05/20/19 21:01 05/14/19 21:13 Dextrose (Dextrose 50%) STAT PRN IV Hypoglycemia 05/12/19 23:00 06/11/19 22:59 Ibuprofen (Motrin) 400 mg THREE TIMES A DAY ORAL 05/14/19 19:00 05/21/19 13:01 05/14/19 19:52 Lorazepam (Ativan 2mg/ml 1ml) 0.5 mg Q4H PRN IV For Anxiety 05/12/19 23:00 05/19/19 22:59 Losartan Potassium (Cozaar) 50 mg DAILY ORAL 05/14/19 09:00 06/13/19 08:59 05/15/19 09:02 Morphine Sulfate (Morphine Sulfate) 1 mg Q4H PRN IVP For Pain 05/12/19 23:00 05/19/19 22:59 05/13/19 08:22 Ondansetron HCl (Zofran) 4 mg Q6H PRN IVP Nausea & Vomiting 05/12/19 23:00 06/11/19 22:59 Polyethylene Glycol (Miralax) 17 gm HSPRN PRN ORAL Constipation 05/12/19 23:00 06/11/19 22:59 Zolpidem Tartrate (Ambien) 5 mg HSPRN PRN ORAL Insomnia 05/12/19 23:00 05/19/19 22:59 Cecil Salguero MD May 15, 2019 11:18
[2019-05-15 12:00] VITALS: BP 145/89
--- NOTE | 2019-05-15 15:42 | NUR ---
WEED SPRAYERCLAY MOLDER SI: UNCONTROLLED HTN T. 98.1HR 81 RR 18 B/P 145/89 RA 02 SAT 99% WBC 4.1 RBC 4.59 HGB 12.0 HCT 36.6 BUN 6 GLUCOSE 115 IS: ADVIL ORAL FLEXERIL ORAL LOSARTAN ORAL AMLODIPINE ORAL DISCHARGE STATUS
--- NOTE | 2019-05-15 16:50 | NUR ---
NURSE NOTES: Pt. aware of DC planning. Discharge education given to Pt. and daughter. New medication prescription given to Pt. Copy signed and filled. IV removed, intact, site covered. Belongings checked singed. contact lens inspector removed. DC package given. VS stable. Left floor safely via wheelchair accompanied by RN.
--- NOTE | 2019-05-15 18:13 | Cardiology Progress Note ---
Assessment/Plan Assessment/Plan 1. Hypertension, stage II, will adjust losartan and amlodipine, 2D- echocardiography showed darnell LV systolic function with grade I LV diastolic dysfunction and normal intracardiac filling pressure. 2. History of left leg DVT. Completed 12 months of anticoagulation therapy. Subjective Subjective Sinus rhythm at rate of 81. Objective Last 24 Hour Vital Signs Date Time Temp Pulse Resp B/P (MAP) Pulse Ox O2 Delivery O2 Flow Rate FiO2 05/15/19 12:00 98.1 81 18 145/89 (107) 99 05/15/19 12:00 88 05/15/19 09:02 141/89 05/15/19 09:02 68 141/89 05/15/19 09:00 Room Air 05/15/19 08:00 68 05/15/19 08:00 98.2 75 18 141/89 (106) 100 05/15/19 04:00 67 05/15/19 04:00 98.0 67 18 133/81 (98) 98 05/15/19 00:00 98.1 62 18 139/89 (106) 99 05/15/19 00:00 62 05/14/19 21:00 Room Air 05/14/19 20:20 97.2 05/14/19 20:00 70 05/14/19 20:00 98.1 70 18 154/96 (115) 99 Neck: abnormal alignment Intake and Output 05/14/19 05/15/19 19:00 07:00 Intake Total 240 ml Balance 240 ml Intake Oral 240 ml # Voids 2 2 2D Echo: LVEF 60%, RVSP 9 mmHg, Grade I LVDD Laboratory Tests Test 05/15/19 06:35 White Blood Count 4.1 K/UL (4.8-10.8) L Red Blood Count 4.59 M/UL (4.70-6.10) L Hemoglobin 12.0 G/DL (14.2-18.0) L Hematocrit 36.6 % (42.0-52.0) L Mean Corpuscular Volume 80 FL (80-99) Mean Corpuscular Hemoglobin 26.2 PG (27.0-31.0) L Mean Corpuscular Hemoglobin Concent 32.9 G/DL (32.0-36.0) Red Cell Distribution Width 16.6 % (11.6-14.8) H Platelet Count 246 K/UL (150-450) Mean Platelet Volume 6.2 FL (6.5-10.1) L Neutrophils (%) (Auto) 66.7 % (45.0-75.0) Lymphocytes (%) (Auto) 20.7 % (20.0-45.0) Monocytes (%) (Auto) 8.4 % (1.0-10.0) Eosinophils (%) (Auto) 3.8 % (0.0-3.0) H Basophils (%) (Auto) 0.5 % (0.0-2.0) Sodium Level 137 MMOL/L (136-145) Potassium Level 3.5 MMOL/L (3.5-5.1) Chloride Level 102 MMOL/L (98-107) Carbon Dioxide Level 27 MMOL/L (21-32) Anion Gap 8 mmol/L (5-15) Blood Urea Nitrogen 6 mg/dL (7-18) L Creatinine 0.9 MG/DL (0.55-1.30) Estimat Glomerular Filtration Rate > 60 mL/min (>60) Glucose Level 115 MG/DL (74-106) H Calcium Level 9.9 MG/DL (8.5-10.1) Microbiology Date/Time Source Procedure Growth Status 05/12/19 21:37 Blood Blood Culture - Preliminary Staphylococcus Species Resulted 05/12/19 21:20 Blood Blood Culture - Preliminary NO GROWTH AFTER 24 HOURS Resulted Objective HEENT: Atraumatic and normocephalic. Anicteric. Pupils are equal, round, and reactive to light and accommodation. Extraocular muscles intact. NECK: JVP is less than 5 cm. No carotid bruit. Carotid upstrokes 2+ bilaterally. CARDIOVASCULAR: Normal S1, S2. Regular rate and rhythm. No murmurs, gallops, or rubs. PMI is at fourth intercostal space in the midclavicular line. LUNGS: Clear to auscultation bilaterally. ABDOMEN: Soft, nontender, and nondistended. No hepatosplenomegaly. Positive bowel sounds. EXTREMITIES: No evidence of edema, clubbing, or cyanosis. Michael Vazquez MD May 15, 2019 18:13
--- NOTE | 2019-05-16 13:54 | Discharge Summary ---
Discharge Summary Discharge Summary _ DATE OF ADMISSION: 05/12/2019 DATE OF DISCHARGE: 05/15/2019 DISCHARGED BY: Dr Ge REASON FOR ADMISSION: 48 years old male with past medical history of left lower extremity DVT in 2018 , status post anticoagulation therapy, presented to the hospital for evaluation of headaches. Patient reported prolonged hospitalization at [facility] for work-up of fever After 3 weeks he was diagnosed with likely valley fever. At that time patient was seen by infectious disease specialist and subsequently lumbar puncture performed. After lumbar puncture patient developed significant headaches. Patient required blood patch at [facility]. Patient reported that after that he was doing relatively well for 7 to 10 days. However, several days ago he started to have increased headaches. Headache was slowly started to progress. He denied any focal dizziness. He denied chest pain or shortness of breath. Upon evaluation blood pressure was elevated 166/99. Patient was tachypneic with respiratory rate of 26. Pulse oximetry was stable on room air. Laboratory work-up revealed no leukocytosis, hemoglobin 11.7, hematocrit 24.8. Stable electrolytes and renal parameters. Glucose 112. Lactic acid 1.3. Stable LFT and lipase. Urinalysis revealed no evidence of UTI. EKG revealed sinus rhythm, no acute ischemic changes. Chest x-ray revealed no acute cardiopulmonary pathology. CT of the head revealed no acute intracranial pathology. Patient subsequently admitted to telemetry floor for dizziness , headache , and malignant hypertension. CONSULTANTS: curriculum assistant Dr. Vazquez neurologist Dr. Thomas pulmonary Dr. Salguero [facility] COURSE: Patient admitted to telemetry floor. Server Programmer closely followed. Per curriculum assistant, patient had hypertension stage II. Patient started on calcium channel roxanne and losartan. Echocardiogram revealed preserved ejection fraction of 65% with no evidence of left ventricular hypertrophy. No evidence of wall motion abnormality. Normal intracardiac filling pressures. Blood pressure stabilized with current antihypertensive regimen. Lipid panel revealed elevated LDL 145, elevated total cholesterol 216. Patient was reluctant to start statin at this time. Patient was educated on low-fat low-cholesterol diet and need to check the lipid panel in 3 months. If lipid panel still remains elevated , strongly consider to start statin therapy. Venous duplex bilateral lower extremity revealed no evidence of acute DVT. Patient was completed anticoagulation therapy for treatment of DVT. Neurologist followed. Per neurologist, patient history, neurological examination, laboratory data and imaging studies were more consistent with muscle contraction headaches, probably with component of hypertensive headaches. Patient started on ibuprofen 400 mg 3 times a day for the next 5 days to help with muscle contraction headaches. Patient also started on Flexeril at nighttime. Patient clinically stabilized. Blood pressure improved, headache resolved. Patient was stable for discharge home with outpatient follow-up with a primary care provider. FINAL DIAGNOSES: Hypertension stage II History of left lower extremity DVT, s/p anticoagulation therapy Muscle contraction headache with possible component of hypertensive headache DISCHARGE MEDICATIONS: See Medication Reconciliation list. DISCHARGE INSTRUCTIONS: Patient was discharged home . Follow up with primary care provider in one week. I have been assigned to dictate discharge summary for this account. I was not involved in the patient's management. Jeannette Jones NP May 16, 2019 13:54
--- NOTE | 2019-05-16 17:58 | Cardiology Report ---
APPROVED REPORT EXAM: Two-dimensional and M-mode echocardiogram with Doppler and color Doppler. INDICATION Hypertension/HCVD M-Mode DIMENSIONS IVSd1.0 (0.7-1.1cm)Left Atrium (MM)3.3 (1.6-4.0cm) LVDd4.7 (3.5-5.6cm)Aortic Root2.6 (2.0-3.7cm) PWd1.0 (0.7-1.1cm)Aortic Cusp Exc.1.7 (1.5-2.0cm) LVDs3.0 (2.5-4.0cm) PWs1.3 cm Normal left ventricular chamber size, systolic function and wall motion. Left ventricular ejection fraction estimated to be 65%. No evidence of left ventricular hypertrophy. No evidence of pericardial effusion. All other cardiac chamber sizes are within normal limits. Mild focal aortic valve sclerosis with adequate cusp excursion. Mildly thickened mitral valve leaflets with normal excursion. Mild mitral annulus and aortic root calcification. Normal pulmonic valve structure. Normal tricuspid valve structure. IVC at normal size with physiologic collapse. A color flow and spectral Doppler study was performed and revealed: No aortic regurgitation. Trace mitral regurgitation. reduced left ventricular relaxation c/w impaired relaxation diastolic dysfunction. Trace tricuspid regurgitation. Tricuspid systolic velocities suggests peak right ventricular systolic pressure of 9 mmHg. consistent with mild, moderate, severe pulmonary hypertension. Mild pulmonic regurgitation present.
--- NOTE | 2019-05-16 23:02 | Diagnostic Imaging Report ---
APPROVED REPORT CPT Code: 13441 Present Symptoms Comments: Screening Past History DVT :Left BILATERAL: Imaging reveals a patent deep venous system bilaterally. There is no evidence of thrombus within the common femoral, superficial femoral, popliteal or tibial segments. The greater saphenous veins are within normal limits. Doppler indicates normal spontaneous flow within these segments.
== END 2019-05-15 16:15 | disposition home or self-care (01) | DRG 199 ==
LOC: EMR 21:40 → 2E 22:11 → EDBEDREQ 23:46
DX: I16.9 Hypertensive crisis, unspecified (principal); M62.830 Muscle spasm of back; E78.5 Hyperlipidemia, unspecified; D64.9 Anemia, unspecified; Z88.0 Allergy status to penicillin; R51 Headache; Z86.718 Personal history of other venous thrombosis and embolism
CPT/HCPCS: 36415; 70450; 71045; 80048; 80053; 80061; 81003; 82550; 82553; 83605; 83690; 84443; 85025; 87040; 87181; 93005; 93306; 93970; 96361; 96374; 96375; 99285; J2765; J8499

== ENCOUNTER 2019-12-02 20:55 | Emergency (ER) | payer MEDICAID ==
[~2019-12-02] VITALS: Ht 170.2 cm; Wt 79.4 kg
[~2019-12-02 20:55] MED LIST changes: +ACETAMINOPHEN-1 EAC1 ORAL; +CARVEDILOL3.125 MG ORAL; +COZAAR50 MG ORAL; +IBUPROFEN400 MG ORAL; +NORVASC5 MG ORAL
[2019-12-02] MEDS ORDERED: XARELTO10 MG ORAL (21:04)
[2019-12-02] MEDS ORDERED: ACETAZOLAMIDE250 MG ORAL (21:04)
[2019-12-02 21:15] VITALS: BP 139/91
[2019-12-02] MEDS ORDERED: MUPIROCIN22 GM TOPIC (21:43)
[2019-12-02] MEDS ORDERED: NORCO 5-325 TA1 EACH ORAL (21:43)
[2019-12-02] MEDS ORDERED: BACTRIM DS TAB1 EAC1 ORAL (21:43)
--- NOTE | 2019-12-02 21:43 | Emergency Room Report ---
History of Present Illness General Chief Complaint: Edema Source: Patient Present Illness HPI This a 49-year-old male with a history of high blood pressure. He also history of blood clot and is taking Xarelto. He presents with swelling to his right leg. He said this started 3 days ago pimple. He tried to pop it. Now is more swollen and tender. No drainage. No fever chills. Pain is 8 out of 10. Worse with movement. Better with rest. No drainage. Allergies: Coded Allergies: PENICILLINS (Verified Allergy, Unknown, 09/21/18) Patient History Past Medical History: see triage record, old chart reviewed Past Surgical History: other Pertinent Family History: none Social History: Denies: smoking Immunizations: other Reviewed Nursing Documentation: PMH: Agreed; PSxH: Agreed Nursing Documentation-PMH Past Medical History: No History, Except For Hx Cardiac Problems: No - BLOOD CLOT Hx Hypertension: Yes Hx Pacemaker: No Hx Asthma: No Hx COPD: No Hx Diabetes: No Hx Cancer: No Hx Gastrointestinal Problems: No Hx Dialysis: No Hx Neurological Problems: Yes Hx Cerebrovascular Accident: No Hx Seizures: No Hx Headaches: Yes Review of Systems Eye: Denies: eye pain, blurred vision ENT: Denies: ear pain, nose congestion, throat swelling Respiratory: Denies: cough, shortness of breath Cardiovascular: Denies: chest pain, palpitations Gastrointestinal: Denies: abdominal pain, diarrhea, nausea, vomiting Musculoskeletal: Denies: back pain, joint pain Skin: Denies: rash Neurological: Denies: headache, numbness Endocrine: Denies: increased thirst, increased urine Hematologic/Lymphatic: Denies: easy bruising All Other Systems: negative except mentioned in HPI Physical Exam Vital Signs Date Time Temp Pulse Resp B/P (MAP) Pulse Ox O2 Delivery O2 Flow Rate FiO2 12/02/19 20:59 98.8 100 14 139/91 (107) 98 Room Air Vitals normal Sp02 EP Interpretation: reviewed, normal General Appearance: well appearing, no apparent distress, alert Head: normocephalic, atraumatic Eyes: bilateral eye PERRL, bilateral eye EOMI ENT: hearing grossly normal, normal pharynx Neck: full range of motion, supple, no meningismus Respiratory: chest non-tender, lungs clear, normal breath sounds Cardiovascular #1: regular rate, rhythm, no murmur Gastrointestinal: normal bowel sounds, non tender, no mass, no organomegaly, no bruit, non-distended Musculoskeletal: back normal, normal range of motion, gait/station normal, other - Right lower extremity: On the lateral aspect of the mid calf area there is edema and mild erythema. Tender to palpation. There is a small fluctuant area of 2 mm with necrotic center. Psychiatric: mood/affect normal Procedures Incision and Drainage Incision and Drainage : Consent: Verbal Site: Right lower extremity Blade Size: 11 I & D Procedure: betadine prep Wound Location: lower extremity Anesthesia: 1% Lidocaine Volume Anesthetic (ccs): 1 Patient Tolerated: Well Complications: None Progress Area cleaned with Betadine. Local anesthetic 1% lidocaine. I made a 1 cm incision. There is scant amount of purulent discharge. Area probed with Shelley forcep. Only scant amount of drainage. Dressing done. Patient taught a procedure without any problem. Medical Decision Making Diagnostic Impression: Primary Impression: Cellulitis and abscess of right lower extremity ER Course This patient presents with cellulitis and early abscess of the lower extremity. Most likely MRSA. Dose of Bactrim given here. Will discharge home. Last Vital Signs Date Time Temp Pulse Resp B/P (MAP) Pulse Ox O2 Delivery O2 Flow Rate FiO2 12/02/19 21:15 100 14 Room Air 12/02/19 21:15 98.8 139/91 98 Status: improved Disposition: HOME, SELF-CARE Condition: Stable Scripts Mupirocin* (MUPIROCIN*) 22 Gm Oint...g. 1 APPLIC TOPIC THREE TIMES A DAY, #22 GM Prov: Aleks Gregg MD 12/02/19 Hydrocodone Bit/Acetaminophen 5-325* (NORCO 5-325*) 1 Each Tablet 1 TAB ORAL Q6H PRN for For Pain, #10 TAB 0 Refills Prov: Aleks Gregg MD 12/02/19 Trimethoprim/Sulfamethoxazole 160/800* (BACTRIM DS TABLET*) 1 Each Tablet 1 TAB ORAL Q12H, #14 TAB 0 Refills Prov: Aleks Gregg MD 12/02/19 Additional Instructions: Elevate leg. Keep wound clean. Clean first with hydroperoxide and apply antibiotic ointment. Follow-up with in 7 days for recheck. Return if worse. Aleks Gregg MD Dec 02, 2019 21:43
[2019-12-02] MEDS ORDERED: Bactrim-DS 1 tab ORAL ONE (21:45)
[2019-12-02 21:50] VITALS: BP 139/91
== END 2019-12-02 21:50 | disposition home or self-care (01) ==
LOC: EMR 21:50
DX: L03.115 Cellulitis of right lower limb (principal); Z79.01 Long term (current) use of anticoagulants; Z88.0 Allergy status to penicillin; I10 Essential (primary) hypertension
CPT/HCPCS: 10060; Z7502; 99283